=== PATIENT | female | born 1970 | race Caucasian/White ===

== ENCOUNTER 2023-08-06 07:36 | Outpatient (OUT) | payer BC, SELFPAY ==
[2023-08-06 07:56] LABS: Basophils Percent Auto 0.8 % (0.2-2.0); Eosinophils Absolute Auto 0.2 10^3/uL (0.0-0.7); Eosinophils Percent Auto 4.8 % (0.9-7.0); Hematocrit 38.3 % (36.0-48.0); Hemoglobin 12.4 g/dL (12.0-16.0); Immature Granulocytes Abs Auto 0.01 10^3/uL (0.00-0.03); Immature Granulocytes Pct Auto 0.2 % (0.0-0.5); Lymphocytes Absolute Auto 1.7 10^3/uL (1.2-3.8); Lymphocytes Percent Auto 34.6 % (20.5-60.0); Mean Corpuscular HGB Conc 32.4 g/dL (29.9-35.2); Mean Corpuscular Hemoglobin 30.1 pg (26.7-34.0); Mean Platelet Volume 10.2 fL (9.5-13.5); Monocytes Absolute Auto 0.5 10^3/uL (0.3-0.8); Monocytes Percent Auto 9.7 % (1.7-12.0); Neutrophils Absolute Auto 2.4 10^3/uL (1.4-6.5); Neutrophils Percent Auto 49.9 % (43.0-75.0); Platelet Count 290 10^3/uL (150-450); Red Blood Count 4.12 10^6/uL (4.20-5.40); Red Cell Distribution Width 12.1 % (11.0-15.0); White Blood Count 4.8 10^3/uL (4.0-11.0)
[2023-08-06 08:16] LABS: Estimated Average Glucose 103 mg/dL; Glycohemoglobin A1C 5.2 % (4.5-6.2)
[2023-08-06 08:27] LABS: Alanine Aminotransferase 33 U/L (14-59); Albumin Globulin Ratio 1.3; Albumin Level 3.9 g/dL (3.4-5.0); Alkaline Phosphatase 51 U/L (46-116); Anion Gap 8.4; Aspartate Amino Transferase 21 U/L (15-37); BUN Creatinine Ratio 32.8; Bilirubin Total 0.4 mg/dL (0.2-1.0); Calcium 9.1 mg/dL (8.5-10.1); Carbon Dioxide 31.8 mmol/L (21.0-32.0); Chloride 106 mmol/L (98-107); Chol HDL Ratio 2.6; Cholesterol 193 mg/dL (<=200); Estimated GFR (African America >60 (>=60); Estimated GFR (Non-African Ame >60 (>=60); Globulin 3.1 g/dL; Glucose 91 mg/dL (74-106); HDL Cholesterol 74 mg/dL (40-60); Potassium 4.2 mmol/L (3.5-5.1); Sodium 142 mmol/L (136-145); Thyroid Stimulating Hormone 4.201 uIU/mL (0.358-3.740); Triglycerides 60 mg/dL (<=150)
[2023-08-06 09:31] LABS: Free T4 0.86 ng/dL (0.76-1.46)
== END 2023-08-06 07:37 | disposition home or self-care (01) ==
PROVIDERS: PCP Family Medicine; Visit Provider Family Medicine
DX: R55 Syncope and collapse (principal); R94.6 Abnormal results of thyroid function studies; E78.1 Pure hyperglyceridemia; Z12.11 Encounter for screening for malignant neoplasm of colon; R53.83 Other fatigue; R73.09 Other abnormal glucose
CPT/HCPCS: 36415; 80053; 80061; 83036; 84439; 84443; 85025

== ENCOUNTER 2023-08-10 16:39 | Outpatient (OUT) | payer BC, SELFPAY | END 2023-08-10 16:40 | disposition home or self-care (01) | LOC: LAB 16:41 | PROVIDERS: PCP Family Medicine; Visit Provider Family Medicine | DX: R53.83 Other fatigue (principal) | CPT/HCPCS: 36415; 83540 ==

== ENCOUNTER 2023-08-22 11:01 | Outpatient (OUT) | payer BC, SELFPAY ==
[2023-08-22 11:59] LABS: Thyroid Stimulating Hormone 2.819 uIU/mL (0.358-3.740)
--- OUTSIDE RECORDS SUMMARY | 2023-10-02 13:57 | XMS_ITS | CCD ---
Author Name Unknown Address [address] [facility] [address] [place] [address] Organization [facility] Care Team Providers Care Medication Specialist Name Role Phone KHUSHI VELAZCO Referring Unavailable YADIRA UNDERWOOD Primary Care Unavailable KHUSHI VELAZCO Referring Unavailable YADIRA UNDERWOOD Primary Care Unavailable Yadira Underwood MD Primary Care Provider [phone] MONTY, DR MAY Admitting Unavailable HOY, DR MAY Attending Unavailable ROSANAY, DR MAY Primary Care Unavailable HOY, DR MAY Admitting Unavailable HOY, DR MAY Attending Unavailable HOY, DR MAY Primary Care Unavailable HOY, DR MAY Consulting Unavailable HOY, DR MAY Admitting Unavailable HOY, DR MAY Attending Unavailable HOY, DR MAY Primary Care Unavailable HOY, DR MAY Consulting Unavailable CLAUS LOCKWOOD Admitting Unavailable CLAUS LOCKWOOD Attending Unavailable ROSANAY, DR MAY Primary Care Unavailable HOY, DR MAY Admitting Unavailable HOY, DR MAY Attending Unavailable ROSANAY, DR MAY Primary Care Unavailable HOY, DR MAY Consulting Unavailable MONTY, DR MAY Admitting Unavailable HOY, DR MAY Attending Unavailable MONTY, DR MAY Primary Care Unavailable HOKaren, DR MAY Consulting Unavailable ROSANAY, DR MAY Admitting Unavailable HOY, DR MAY Attending Unavailable MONTY, DR MAY Primary Care Unavailable HOY, DR MAY Consulting Unavailable MONTY, DR MAY Admitting Unavailable MONTY, DR MAY Attending Unavailable MONTY, DR MAY Primary Care Unavailable MONTY, DR MAY Consulting Unavailable MONTY, DR MAY Admitting Unavailable HOY, DR MAY Attending Unavailable MONTY, DR MAY Primary Care Unavailable YADIRA UNDERWOOD Primary Care Unavailable KHUSHI VELAZCO Attending Unavailable Yadira Underwood MD Primary Care Provider [phone] Medications Completed/Discontinued Medications Medication Drug Class(es) Dates Sig (Normalized) Sig (Original) benzoyl peroxide 0.05 mg/mg / clindamycin 0.01 mg/mg topical gel (2 sources) Lincosamide Antibacterial Start: 04-14-2015 Clindamycin-Benzo yl Peroxide 1-5 % gel Use as directed. 0 04/14/2015 Active Comment on above: Use as directed. ferrous sulfate 325 mg oral tablet (2 sources) take 1 tablet by mina th once daily at breakfast ferrous sulfate (FEROSUL) 325 mg (65 mg iron) tablet Take 325 mg by mouth daily with breakfast. 0 Active Comment on above: Take 325 mg by mouth daily with breakfast. minocycline 50 mg oral capsule (2 sources) Tetracycline-class Drug take 1 capsule b y mouth twice daily minocycline (MINOCIN, DYNACIN) 50 mg capsule Take 50 mg by mouth twice daily. 0 Active Comment on above: Take 50 mg by mouth twice daily. spironolactone 50 mg oral tablet (2 sources) Aldosterone Antagonist Start: 06-18-2015 take 1 tablet by mouth twice daily spironolactone (ALDACTONE) 50 mg tablet Take 1 tablet by mouth twice daily. 0 06/18/2015 Active Comment on above: Take 1 tablet by mina th twice daily. Problems Active Problems Problem Classification Problem Date Documented Date Episodic/Chronic Deficiency and other anemia (5 sources) Anemia, unspecified; Translations: [ANEMIA UNSPECIFIED] Onset: 08-06-2022 Episodic Diabetes mellitus without complication (1 source) Other abnormal glucose; Translations: [OTHER ABNORMAL GLUCOSE] Onset: 07-10-2022 Episodic Immunizations and screening for infectious disease (4 sources) Other specified abnormal immunological findings in serum; Translations: [Anti-nuclear factor positive] Onset: 09-21-2017 09-21-2017 Episodic Nutritional deficiencies (1 source) Vitamin D deficiency, unspecified; Translations: [VITAMIN D DEFICIENCY UNSPECIFIED] Onset: 08-27-2022 Chronic Nutritional deficiencies (1 source) Iron deficiency; Translations: [IRON DEFICIENCY] Onset: 08-27-2022 Episodic Osteoarthritis (2 sources) Arthritis; Translations: [Unspecified osteoarthritis, unspecified site] Onset: 09-21-2017 09-21-2017 Chronic Residual codes; unclassified (1 source) Other insomnia; Translations: [OTHER INSOMNIA] Onset: 08-06-2022 Chronic Syncope (4 sources) Syncope and collapse; Translations: [SYNCOPE AND COLLAPSE] Onset: 08-02-2022 Episodic Unclassified (3 sources) CONTACT W/AND (SUSP) EXPOS COVID-19; Translations: [CONTACT W/AND (SUSP) EXPOS COVID-19] Onset: 09-10-2021 Past or Other Problems Problem Classification Problem Date Documented Da te Episodic/Chronic Acute bronchitis (1 source) Acute bronchitis, unspecified; Translations: [ACUTE BRONCHITIS UNSPECIFIED] Onset: 09-10-2021 Episodic Malaise and fatigue (2 sources) Malaise and fatigue; Translations: [Other malaise] Onset: 09-21-2017 09-21-2017 Episodic Unclassified (1 source) CONTACT W/AND (SUSP) EXPOS COVID-19; Translations: [CONTACT W/AND (SUSP) EXPOS COVID-19] Onset: 09-02-2021 Results Test Name Value Interpretation Reference Range Facil ity CBC AUTO DIFFon 08-22-2022 BASO # 0.0 103/ul Normal 0.0-0.1 [facility] Comment on above: Performed By: #### S EDR #### [facility] [address] [place] [address] Dr. Heather Day Basophils/100 WBC (Bld) 0.6 % Normal 0.2-2.0 [facility] Comment on above: Performed By: #### S EDR #### [facility] [address] [place] [address] Dr. Heather Day EO # 0.2 103/ul Normal 0.0-0.7 [facility] Comment on above: Performed By: #### S EDR #### [facility] [address] [place] [address] Dr. Heather Day Eosinophils/100 WBC (Bld) 3.2 % Normal 0.9-7.0 [facility] Comment on above: Performed By: #### S EDR #### [facility] [address] [place] [address] Dr. Heather Day Erythrocyte distribution wid th (RBC) [Ratio] 12.3 % Normal 11.0-15.0 [facility] Comment on above: Performed By: #### S EDR #### [facility] [address] [address] [address] Heather Day Hematocrit (Bld) [Volume fraction] 38.6 % Normal 3 6.0-48.0 [facility] Comment on above: Performed By: #### S EDR #### [facility] [address] [place] [address] Dr. Heather Day Hemoglobin (Bld) [Mass/Vol] 12.7 g/dL Normal 12.0-16. 0 [facility] Comment on above: Performed By: #### S EDR #### [facility] [address] [place] [address] Dr. Heather Day IG # 0.02 10e3/ul Normal 0.00-0.03 [facility] Comment on above: Performed By: #### S EDR #### [facility] [address] [place] [address] Dr. Heather Day IG % 0.3 % Normal 0.0-0.5 [facility] Comment on above: Performed By: #### S EDR #### [facility] [address] [place] [address] Dr. Heather Day LYMPH # 2.6 103/ul Normal 1.2-3.8 [facility] Comment on above: Performed By: #### S EDR #### [facility] [address] [place] [address] Dr. Heather Day Lymphocytes/100 WBC (Bld) 36.0 % Normal 20.5-60.0 [facility] Comment on above: Performed By: #### S EDR #### [facility] [address] [place] [address] Dr. Heather Day MANUAL DIFF REQ NO Normal [facility] Comment on above: Performed By: #### S EDR #### [facility] [address] [place] [address] Dr. Heather Day MCH (RBC) [Entitic mass] 29.7 pg Normal 26.7-34.0 [facility] Comment on above: Performed By: #### S EDR #### [facility] [address] [place] [address] Dr. Heather Day MCHC (RBC) [Mass/Vol] 32.9 g/dL Normal 29.9-35.2 [facility] Comment on above: Performed By: #### S EDR #### [facility] [address] [place] [address] Dr. Heather Day MCV (RBC) [Entitic vol] 90.2 fL Normal 81.0-99.0 [facility] Comment on above: Performed By: #### S EDR #### [facility] [address] [place] [address] Dr. Heather Day MONO # 0.5 103/ul Normal 0.3-0.8 [facility] Comment on above: Performed By: #### S EDR #### [facility] [address] [place] [address] Dr. Heather Day Monocytes/100 WBC (Bld) 6.8 % Normal 1.7-12.0 [facility] Comment on above: Performed By: #### S EDR #### [facility] [address] [place] [address] Dr. Heather Day NEUT # 3.8 103/ul Normal 1.4-6.5 [facility] Comment on above: Performed By: #### S EDR #### [facility] [address] [place] [address] Dr. Heather Day Neutrophils/100 WBC (Bld) 53.1 % Normal 43.0-75.0 [facility] Comment on above: Performed By: #### S EDR #### [facility] [address] [place] [address] Dr. Heather Day Platelet mean volume (Bld) [ Entitic vol] 10.1 fL Normal 9.5-13.5 [facility] Comment on above: Performed By: #### S EDR #### [facility] [address] [place] [address] Dr. Heather Day PLT 309 103/ul Normal 150-450 [facility] Comment on above: Performed By: #### S EDR #### [facility] [address] [address] [address] Heather Day RBC 4.28 106/ul Normal 4.20-5.40 [facility] Comment on above: Performed By: #### S EDR #### [facility] [address] [address] [address] Heather Day WBC 7.1 103/ul Normal 4.0-11.0 [facility] Comment on above: Performed By: #### S EDR #### [facility] [address] [place] [address] Dr. Heather Day FERRITINon 08-22-2022 Ferritin [Mass/Vol] 60.0 ng/mL Normal 8.0-252.[address] [facility] Comment on above: Performed By: #### F ERR, IRON #### [facility] [address] [place] [address] Dr. Heather Day IRONon 08-22-2022 Iron [Mass/Vol] 66.0 ug/dL Normal 50.0-170.0 [facility] Comment on above: Performed By: #### F ERR, IRON #### [facility] [address] [place] [address] Dr. Heather Day BETA 2 GLYCOPROTEIN, IGGon 1 Beta 2 glycoprotein 1 IgG IA Qn <9 Normal <20 [facility] Comment on above: Order Comment: Speci men Type: BLOOD SPECIMEN Ordering Facility: [facility] Address: [address] [place] [address] Result Comment: <20 SGU Negative 20-80 SGU Low Positive >80 SGU High Positive These results were obtained with the [employer] QUANTA Lite B2 GPI IgG LISSETTE. B2 GPI IgG values obtained with different manufacturers' assay methods may not be used interchangeably. The magnitude of the reported IgG levels cannot be correlated to an endpoint titer. Performed By: #### C ARDIG, BETA2M, BETA2G, 5076-5, CARDIM #### [facility] CLIA [id number] [address] [place] [address] [place] BETA 2 GLYCOPROTEIN, IGMon 1 Beta 2 glycoprotein 1 IgM IA Qn <9 Normal <20 [facility] Comment on above: Order Comment: Jeffrey schwartz Type: BLOOD SPECIMENOrdering Facility: [facility] Address: [address] [place] [address] Result Comment: <20 SMU Negative 20-80 SMU Low Positive >80 SMU High positive These results were obtained with the [employer] Lite B2 GPI IgM LISSETTE. B2 GPI IgM values obtained with different manufacturers' assay methods may not be used interchangeably. The magnitude of the reported IgM levels cannot be correlated to an endpoint titer. Performed By: #### C ARDIG, BETA2M, BETA2G, 5076-5, CARDIM ####[facility] [id number] [place] [address] [place] C3 SerPl-mCncon 08-10-2022 Complement C3 [Mass/Vol] 130 mg/dL Normal 86-166 [facility] Comment on above: Order Comment: Jeffrey schwartz Type: BLOOD SPECIMEN Ordering Facility: [facility] Address: [address] [place], [place] [address] Performed By: #### 4 498-2, 4485-9 #### [facility] CLIA [id number] [address] [place] [address] [place] C4 SerPl-mCncon 08-10-2022 Complement C4 [Mass/Vol] 28 mg/dL Normal 13-46 [facility] Comment on above: Order Comment: Jeffrey schwartz Type: BLOOD SPECIMEN Ordering Facility: [facility] Address: [address] [place], [place] [address] Performed By: #### 4 498-2, 4485-9 #### [facility] CLIA [id number] [address] [place] [address] [place] CARDIOLIPIN IGG ABSon 2021 Cardiolipin IgG IA Qn (S) <9.0 Normal <15.0 [facility] Comment on above: [facility] Type: BLOOD SPECIMENOrdering Facility: [facility] Address: [address] [place] [address] Result Comment: <15 GPL Negative 15-20 GPL Indeterminate >20 GPL Positive The following results were obtained with the [employer] QUANTA Lite TIFFANIE IgG III LISSETTE. Cardiolipin IgG values obtained with the different manufacturers' assay methods may not be used interchangeably. The magnitude of the reported IgG levels cannot be correlated to an endpoint titer. Performed By: #### C ARDIG, BETA2M, BETA2G, 5076-5, ALLYSON ####[facility] [id number] [address] CARDIOLIPIN IGM ABSon 2021 Cardiolipin IgM IA Qn (S) 9.1 MPL Normal <12.5 [facility] Comment on above: [facility] Comment: [facility] Type: BLOOD SPECIMENOrdering Facility: [facility] Address: [address] [place] [address] Result Comment: <12. 5 MPL Negative 12.5-20 MPL Indeterminate >20 MPL Positive The following results were obtained with the [employer] QUANTA Lite TIFFANIE IgM III LISSETTE. Cardiolipin IgM values obtained with the different manufacturers' assay methods may not be used interchangeably. The magnitude of the reported IgM levels cannot be correlated to an endpoint titer. ??? Performed By: #### C ARDIG, BETA2M, BETA2G, 5076-5, ALLYSON ####[facility] [id number] [address] CBC W Auto Differential pane l (Bld)on 08-10-2022 Basophils (Bld) [#/Vol] 0.03 10*3/uL Normal <0.11 [facility] Comment on above: Order Comment: [facility] Type: BLOOD SPECIMEN Ordering Facility: [facility] Address: [address] [place] [address] Performed By: #### 5 7021-8 #### [facility] CLIA [id number] [facility] [place] [address] [place] Basophils/100 WBC (Bld) 0.4 % Normal [facility] Comment on above: Order Comment: Speci men Type: BLOOD SPECIMEN Ordering Facility: [facility] Address: [address] [address] Performed By: #### 5 7021-8 #### [facility] [place] [id number] [address] [place] Differential cell count method Nom (Bld) Auto Normal [facility] Comment on above: Order Comment: Speci men Type: BLOOD SPECIMEN Ordering Facility: [facility] Address: [address] [place] [address] Performed By: #### 5 7021-8 #### [facility] [place] [id number] [address] [place] [address] [place] Eosinophils (Bld) [#/Vol] 0.13 10*3/uL Normal <0.46 [facility] Comment on above: Order Comment: Speci men Type: BLOOD SPECIMEN Ordering Facility: [facility] Address: [address] [place] [address] Performed By: #### 5 7021-8 #### [facility] [place] [id number] [address] OF [place] Eosinophils/100 WBC (Bld) 1.6 % Normal [facility] Comment on above: Order Comment: Speci men Type: BLOOD SPECIMEN Ordering Facility: [facility] Address: [address] [place] [address] Performed By: #### 5 7021-8 #### [facility] [place] [id number] [address] [place] Erythrocyte distribution width (RBC) [Ratio] 12.4 % No rmal 11.5-15.0 [facility] Comment on above: Order Comment: Speci men Type: BLOOD SPECIMEN Ordering Facility: [facility] Address: [address] [place] [address] Performed By: #### 5 7021-8 #### [facility] IA [id number] [address] [place] [address] [place] Hematocrit (Bld) [Volume fraction] 41.6 % Normal 3 6.0-46.0 [facility] Comment on above: Order Comment: Speci men Type: BLOOD SPECIMEN Ordering Facility: [facility] Address: [address] [place], [place] [address] Performed By: #### 5 7021-8 #### [facility] IA [id number] [address] [place] [address] [place] Hemoglobin (Bld) [Mass/Vol] 13.4 g/dL Normal 11.5-15. 5 [facility] Comment on above: Order Comment: Speci men Type: BLOOD SPECIMEN Ordering Facility: [facility] Address: [address] [place], [place] [address] Performed By: #### 5 7021-8 #### [facility] IA [id number] [address] [place] [address] [place] Immature granulocytes (Bld) [#/Vol] 10*3/uL Normal <0.10 [facility] Comment on above: Order Comment: Speci men Type: BLOOD SPECIMEN Ordering Facility: [facility] Address: [address] [place], [place] [address] Performed By: #### 5 7021-8 #### [facility] IA [id number] [address] [place] [address] [place] Immature granulocytes/100 WBC (Bld) 0.2 % Normal [facility] Comment on above: Order Comment: Speci men Type: BLOOD SPECIMEN Ordering Facility: [facility] Address: [address] [place], [place] [address] Performed By: #### 5 7021-8 #### [facility] IA [id number] [address] [place] [address] [place] Lymphocytes (Bld) [#/Vol] 2.36 10*3/uL Normal 1.00-4.0 0 [facility] Comment on above: Order Comment: Speci men Type: BLOOD SPECIMEN Ordering Facility: [facility] Address: [address] [place] [address] Performed By: #### 5 7021-8 #### [facility] IA [id number] [address] STATES OF [facility] Lymphocytes/100 WBC (Bld) 28.3 % Normal [facility] Comment on above: Order Comment: Speci men Type: BLOOD SPECIMEN Ordering Facility: [facility] Address: [address] [place] [address] Performed By: #### 5 7021-8 #### [facility] IA [id number] [place] [address] [place] MCH (RBC) [Entitic mass] 30.0 pg Normal 26.0-34.0 [facility] Comment on above: Order Comment: Speci men Type: BLOOD SPECIMEN Ordering Facility: [facility] Address: [address] [place] [address] Performed By: #### 5 7021-8 #### [facility] IA [id number] [address] [place] [address] [place] MCHC (RBC) [Mass/Vol] 32.2 g/dL Normal 30.5-36.0 [facility] Comment on above: Order Comment: Speci men Type: BLOOD SPECIMEN Ordering Facility: [facility] Address: [address] [place], [place] [address] Performed By: #### 5 7021-8 #### [facility] IA [id number] [address] [place] [address] [place] MCV (RBC) [Entitic vol] 93.1 fL Normal 80.0-100.0 [facility] Comment on above: Order Comment: Speci men Type: BLOOD SPECIMEN Ordering Facility: [facility] Address: [address] [place] [address] Performed By: #### 5 7021-8 #### [facility] IA [id number] [address] [place] [address] [place] Monocytes (Bld) [#/Vol] 0.62 10*3/uL Normal <0.87 [facility] Comment on above: Order Comment: Speci men Type: BLOOD SPECIMEN Ordering Facility: [facility] Address: [address] Performed By: #### 5 7021-8 #### [facility] CLIA [id number] [address] [place] [address] [place] Monocytes/100 WBC (Bld) 7.4 % Normal [facility] Comment on above: Order Comment: Speci men Type: BLOOD SPECIMEN Ordering Facility: [facility] Address: [address] [place], [place] [address] Performed By: #### 5 7021-8 #### [facility] IA [id number] [address] [place] [address] [place] Neutrophils (Bld) [#/Vol] 5.19 10*3/uL Normal 1.45-7.5 0 [facility] Comment on above: Order Comment: Speci men Type: BLOOD SPECIMEN Ordering Facility: [facility] Address: [address] [place], [place] [address] Performed By: #### 5 7021-8 #### [facility] IA [id number] [address] [place] [address] [place] Neutrophils/100 WBC (Bld) 62.1 % Normal [facility] Comment on above: Order Comment: Speci men Type: BLOOD SPECIMEN Ordering Facility: [facility] Address: [address] [place], [place] [address] Performed By: #### 5 7021-8 #### [facility] IA [id number] [address] [place] [address] [place] Nucleated RBC (Bld) [#/Vol] 10*3/uL Normal <0.01 [facility] Comment on above: Order Comment: Speci men Type: BLOOD SPECIMEN Ordering Facility: [facility] Address: [address] [place], [place] [address] Performed By: #### 5 7021-8 #### [facility] IA [id number] [address] [place] [address] [place] Nucleated RBC/100 WBC (Bld) [Ratio] 0.0 /100 WBC Normal [facility] Comment on above: Order Comment: Speci men Type: BLOOD SPECIMEN Ordering Facility: [facility] Address: [address] [place], [place] [address] Performed By: #### 5 7021-8 #### [facility] IA [id number] [address] [place] [address] [place] Platelet mean volume (Bld) [Entitic vol] 10.3 fL Normal 9.0-12.7 [facility] Comment on above: Order Comment: Speci men Type: BLOOD SPECIMEN Ordering Facility: [facility] Address: [address] [place], [place] [address] Performed By: #### 5 7021-8 #### [facility] IA [id number] [address] [place] [address] [place] Platelets (Bld) [#/Vol] 326 10*3/uL Normal 150-400 [facility] Comment on above: Order Comment: Speci men Type: BLOOD SPECIMEN Ordering Facility: [facility] Address: [address] [place], [place] [address] Performed By: #### 5 7021-8 #### [facility] IA [id number] [address] [place] [address] [place] RBC (Bld) [#/Vol] 4.47 10*6/uL Normal 3.90-5.20 [facility] Comment on above: Order Comment: Speci men Type: BLOOD SPECIMEN Ordering Facility: [facility] Address: [address] [place], [place] [address] Performed By: #### 5 7021-8 #### [facility] IA [id number] [address] [place] [address] [place] WBC (Bld) [#/Vol] 8.35 10*3/uL Normal 3.70-11.00 [facility] Comment on above: Order Comment: Jeffrey schwartz Type: BLOOD SPECIMEN Ordering Facility: [facility] Address: [address] [place], [place] [address] Performed By: #### 5 7021-8 #### [facility] CLIA [id number] [address] OF [facility] CK SerPl-cCncon 08-10-2022 CK [Catalytic activity/Vol] 56 U/L Normal 42-196 [facility] Comment on above: Order Comment: Jeffrey schwartz Type: BLOOD SPECIMEN Ordering Facility: [facility] Address: [address] [place] [address] Performed By: #### 2 157-6 #### [facility] CLIA [id number] CNOVon 08-10-2022 CNOV Office Visit (NOLAN ) DONTAE VIVEROS ([id number]) 1970 F Date Time Provider Department 08/10/22 2:00 PM KHUSHI VELAZCO During your visit today, we recorded the following information about you: Pulse Blood pressure Weight 73/minute 139/75 56.2 kg Khushi Velazco MD 09/04/2022 4:45 AM Signed 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 The history as it pertains to her current complaints is outlined as follows: -Sep 2017: was evaluated by touring production manager Dr. Donald Ty (with edits for brevity and focus): 46 year old female with PMHx significant for positive DOROTHY and joint pain October started having hair loss January and February started developing stiffness Mostly lower limb, hips and knees Whenever she sat for a long period of time Started developing low grade tempt 99.9, February through Jun Developing more fatigue during this time May-went on a gluten free diet No longer having low grade temps Takes ibuprofen, somewhat helps the joints Does help her headaches In the afternoon she feels like she has slurred speech She feels the ibuprofen helps the slurred speech? Joint pain is a 1/10 in severity Once A week the joint pain is more intense and wakes her up at night No swelling of the joints No rashes Sitting makes the joint pain worse Activity makes the joint pain better Can't give a time of how long it takes the joint pain to improve to baseline Surprisingly joint isn't at it's worse in the morning, just after she sits during the day Pain is more of a stiffness in quality + concentration difficulties No major memory troubles Fatigue is bad Sleep-sleeps 9-10 hours, doesn't feel refreshed No anxiety No depression No diarrhea or constipation... ...Joint pain-knees/ lateral thighs-no swelling, occurs after sitting for prolonged periods. Maybe early inflammatory arthritis but nothing significant on exam today. She has a positive DOROTHY of 1:320 although this may be related to the anti thyroid antibodies. Will get an DANIEL and DS DNA to better characterize. Her pain could be tendonitis as well. Had some IT pain on exam today. Will follow every few months to see if pain changes Fatigue-maybe secondary to underlying inflammatory process, unclear at this time. fibromyalgia ROS was mostly negative. 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 -she has chronic issues with tingling of the toes, slurring of words and trouble concentrating but in Jun 2022, she developed new onset generalized weakness, imbalance, all over tingling and nausea. She also has fleeting (lasting 20-30 seconds) episodes of presyncope. These symptoms are similar to the symptoms that she was experiencing in 2017 but she notes that the symptoms are more severe. She takes ibuprofen and the slurred speech and trouble concentrating improves briefly. -workup by PCP revealed iron deficiency anemia. . PCP advised her to start iron supplements -she has mild chronic aches (right hip and right thigh, no more than 3-4/10) and fatigue for several years. No worsening of these symptoms. No pain elsewhere. No joint swelling. EMS lasting only a few minutes. She has stiffness with periods of inactivity but it will resolve with a few minutes of movement -when asked, she admits to aphthous oral ulcer last week but no history of recurrent oral ulcers. -denies history of miscarriages, strokes, seizures, thromboembolic events, rash, skin photosensitivity, hematuria, digital ulcers, fingers/toes turning blue or blanching with cold exposure, personal or family history of psoriasis, uveitis, history of plantar fasciitis, or back pain. -she takes Ibuprofen 800 mg BID (up to TID) for headaches and concentration difficulties. Ibuprofen and Tylenol do not alleviate her musculoskeletal symptoms. Labs: (+)DOROTHY 1:320 homogeneous), (+)thyroglobulin Ab 57.7 H (<14.4). (-)DS DNA/DANIEL panel. UA negative. (-)RF/CCP. Normal sed rate and crp THERAPIES/MEDICATIONS TRIED NSAIDs: ibuprofen Others: Tylenol Injections in joints: none Injections in spine: none Review of Systems CONSTITUTION: Negative for: Fever and Recent weight change (+)fatigue HEENT: Positive for: Mouth sores (see [place]) Negative for: Trouble swallowing and Dry mouth RESPIRATORY: Positive for: Shortness of breath (DYKES) Negative for: Cough GASTROINTESTINAL: Negative for: Melena, Diarrhea and Abdominal pain (+)constipation MUSCULOSKELETAL: Positive for: Muscle weakness NEUROLOGICAL: Positive for: Headaches and Numbness (toes and infrequently toes) SKIN: Positive for: Hair loss Negative for: Rash, Sun Sensitive Rash and Skin changes EYES: Positive for: Eye dryness Negativ (more content not included)... Normal [facility] Cardiolipin IgA Ser IA-aCnco n 08-10-2022 Cardiolipin IgA IA Qn (S) <9.0 Normal <12.0 [facility] Comment on above: Order Comment: Speci men Type: BLOOD SPECIMENOrdering Facility: [facility] Address: [address] [place] [address] Result Comment: <12 APL Negative 12-20 APL Indeterminate >20 APL Positive The following results were obtained with the [employer] QUANTA Lite TIFFANIE IgA III LISSETTE. Cardiolipin IgA values obtained with the different manufacturers' assay methods may not be used interchangeably. The magnitude of the reported IgA levels cannot be correlated to an endpoint titer. Performed By: #### C ARDIG, BETA2M, BETA2G, 5076-5, CARDIM ####[facility] [id number] [address] OF [place] LUPUS PANELon 08-10-2022 aPTT Coag (Bld) [Time] 30.3 s Normal 24.0-35.1 [facility] Comment on above: Order Comment: Speci men Type: BLOOD SPECIMEN [facility] Address: [address] [address] Performed By: #### L UPPL #### [facility] CLIA [id number] [address] [place] [address] OF [place] aPTT W excess hexagonal phas e phospholipid Coag (PPP) [Time] 46.5 seconds Normal 34.0-51.8 A [facility] Comment on above: Order Comment: Speci men Type: BLOOD SPECIMEN [facility] Address: [address] [address] Performed By: #### L UPPL #### [facility] CLIA [id number] [address] [place] [address] Delta dRVVT Coag (PPP) [Time diff] 1.3 delta seconds Lore l <7.1 [facility] Comment on above: Order Comment: Speci men Type: BLOOD SPECIMEN [facility] Address: [address] Performed By: #### L UPPL #### [facility] CLIA [id number] [address] [place] [address] dRVVT Coag (PPP) [Time] 38.6 s Normal 32.0-45.7 A [facility] Comment on above: Order Comment: Speci men Type: BLOOD SPECIMEN [facility] Address: [address] Performed By: #### L UPPL #### [facility] CLIA [id number] [address] [place] [address] [place] dRVVT factor substitution im mediately after 1:2 addition of normal plasma Coag (PPP) [Time] 37.4 seconds Normal 32.0-45.7 [facility] Comment on above: Order Comment: Speci men Type: BLOOD SPECIMEN [facility] Address: [address] [place], [place] [address] Performed By: #### L UPPL #### [facility] CLIA [id number] [address] [place] [address] [place] dRVVT W excess hexagonal pha se phospholipid actual/normal Coag (PPP) [Relative time] 45.1 seconds Normal 34.2-47.9 [facility] Comment on above: Order Comment: Speci men Type: BLOOD SPECIMEN [facility] Address: [address] [place], [place] [address] Performed By: #### L UPPL #### [facility] [place] [id number] [address] [place] [address] [place] dRVVT/dRVVT.excess phospholipid Coag (PPP) [Ratio] 1.06 Normal <1.32 [facility] Comment on above: Order Comment: Speci men Type: BLOOD SPECIMEN [facility] Address: [address] [place], [place] [address] Performed By: #### L UPPL #### [facility] CLIA [id number] [address] [place] [address] [place] Lupus anticoagulant neutrali zation platelet Coag Ql (PPP) Negative Normal Negative [facility] Comment on above: Order Comment: Speci men Type: BLOOD SPECIMEN [facility] Address: [address] [place], [place] [address] Performed By: #### L UPPL #### [facility] IA [id number] [address] [place] [address] [place] Thrombin time Coag (PPP) [Time] 16.8 seconds Normal <1 8.6 [facility] Comment on above: Order Comment: Jeffrey schwartz Type: BLOOD SPECIMEN [facility] Address: [address] [place] [address] Performed By: #### L UPPL #### [facility] CLIA [id number] [address] [facility] DESK [id number] OF [place] PT panel Coag (PPP)on 2021 INR Coag (PPP) [Relative time] 1.0 {INR} Normal 0.9-1 .3 [facility] Comment on above: Order Comment: Jeffrey schwartz Type: BLOOD SPECIMEN [facility] Address: [address] [place] [address] Result Comment: Mere min K Antagonist (VKA) Therapeutic Range: INR 2 to 3 (Target INR of 2.5) Note: For patients treated with VKA drugs, such as warfarin, the [place] [employer] 2012 Guideline recommends a therapeutic INR range of 2 to 3 (target INR of 2.5). This recommendation includes high-risk patients with antiphospholipid syndrome with previous arterial or venous thromboembolism, current-generation mechanical or bioprosthetic aortic heart valve replacement. Note: Patients with mechanical aortic valve replacement and additional risk factors for thromboembolic events (atrial fibrillation, previous thromboembolism, LV dysfunction, hypercoagulable conditions) or an older generation mechanical AVR (i.e., ball in-Cage) or any mechanical MVR should have a INR therapeutic range of 2.5 to 3.5 (target INR of 3). Mary ETIENNE, et al. Chest 2012, 141:7S-47S Eugenio RA, et al. [facility] 2017, 70: 252-289 Performed By: #### 3 4528-0, 45701-9 #### [facility] CLIA [id number] [place] [place] [address] [place] [address] STATES [place] PT Coag (PPP) [Time] 10.4 s Normal 9.7-13.0 [facility] Comment on above: Order Comment: Jeffrey schwartz Type: BLOOD SPECIMEN [facility] Address: [address] [place] [address] Performed By: #### 3 4528-0, 13974-4 #### [facility] CLIA [id number] [address] STATES [place] URINALYSIS, DIPSTICK ONLYon 08-10-2022 Bilirubin Ql (U) Negative Normal Negative [facility] Comment on above: Order Comment: Speci men Type: URINE SPECIMENOrdering Facility: [facility] Address: [address] [place] [address] Performed By: #### U A ####[facility] [id number] [place] [address] [place] Clarity (Unsp spec) Clear Normal Clear [facility] Comment on above: Order Comment: Speci men Type: URINE SPECIMENOrdering Facility: [facility] Address: [address] [place] [address] Performed By: #### U A ####[facility] [id number] [place] [address] [place] Color (U) Yellow Normal Yellow [facility] Comment on above: Order Comment: Speci men Type: URINE SPECIMENOrdering Facility: [facility] Address: [address] [place] [address] Performed By: #### U A ####[facility] [id number] [place] [address] [place] Glucose Test strip (U) [Mass/Vol] Negative Normal Ne [facility] Comment on above: Order Comment: Speci men Type: URINE SPECIMENOrdering Facility: [facility] Address: [address] [place] [address] Performed By: #### U A ####[facility] [id number] [place] [address] [place] Hemoglobin Ql (U) Negative Normal Negative [facility] Comment on above: Order Comment: Speci men Type: URINE SPECIMENOrdering Facility: [facility] Address: [address] [place] [address] Performed By: #### U A ####[facility] [id number] [place] [address] [place] Ketones Ql (U) Trace Abnormal Negative [facility] Comment on above: Order Comment: Speci men Type: URINE SPECIMENOrdering Facility: [facility] Address: [address] [place] [address] Performed By: #### U A ####[facility] [id number] [address] STATES [place] Leukocyte esterase Test strip Ql (U) Trace Abnormal Negative [facility] Comment on above: Order Comment: Speci men Type: URINE SPECIMENOrdering Facility: [facility] Address: [address] [place] [address] Performed By: #### U A ####[facility] [id number] [place] [address] [place] Nitrite Ql (U) Negative Normal Negative [facility] Comment on above: Order Comment: Speci men Type: URINE SPECIMENOrdering Facility: [facility] Address: [address] [place] [address] Performed By: #### U A ####[facility] [id number] [place] [address] [place] pH (U) 6.0 [pH] Normal 5.0-8.0 [facility] Comment on above: Order Comment: Speci men Type: URINE SPECIMENOrdering Facility: [facility] Address: [address] [place] [address] Performed By: #### U A ####[facility] [id number] [address] STATES [place] Protein (U) [Mass/Vol] Negative Normal Negative [facility] Comment on above: Order Comment: Speci men Type: URINE SPECIMENOrdering Facility: [facility] Address: [address] [place] [address] Performed By: #### U A ####[facility] [id number] [place] [address] [place] [facility] Specific gravity (U) [Rel density] 1.010 Normal 1 .005-1.030 [facility] Comment on above: Order Comment: Speci men Type: URINE SPECIMENOrdering Facility: [facility] Address: [address] [place] [address] Performed By: #### U A ####[facility] [id number] [place] [address] [facility] OF [place] Urobilinogen Ql (U) 0.2 EU/dL Normal 0.2-1.0 EU/dL [facility] Comment on above: Order Comment: Speci men Type: URINE SPECIMENOrdering Facility: [facility] Address: [address] [place] [address] Performed By: #### U A ####[facility] [id number] [place] [address] [place] XR CHEST 2V FRONTAL/LATon XR CHEST 2V FRONTAL/LAT * * *Final Repor t* * * DATE OF EXAM: Aug 10 2022 3:43PM VHX [id number] - XR CHEST 2V FRONTAL/LAT / PROCEDURE REASON: Positive DOROTHY (antinuclear antibody) * * * * Physician Interpretation * * * * EXAMINATION: CHEST RADIOGRAPH (2 VIEW FRONTAL and LATERAL) CLINICAL HISTORY: Positive DOROTHY (antinuclear antibody) MQ: XC2_6 EXAM DATE/TIME: 08/10/2022 3:43 PM COMPARISON: No relevant prior studies available. RESULT: Lines, tubes, and devices: None. Lungs and pleura: No consolidation. No lung mass. No pleural effusion. No pneumothorax. Cardiomediastinal silhouette: Normal cardiomediastinal silhouette. Bones and soft tissues: Degenerative changes are present within the thoracic spine. IMPRESSION: No acute radiographic abnormality. Choral Teacher: DEDRA Transcribe Date/Time: Aug 10 2022 3:53P Dictated by : NISHI MOORE MD This examination was interpreted and the report reviewed and electronically signed by: NISHI MOORE MD on Aug 10 2022 3:53PM EST [id number] Normal [facility] ic aPTT PPPon 08-10-2022 aPTT Coag (PPP) [Time] 27.5 s Normal 23.0-32.4 [facility] Comment on above: Order Comment: Speci men Type: BLOOD SPECIMEN [facility] Address: [address] [place] [address] Performed By: #### 3 4528-0, 30207-6 #### [facility] CLIA [id number] [address] [place] [address] [place] IMMUNOGLOBULINS IGA/IGM/IGG/ IGE QUANTITAon 08-09-2022 Immunoglobulin A, Qn, Serum 113 mg/dL Normal 87-352 [facility] Comment on above: Result Comment: Perf ormed at: CB Performed By: #### I MMUNGF #### [facility] [address] [address] [address] Heather Day Immunoglobulin E, Total 5 IU/mL Critically low 6-495 [facility] Comment on above: Result Comment: Perf ormed at: BN Performed By: #### I MMUNGF #### [facility] [address] [address] [address] Heather Day Immunoglobulin G, Qn, Serum 798 mg/dL Normal 586-1602 [facility] Comment on above: Result Comment: Perf ormed at: CB Performed By: #### I MMUNGF #### [facility] [address] [address] [address] Heather Day Immunoglobulin M, Qn, Serum 67 mg/dL Normal 26-217 [facility] Comment on above: Result Comment: Perf ormed at: CB Performed By: #### I MMUNGF #### [facility] [address] [address] [address] Heather Day DOROTHY by IFAon 08-06-2022 Antinuclear Antibodies, IFA Positive Abnormal [facility] Comment on above: Result Comment: Nega tive <1:80 Borderline 1:80 Positive >1:80 Performed By: #### S [place] #### [facility] [address] [address] [address] Heather Day Centriole Pattern Normal [facility] Comment on above: Performed By: #### S [place] #### [facility] [address] [address] [address] Heather Day Centromere Pattern Normal [facility] Comment on above: Performed By: #### S [place] #### [facility] [address] [address] [address] Heather Day Homogeneous Pattern 1:320 Critically high [facility] Comment on above: Result Comment: ICAP nomenclature: AC-1 Performed By: #### S [place] #### [facility] [address] [address] [address] Heather Day Midbody Pattern Normal [facility] Comment on above: Performed By: #### S [place] #### [facility] [address] [address] [address] Heather Day Note: Comment Normal [facility] Comment on above: Result Comment: For more information abo ut Hep-2 cell patterns use ANApatterns.org, the official website for the International Consensus on Antinuclear Antibody (DOROTHY) Patterns (ICAP). A positive DOROTHY result may occur in healthy individuals (low titer) or be associated with a variety of diseases. See interpretation chart which is not all inclusive: . Pattern Antigen Detected Suggested Disease Association Homogeneous DNA(ds,ss), SLE - High titers Nucleosomes, Histones Drug-induced SLE Speckled Sm, [employer] TERRITORY MANAGER, SCL-70, SLE,MCTD,PSS (diffuse form), SS-A/SS-B Sjogrens Nucleolar SCL-70, PM- 1/SCL High titers Scleroderma, PM/DM Centromere Centromere PSS (limited form) w/Crest syndrome variable Nuclear Dot Sp100,m65-ptriqy Primary Biliary Cirrhosis Nuclear GP210, Primary Biliary Cirrhosis Membrane tenzin A,B,C Performed By: #### S [place] #### [facility] [address] [address] [address] Heather Day Nuclear Dot Pattern Normal [facility] Comment on above: Performed By: #### Nkechi BE #### [facility] [address] [address] [address] Heather Day Nuclear Membrane Pattern Normal [facility] Comment on above: Performed By: #### S [place] #### [facility] [address] [place] [address] Dr. Heather Day Nucleolar Pattern Normal [facility] Comment on above: Performed By: #### S [place] #### [facility] [address] [place] [address] Dr. Heather Day PCNA Pattern Normal [facility] Comment on above: Performed By: #### S [place] #### [facility] [address] [address] [address] Heather Day Speckled Pattern Normal [facility] Comment on above: Performed By: #### S [place] #### [facility] [address] [place] [address] Dr. Heather Day Spindle Apparatus Pattern Normal [facility] Comment on above: Performed By: #### S [place] #### [facility] [address] [place] [address] Dr. Heather Day DOROTHY DIRECTon 08-04-2022 DOROTHY Direct Negative Normal Negative [facility] Comment on above: Performed By: #### A NAD #### [facility] [address] [place] [address] Dr. Heather Day ANTISTREPTOLYSIN O AB (ASO)o n 08-04-2022 Antistreptolysin O Ab 49.4 IU/mL Normal 0.0-200.0 [facility] Comment on above: Performed By: #### A SOAB #### [facility] [address] [place] [address] Dr. Heather Day C3 and C4 COMPLEMENTon 08-04 Complement C3, Serum 112 mg/dL Normal 82-167 [facility] Comment on above: Performed By: #### S [place] #### [facility] [address] [place] [address] Dr. Heather Day Complement C4, Serum 22 mg/dL Normal 12-38 [facility] Comment on above: Performed By: #### S [place] #### [facility] [address] [place] [address] Dr. Heather Day SLE PROFILE Aon 10-21-2022 Anti-DNA (DS) Ab Qn <1 Normal 0-9 [facility] Comment on above: Result Comment: Nega tive <5 Equivocal 5 - 9 Positive >9 Performed By: #### S [place] #### [facility] [address] [place] [address] Dr. Heather Day Antichromatin Antibodies <0.2 Normal 0.0-0.9 [facility] Comment on above: Performed By: #### S [place] #### [facility] [address] [address] [address] Heather Day RA Latex Turbid. <10.0 Normal <14.0 [facility] Comment on above: Performed By: #### S [place] #### [facility] [address] [place] [address] Dr. Heather Day [employer] N[employer]ITION TERRITORY MANAGER Antibodies 0.7 AI Normal 0.0-0.9 [facility] Comment on above: Performed By: #### S [place] #### [facility] [address] [address] [address] Heather Day Sjogrbladimir's Anti-SS-A <0.2 Normal 0.0-0.9 [facility] Comment on above: Performed By: #### S [place] #### [facility] [address] [place] [address] Dr. Heather Day Sjogrbladimir's Anti-SS-B <0.2 Normal 0.0-0.9 [facility] Comment on above: Performed By: #### S [place] #### [facility] [address] [place] [address] Dr. Heather Day Perry Antibodies <0.2 Normal 0.0-0.9 [facility] Comment on above: Performed By: #### S [place] #### [facility] [address] [place] [address] Dr. Heather Day CBC AUTO DIFFon 08-02-2022 BASO # 0.0 103/ul Normal 0.0-0.1 [facility] Comment on above: Performed By: #### S EDR #### [facility] [address] [place] [address] Dr. Heather Day Basophils/100 WBC (Bld) 0.6 % Normal 0.2-2.0 [facility] Comment on above: Performed By: #### S EDR #### [facility] [address] [place] [address] Dr. Heather Day EO # 0.2 103/ul Normal 0.0-0.7 [facility] Comment on above: Performed By: #### S EDR #### [facility] [address] [place] [address] Dr. Heather Day Eosinophils/100 WBC (Bld) 3.6 % Normal 0.9-7.0 [facility] Comment on above: Performed By: #### S EDR #### [facility] [address] [place] [address] Dr. Heather Day Erythrocyte distribution wid th (RBC) [Ratio] 12.4 % Normal 11.0-15.0 [facility] Comment on above: Performed By: #### S EDR #### [facility] [address] [place] [address] Dr. Heather Day Hematocrit (Bld) [Volume fraction] 36.7 % Normal 3 6.0-48.0 [facility] Comment on above: Performed By: #### S EDR #### [facility] [address] [place] [address] Dr. Heather Day Hemoglobin (Bld) [Mass/Vol] 11.8 g/dL Critically low 12.0 -16.0 [facility] Comment on above: Performed By: #### S EDR #### [facility] [address] [place] [address] Dr. Heather Day IG # 0.01 10e3/ul Normal 0.00-0.03 [facility] Comment on above: Performed By: #### S EDR #### [facility] [address] [place] [address] Dr. Heather Day IG % 0.2 % Normal 0.0-0.5 [facility] Comment on above: Performed By: #### S EDR #### [facility] [address] [address] [address] Heather Day LYMPH # 2.4 103/ul Normal 1.2-3.8 [facility] Comment on above: Performed By: #### S EDR #### [facility] [address] [address] [address] Heather Day Lymphocytes/100 WBC (Bld) 38.1 % Normal 20.5-60.0 [facility] Comment on above: Performed By: #### S EDR #### [facility] [address] [address] [address] Heather Day MANUAL DIFF REQ NO Normal [facility] Comment on above: Performed By: #### S EDR #### [facility] [address] [place] [address] Dr. Heather Day MCH (RBC) [Entitic mass] 29.6 pg Normal 26.7-34.0 [facility] Comment on above: Performed By: #### S EDR #### [facility] [address] [place] [address] Dr. Heather Day MCHC (RBC) [Mass/Vol] 32.2 g/dL Normal 29.9-35.2 [facility] Comment on above: Performed By: #### S EDR #### [facility] [address] [place] [address] Dr. Heather Day MCV (RBC) [Entitic vol] 92.2 fL Normal 81.0-99.0 [facility] Comment on above: Performed By: #### S EDR #### [facility] [address] [place] [address] Dr. Heather Day MONO # 0.5 103/ul Normal 0.3-0.8 [facility] Comment on above: Performed By: #### S EDR #### [facility] [address] [place] [address] Dr. Heather Day Monocytes/100 WBC (Bld) 7.7 % Normal 1.7-12.0 [facility] Comment on above: Performed By: #### S EDR #### [facility] [address] [address] [address] Heather Day NEUT # 3.2 103/ul Normal 1.4-6.5 [facility] Comment on above: Performed By: #### S EDR #### [facility] [address] [address] [address] Heather Day Neutrophils/100 WBC (Bld) 49.8 % Normal 43.0-75.0 [facility] Comment on above: Performed By: #### S EDR #### [facility] [address] [address] [address] Heather Day Platelet mean volume (Bld) [ Entitic vol] 10.1 fL Normal 9.5-13.5 [facility] Comment on above: Performed By: #### S EDR #### [facility] [address] [address] [address] Heather Day PLT 290 103/ul Normal 150-450 [facility] Comment on above: Performed By: #### S EDR #### [facility] [address] [address] [address] Heather Day RBC 3.98 106/ul Critically low 4.20-5.40 [facility] Comment on above: Performed By: #### S EDR #### [facility] [address] [address] [address] Heather Day WBC 6.3 103/ul Normal 4.0-11.0 [facility] Comment on above: Performed By: #### S EDR #### [facility] [address] [address] [address] Heather Day CRPon 08-02-2022 CRP [Mass/Vol] mg/L Normal <=1.0 [facility] Comment on above: Performed By: #### S EDR #### [facility] [address] [address] [address] Heather Day FREE THYROXINE INDEX T7on FTI 2.45 Normal 1.30-4.50 [facility] Comment on above: Performed By: #### S EDR #### [facility] [address] [place] [address] Dr. Heather Day T3U 35.0 % Normal 30.0-39.0 [facility] Comment on above: Performed By: #### S EDR #### [facility] [address] [place] [address] Dr. Heather Day T4 [Mass/Vol] 7.00 ug/dL Normal 4.80-13.90 [facility] Comment on above: Performed By: #### S EDR #### [facility] [address] [place] [address] Dr. Heather Day IRONon 08-02-2022 Iron [Mass/Vol] 49.0 ug/dL Critically low 50.0-170.[address] [facility] Comment on above: Performed By: #### S EDR #### [facility] [address] [place] [address] Dr. Heather Day SED RATE WESTERGRENon 2021 SED RATE 4 mm/hr Normal <=30 [facility] Comment on above: Performed By: #### S EDR #### [facility] [address] [place] [address] Dr. Heather Day TSHon 08-02-2022 TSH 2.616 uIU/mL Normal 0.358-3.740 [facility] Comment on above: Performed By: #### S EDR #### [facility] [address] [place] [address] Dr. Heather Day URIC ACID SERUMon 08-02-2022 Urate [Mass/Vol] 2.1 mg/dL Critically low 2.6-6.0 [facility] Comment on above: Performed By: #### S EDR #### [facility] [address] [place] [address] Dr. Heather Day T4, T3U, FTI [facility] 07-08 Free Thyroxine Index 2.6 Normal 1.2-4.9 [facility] Comment on above: Performed By: #### S [place] #### [facility] [address] [place] [address] Dr. Heather Day T3 Uptake 32 % Normal 24-39 [facility] Comment on above: Performed By: #### S [place] #### [facility] [address] [place] [address] Dr. Heather Day T4 [Mass/Vol] 8.0 ug/dL Normal 4.5-12.0 [facility] Comment on above: Performed By: #### S [place] #### [facility] [address] [place] [address] Dr. Heather Day CBC AUTO DIFFon 07-07-2022 BASO # 0.0 103/ul Normal 0.0-0.1 [facility] Comment on above: Performed By: #### S [place] #### [facility] [address] [place] [address] Dr. Heather Day Basophils/100 WBC (Bld) 0.8 % Normal 0.2-2.0 [facility] Comment on above: Performed By: #### S [place] #### [facility] [address] [place] [address] Dr. Heather Day EO # 0.2 103/ul Normal 0.0-0.7 [facility] Comment on above: Performed By: #### S [place] #### [facility] [address] [place] [address] Dr. Heather Day Eosinophils/100 WBC (Bld) 3.7 % Normal 0.9-7.0 [facility] Comment on above: Performed By: #### S [place] #### [facility] [address] [place] [address] Dr. Heather Day Erythrocyte distribution wid th (RBC) [Ratio] 12.7 % Normal 11.0-15.0 [facility] Comment on above: Performed By: #### S [place] #### [facility] [address] [place] [address] Dr. Heather Day Hematocrit (Bld) [Volume fraction] 39.9 % Normal 3 6.0-48.0 [facility] Comment on above: Performed By: #### S [place] #### [facility] [address] [place] [address] Dr. Heather Day Hemoglobin (Bld) [Mass/Vol] 13.1 g/dL Normal 12.0-16. 0 [facility] Comment on above: Performed By: #### S [place] #### [facility] [address] [address] [address] Heather Day IG # 0.01 10e3/ul Normal 0.00-0.03 [facility] Comment on above: Performed By: #### S [place] #### [facility] [address] [place] [address] Dr. Heather Day IG % 0.2 % Normal 0.0-0.5 [facility] Comment on above: Performed By: #### S [place] #### [facility] [address] [place] [address] Dr. Heather Day LYMPH # 1.5 103/ul Normal 1.2-3.8 [facility] Comment on above: Performed By: #### S [place] #### [facility] [address] [place] [address] Dr. Heather Day Lymphocytes/100 WBC (Bld) 28.6 % Normal 20.5-60.0 [facility] Comment on above: Performed By: #### S [place] #### [facility] [address] [place] [address] Dr. Heather Day MANUAL DIFF REQ NO Normal [facility] Comment on above: Performed By: #### S [place] #### [facility] [address] [place] [address] Dr. Heather Day MCH (RBC) [Entitic mass] 29.8 pg Normal 26.7-34.0 [facility] Comment on above: Performed By: #### S [place] #### [facility] [address] [place] [address] Dr. Heather Day MCHC (RBC) [Mass/Vol] 32.8 g/dL Normal 29.9-35.2 [facility] Comment on above: Performed By: #### S [place] #### [facility] [address] [place] [address] Dr. Heather Day MCV (RBC) [Entitic vol] 90.7 fL Normal 81.0-99.0 [facility] Comment on above: Performed By: #### S [place] #### [facility] [address] [place] [address] Dr. Heather Day MONO # 0.5 103/ul Normal 0.3-0.8 [facility] Comment on above: Performed By: #### S [place] #### [facility] [address] [place] [address] Dr. Heather Day Monocytes/100 WBC (Bld) 10.4 % Normal 1.7-12.0 [facility] Comment on above: Performed By: #### S [place] #### [facility] [address] [place] [address] Dr. Heather Day NEUT # 2.9 103/ul Normal 1.4-6.5 [facility] Comment on above: Performed By: #### S [place] #### [facility] [address] [place] [address] Dr. Heather Day Neutrophils/100 WBC (Bld) 56.3 % Normal 43.0-75.0 [facility] Comment on above: Performed By: #### S [place] #### [facility] [address] [place] [address] Dr. Heather Day Platelet mean volume (Bld) [Entitic vol] 9.7 fL Normal 9.5-13.5 [facility] Comment on above: Performed By: #### S [place] #### [facility] [address] [place] [address] Dr. Heather Day PLT 301 103/ul Normal 150-450 [facility] Comment on above: Performed By: #### S [place] #### [facility] [address] [place] [address] Dr. Heather Day RBC 4.40 106/ul Normal 4.20-5.40 [facility] Comment on above: Performed By: #### S [place] #### [facility] [address] [address] [address] Heather Day WBC 5.2 103/ul Normal 4.0-11.0 [facility] Comment on above: Performed By: #### S [place] #### [facility] [address] [address] [address] Heather Day GLYCOHEMOGLOBIN A1Con 2021 ADA RECOMMENDATION SEE BELOW Normal [facility] Comment on above: Result Comment: ADA RECOMMENDED LIMIT 4.0 - 6.0 ADA THERAPEUTIC TARGET < 7.0 ACTION SUGGESTED > 7.0 Performed By: #### S EDR #### [facility] [address] [address] [address] Heather Day Glucose [Mass/Vol] 114 mg/dL Normal [facility] Comment on above: Performed By: #### S EDR #### [facility] [address] [address] [address] Heather Day HbA1c (Bld) [Mass fraction] 5.6 % Normal 4.5-6.2 [facility] Comment on above: Performed By: #### S EDR #### [facility] [address] [address] [address] Heather Day IRONon 07-07-2022 Iron [Mass/Vol] 124.0 ug/dL Normal 50.0-170.0 [facility] Comment on above: Performed By: #### S EDR #### [facility] [address] [address] [address] Heather Day PROF 14(COMP METB)on 022 Albumin [Mass/Vol] 4.4 g/dL Normal 3.4-5.0 [facility] Comment on above: Performed By: #### T SH, CMP #### [facility] [address] [address] [address] Heather Day Albumin/Globulin [Mass ratio] 1.4 {ratio} Normal [facility] Comment on above: Performed By: #### T SH, CMP #### [facility] [address] [address] [address] Heather Day ALP [Catalytic activity/Vol] 58 U/L Normal 46-116 [facility] Comment on above: Performed By: #### T SH, CMP #### [facility] [address] [address] [address] Heather Day ALT [Catalytic activity/Vol] 28 U/L Normal 14-59 [facility] Comment on above: Performed By: #### T SH, CMP #### [facility] [address] [address] [address] Heather Day Anion gap [Moles/Vol] 10.6 mmol/L Normal [facility] Comment on above: Performed By: #### T ELLIOTT, CMP #### [facility] [address] [place] [address] Dr. Heather Day AST [Catalytic activity/Vol] 19 U/L Normal 15-37 [facility] Comment on above: Performed By: #### T SH, CMP #### [facility] [address] [address] [address] Heather Day Bilirubin [Mass/Vol] 0.6 mg/dL Normal 0.2-1.0 [facility] Comment on above: Performed By: #### T ELLIOTT, CMP #### [facility] [address] [address] [address] Heather Day Calcium [Mass/Vol] 9.8 mg/dL Normal 8.5-10.1 [facility] Comment on above: Performed By: #### T SH, CMP #### [facility] [address] [address] [address] Heather Day Chloride [Moles/Vol] 103 mmol/L Normal 98-107 [facility] Comment on above: Performed By: #### T SH, CMP #### [facility] [address] [address] [address] Heather Day CO2 [Moles/Vol] 29.1 mmol/L Normal 21.0-32.0 [facility] Comment on above: Performed By: #### T SH, CMP #### [facility] [address] [address] [address] Heather Day Creatinine [Mass/Vol] 0.72 mg/dL Normal 0.55-1.02 [facility] Comment on above: Performed By: #### T SH, CMP #### [facility] [address] [address] [address] Heather Day EGFR-AF HAITIAN >60 Normal >=60 [facility] Comment on above: Performed By: #### T SH, CMP #### [facility] [address] [address] [address] Heather Day EGFR-NON AF HAITIAN >60 Normal >=60 [facility] Comment on above: Performed By: #### T SH, CMP #### [facility] [address] [address] [address] Heather Day Globulin (S) [Mass/Vol] 3.2 g/dL Normal [facility] Comment on above: Performed By: #### T SH, CMP #### [facility] [address] [address] [address] Heather Day Glucose [Mass/Vol] 100 mg/dL Normal 74-106 [facility] Comment on above: Performed By: #### T SH, CMP #### [facility] [address] [address] [address] Heather Day Potassium [Moles/Vol] 4.7 mmol/L Normal 3.5-5.1 [facility] Comment on above: Performed By: #### T SH, CMP #### [facility] [address] [address] [address] Heather Day Protein [Mass/Vol] 7.6 g/dL Normal 6.4-8.2 [facility] Comment on above: Performed By: #### T SH, CMP #### [facility] [address] [address] [address] Heather Day Sodium [Moles/Vol] 138 mmol/L Normal 136-145 [facility] Comment on above: Performed By: #### T SH, CMP #### [facility] [address] [place] [address] Dr. Heather Day Urea nitrogen [Mass/Vol] 17.0 mg/dL Normal 7.0-18.0 [facility] Comment on above: Performed By: #### T SH, CMP #### [facility] [address] [place] [address] Dr. Heather Day Urea nitrogen/Creatinine [Mass ratio] 23.6 mg/mg Normal [facility] Comment on above: Performed By: #### T SH, CMP #### [facility] [address] [place] [address] Dr. Heather Day TSHon 07-07-2022 TSH 2.099 uIU/mL Normal 0.358-3.740 [facility] Comment on above: Performed By: #### S [place] #### [facility] [address] [place] [address] Dr. Heather Day CBC AUTO DIFFon 12-16-2021 BASO # 0.0 103/ul Normal 0.0-0.1 [facility] Comment on above: Performed By: #### S EDR #### [facility] [address] [place] [address] Dr. Heather Day Basophils/100 WBC (Bld) 0.7 % Normal 0.2-2.0 [facility] Comment on above: Performed By: #### S EDR #### [facility] [address] [place] [address] Dr. Heather Day EO # 0.2 103/ul Normal 0.0-0.7 [facility] Comment on above: Performed By: #### S EDR #### [facility] [address] [place] [address] Dr. Heather Day Eosinophils/100 WBC (Bld) 5.1 % Normal 0.9-7.0 [facility] Comment on above: Performed By: #### S EDR #### [facility] [address] [place] [address] Dr. Heather Day Erythrocyte distribution wid th (RBC) [Ratio] 12.2 % Normal 11.0-15.0 [facility] Comment on above: Performed By: #### S EDR #### [facility] [address] [place] [address] Dr. Heather Day Hematocrit (Bld) [Volume fraction] 40.5 % Normal 3 6.0-48.0 [facility] Comment on above: Performed By: #### S EDR #### [facility] [address] [place] [address] Dr. Heather Day Hemoglobin (Bld) [Mass/Vol] 13.1 g/dL Normal 12.0-16. 0 [facility] Comment on above: Performed By: #### S EDR #### [facility] [address] [place] [address] Dr. Heather Day IG # 0.01 10e3/ul Normal 0.00-0.03 [facility] Comment on above: Performed By: #### S EDR #### [facility] [address] [place] [address] Dr. Heather Day IG % 0.2 % Normal 0.0-0.5 [facility] Comment on above: Performed By: #### S EDR #### [facility] [address] [place] [address] Dr. Heather Day LYMPH # 1.5 103/ul Normal 1.2-3.8 [facility] Comment on above: Performed By: #### S EDR #### [facility] [address] [place] [address] Dr. Heather Day Lymphocytes/100 WBC (Bld) 32.7 % Normal 20.5-60.0 [facility] Comment on above: Performed By: #### S EDR #### [facility] [address] [place] [address] Dr. Heather Day MANUAL DIFF REQ NO Normal [facility] Comment on above: Performed By: #### S EDR #### [facility] [address] [place] [address] Dr. Heather Day MCH (RBC) [Entitic mass] 29.8 pg Normal 26.7-34.0 [facility] Comment on above: Performed By: #### S EDR #### [facility] [address] [place] [address] Dr. Heather Day MCHC (RBC) [Mass/Vol] 32.3 g/dL Normal 29.9-35.2 [facility] Comment on above: Performed By: #### S EDR #### [facility] [address] [place] [address] Dr. Heahter Day MCV (RBC) [Entitic vol] 92.0 fL Normal 81.0-99.0 [facility] Comment on above: Performed By: #### S EDR #### [facility] [address] [place] [address] Dr. Heather Day MONO # 0.4 103/ul Normal 0.3-0.8 [facility] Comment on above: Performed By: #### S EDR #### [facility] [address] [place] [address] Dr. Heather Day Monocytes/100 WBC (Bld) 9.5 % Normal 1.7-12.0 [facility] Comment on above: Performed By: #### S EDR #### [facility] [address] [place] [address] Dr. Heather Day NEUT # 2.4 103/ul Normal 1.4-6.5 [facility] Comment on above: Performed By: #### S EDR #### [facility] [address] [place] [address] Dr. Heather Day Neutrophils/100 WBC (Bld) 51.8 % Normal 43.0-75.0 [facility] Comment on above: Performed By: #### S EDR #### [facility] [address] [place] [address] Dr. Heahter Day Platelet mean volume (Bld) [ Entitic vol] 10.1 fL Normal 9.5-13.5 [facility] Comment on above: Performed By: #### S EDR #### [facility] [address] [address] [address] Heather Day PLT 260 103/ul Normal 150-450 [facility] Comment on above: Performed By: #### S EDR #### [facility] [address] [address] [address] Heather Day RBC 4.40 106/ul Normal 4.20-5.40 [facility] Comment on above: Performed By: #### S EDR #### [facility] [address] [address] [address] Heather Day WBC 4.6 103/ul Normal 4.0-11.0 [facility] Comment on above: Performed By: #### S EDR #### [facility] [address] [place] [address] Dr. Heather Day FREE THYROXINE INDEX T7on FTI 2.63 Normal [facility] Comment on above: Performed By: #### S [place] #### [facility] [address] [place] [address] Dr. Heather Day T3U 35.0 % Normal 23.5-40.5 [facility] Comment on above: Performed By: #### S [place] #### [facility] [address] [place] [address] Dr. Heather Day T4 [Mass/Vol] 7.50 ug/dL Normal 5.53-11.00 [facility] Comment on above: Performed By: #### S [place] #### [facility] [address] [place] [address] Dr. Heather Day GLYCOHEMOGLOBIN A1Con 2021 ADA RECOMMENDATION ADA THERAPEUTIC TARG ET 6.0 - 7.0 ACTION SUGGESTED > 7.0 Normal [facility] Comment on above: Performed By: #### S [place] #### [facility] [address] [place] [address] Dr. Heather Day Glucose [Mass/Vol] 120 mg/dL Normal [facility] Comment on above: Performed By: #### S [place] #### [facility] [address] [place] [address] Dr. Heather Day HbA1c (Bld) [Mass fraction] 5.8 % Normal <=6.0 [facility] Comment on above: Performed By: #### S [place] #### [facility] [address] [place] [address] Dr. Heather Day IRONon 12-16-2021 Iron [Mass/Vol] 133.0 ug/dL Normal 37.0-170.0 [facility] Comment on above: Performed By: #### I KEREN #### [facility] [address] [place] [address] Dr. Heather Day LIPID PROFILEon 12-16-2021 CHOL-HDL RATIO NORM SEE BELOW Normal [facility] Comment on above: Result Comment: 3.3 - 4.4 LOW RISK 4.4 - 7.1 AVERAGE RISK 7.1 - 11.0 MODERATE RISK >11.0 HIGH RISK Performed By: #### S [place] #### [facility] [address] [place] [address] Dr. Heather Day Cholesterol [Mass/Vol] 193 mg/dL Normal <=200 [facility] Comment on above: Performed By: #### S [place] #### [facility] [address] [place] [address] Dr. Heather Day Cholesterol in HDL [Mass/Vol] 77 mg/dL Normal [facility] Comment on above: Performed By: #### S [place] #### [facility] [address] [address] [address] Heather Day Cholesterol in LDL [Mass/Vol] 104.8 mg/dL Normal [facility] Comment on above: Performed By: #### S [place] #### [facility] [address] [place] [address] Dr. Heather Day Cholesterol.total/Cholestero l in HDL [Mass ratio] 2.5 {ratio} Normal [facility] Comment on above: Performed By: #### S [place] #### [facility] [address] [place] [address] Dr. Heather Day HDL NORMAL > or = 60 mg/dl - LO W CARDIOVASCULAR RISK <40 mg/dl - HIGH CARDIOVASCULAR RISK Normal [facility] Comment on above: Performed By: #### S [place] #### [facility] [address] [address] [address] Heather Day LDL CALC NORMAL SEE BELOW Normal [facility] Comment on above: Result Comment: <100 mg/dl OPTIMAL 100 - 129 mg/dl NEAR OR ABOVE OPTIMAL 130 - 159 mg/dl BORDERLINE HIGH 160 - 189 mg/dl HIGH >190 mg/dl VERY HIGH Performed By: #### S [place] #### [facility] [address] [address] [address] Heather Day Triglyceride [Mass/Vol] 56 mg/dL Normal <=150 [facility] Comment on above: Performed By: #### S [place] #### [facility] [address] [address] [address] Heather Day VLDL CALC 11.2 mg/dL Normal [facility] Comment on above: Performed By: #### S [place] #### [facility] [address] [address] [address] Heather Day PROF 14(COMP METB)on 022 Albumin [Mass/Vol] 4.2 g/dL Normal 3.5-5.0 [facility] Comment on above: Performed By: #### S [place] #### [facility] [address] [address] [address] Heather Day Albumin/Globulin [Mass ratio] 1.2 {ratio} Normal [facility] Comment on above: Performed By: #### S [place] #### [facility] [address] [address] [address] Heather Day ALP [Catalytic activity/Vol] 60 U/L Normal 38-126 [facility] Comment on above: Performed By: #### S [place] #### [facility] [address] [address] [address] Heather Day ALT [Catalytic activity/Vol] 29 U/L Normal 9-52 [facility] Comment on above: Performed By: #### S [place] #### [facility] [address] [address] [address] Heather Day Anion gap [Moles/Vol] 11.7 mmol/L Normal [facility] Comment on above: Performed By: #### S [place] #### [facility] [address] [address] [address] Heather Day AST [Catalytic activity/Vol] 22 U/L Normal 14-36 [facility] Comment on above: Performed By: #### S [place] #### [facility] [address] [address] [address] Heather Day Bilirubin [Mass/Vol] 0.5 mg/dL Normal 0.2-1.3 [facility] Comment on above: Performed By: #### S [place] #### [facility] [address] [address] [address] Heather Day Calcium [Mass/Vol] 9.2 mg/dL Normal 8.4-10.2 [facility] Comment on above: Performed By: #### S [place] #### [facility] [address] [address] [address] Heather Day Chloride [Moles/Vol] 104 mmol/L Normal 98-107 [facility] Comment on above: Performed By: #### S [place] #### [facility] [address] [address] [address] Heather Day CO2 [Moles/Vol] 30.6 mmol/L Critically high 22.0-30.0 [facility] Comment on above: Performed By: #### S [place] #### [facility] [address] [address] [address] Heather Day Creatinine [Mass/Vol] 0.65 mg/dL Normal 0.52-1.04 [facility] Comment on above: Performed By: #### S [place] #### [facility] [address] [address] [address] Heather Day EGFR-AF HAITIAN >60 Normal >=60 [facility] Comment on above: Performed By: #### S [place] #### [facility] [address] [address] [address] Heather Day EGFR-NON AF HAITIAN >60 Normal >=60 [facility] Comment on above: Performed By: #### [place] #### [facility] [address] [address] [address] Heather Day Globulin (S) [Mass/Vol] 3.4 g/dL Normal [facility] Comment on above: Performed By: #### [place] #### [facility] [address] [address] [address] Heather Day Glucose [Mass/Vol] 91 mg/dL Normal 74-106 [facility] Comment on above: Performed By: #### [place] #### [facility] [address] [place] [address] Dr. Heather Day Potassium [Moles/Vol] 4.3 mmol/L Normal 3.4-5.0 [facility] Comment on above: Performed By: #### [place] #### [facility] [address] [place] [address] Dr. Heather Day Protein [Mass/Vol] 7.6 g/dL Normal 6.1-8.2 [facility] Comment on above: Performed By: #### [place] #### [facility] [address] [address] [address] Heather Day Sodium [Moles/Vol] 142 mmol/L Normal 137-145 [facility] Comment on above: Performed By: #### [place] #### [facility] [address] [address] [address] Heather Day Urea nitrogen [Mass/Vol] 22.0 mg/dL Critically high 7.0-17 .0 [facility] Comment on above: Performed By: #### [place] #### [facility] [address] [place] [address] Dr. Heather Day Urea nitrogen/Creatinine [Mass ratio] 33.8 mg/mg Normal [facility] Comment on above: Performed By: #### [place] #### [facility] [address] [address] [address] Heather Day TSHon 12-16-2021 TSH 2.806 uIU/mL Normal 0.470-4.680 [facility] Comment on above: Performed By: #### [place] #### [facility] [address] [address] [address] Heather Day TSH RANGE SEE BELOW Normal [facility] Comment on above: Result Comment: <0.3 4 UIU/ml HYPERTHYROID 0.34-5.60 UIU/ml EUTHYROID >5.60 UIU/ml HYPOTHYROID Performed By: #### [place] #### [facility] [address] [address] [address] Heather Day Covid-19 PCR ([facility])on 08-15 SARS-CoV-2 (COVID-19) RNA MEGAN+probe Ql (Unsp spec) Not detected Normal NOT DETECTED [facility] Comment on above: Result Comment: This test is not yet approved or cleared by the [place] FDA. When there are no FDA-approved or cleared tests available, and other criteria are met, FDA can make tests available under an emergency access mechanism called an Emergency Use Authorization (EUA). The EUA for this test is supported by the Auto Service Writer of Health and Human Service's (HHS's) declaration that circumstances exist to justify the emergency use of in vitro diagnostics for the detection and/or diagnosis of the virus that causes COVID-19. This EUA will remain in effect (meaning this test can be used) for the duration of the COVID-19 declaration justifying emergency of IVDs, unless it is terminated or revoked by FDA (after which the test may no longer be used). When diagnostic testing is negative, the possibility of a false negative should be considered in the context of a patient's recent exposures and the presence of clinical signs and symptoms consistent with SARS-CoV-2. Performed By: #### C VDTBH #### [facility] [address] [address] [address] Heather Day Encounters Encounter Date Encounter Type Care Provider Facility Start: 08-22-2022 End: 08-23-[address] YADIRA UNDERWOOD Facility:[facility] Start: 08-17-2022 ambulatory Khushi mcneill MD Work Phone: Rheumatology Comment on above: 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 Start: 08-10-2022 End: 08-11-2022 ambulatory KHUSHI VELAZCO Facility:[facility] Start: 08-10-2022 End: 08-10-2022 Subsequent hospital visit by physician [facility] Work Phone: [facility] Radiology General Comment on above: Positive DOROTHY (antinu clear antibody) [R76.8] Start: 08-02-2022 End: 08-03-[address] YADIRA UNDERWOOD Facility:[facility] Start: 07-07-2022 End: 07-08-[address] YADIRA UNDERWOOD Facility:[facility] Start: 06-28-2022 End: 06-29-[address] YADIRA UNDERWOOD Facility:[facility] Start: 06-28-2022 End: 06-29-[address] YADIRA UNDERWOOD Facility:[facility] Start: 12-20-2021 Encounter for genera l adult medical examination without abnormal findings DR YADIRA UNDERWOOD [facility] Start: 12-16-2021 End: 12-17-2021 Encounter for general adult medical examination without abnormal findings DR YADIRA UNDERWOOD Facility:[facility] Start: 12-16-2021 End: 12-17-[address] YADIRA UNDERWOOD Facility:[facility] Start: 09-26-2021 ambulatory CLAUS LOCKWOOD Facility:[facility] Start: 09-02-2021 End: 09-02-[address] YADIRA UNDERWOOD Facility:[facility] Procedures Date Procedure Procedure Detail Performing Clinician Start: 08-10-2022 Radiologic exam ches t 2 views Khushi Velazco MD Work Phone: Plan of Treatment Date Care Activity Detail Author Start: 06-15-2023 Covid-19 Vaccine ( season) Covid-19 Vaccine ( season) [facility] Start: 06-15-2023 Influenza vaccination Influenza Vacc ine (#1) [facility] Start: 10-15-2022 Depression Assessment Depression Ass essment [facility] Start: 06-15-2022 Influenza vaccination INFLUENZA (#1) [facility] Start: 10-15-2021 DEPRESSION ASSESSMENT DEPRESSION ASS ESSMENT [facility] Start: 03-14-2021 COVID-19 VACCINE (3 - Booster for Pfizer series) COVID-19 VACCINE (3 - Booster for Pfizer series) [facility] Start: 09-21-2020 DIABETES SCREEN DIABETES SCREEN [facility] Start: 09-21-2020 Diabetes Screening Diabetes Screenin g [facility] Start: 2019 SHINGRIX VACCINE (1 of 2) SHINGRIX V ACCINE (1 of 2) [facility] Start: 2014 COLOGUARD (FIT-DNA) COLOGUARD (FIT-D NA) [facility] Start: 2014 Colonoscopy COLONOSCOPY [facility] Start: 2014 COLORECTAL CANCER SCREENING COLORECTAL CANCER SCREENING [facility] Start: [address] COLONOGRAPHY [facility] Start: 2014 FECAL OCCULT BLOOD FECAL OCCULT BLOO D [facility] Start: 2014 Lipid 1996 panel - S jose enrique or Plasma Lipid Screening [facility] Start: 2014 LIPID SCREEN LIPID SCREEN [facility] Start: 2014 SIGMOIDOSCOPY SIGMOIDOSCOPY [facility] Start: 2009 Mammography [facility] Start: 1999 HPV TESTING HPV TESTING [facility] Start: 1990 PAP TESTING PAP TESTING [facility] Start: 1988 Urine microalbumin profile [facility] Start: 1987 HEPATITIS C SCREENING HEPATITIS C SC REENING [facility] Start: 1987 HIV SCREENING HIV SCREENING [facility] Start: 1969 HEPATITIS B (1 of 3 - 3-dose series) HEPATITIS B (1 of 3 - 3-dose series) [facility] Start: 1969 Hepatitis B Vaccine (1 of 3 - 3-dose series) Hepatitis B Vaccine (1 of 3 - 3-dose series) [facility] Payers Date Payer Category Payer Unknown [employer]I BLUE CARD PPO OOS [id number] 2021-Present [phone] [facility] [id number] [place] [address] PPO [id number] 1969 Unknown [id number] 1969 Unknown [id number] 1969 Unknown [id number] 1969 Unknown [id number] 1969 Unknown [id number] 1969 Unknown [id number] 1969 Unknown [id number] 1969 Unknown [id number] 1969 Unknown [id number] 1959 Self-pay 1959 Unknown [id number] Social History Date Type Detail Facility Start: 08-10-2022 Tobacco smoking stat [facility] Never smoked tobacco [facility] Start: 08-10-2022 Tobacco use and exposure Smoke less tobacco non-user [facility] Start: 08-10-2022 End: 08-13-2022 Alcohol intake Current non-drinker of alcohol (finding) [facility] Start: 1970 Sex Assigned At Not on file [facility] Start: 07-31-2022 End: 08-10-2022 Exposure to SARS-CoV-2 (event) Not sure [facility] Start: 09-22-2020 End: 08-10-2022 History of Social function [facility] Start: 09-22-2020 End: 08-10-2022 Tobacco use panel [facility] National Score (1-10 0), lower number is lower risk Not on file [facility] Progress note 08-10-2022 Note Date & Type Note Facility 08-10-2022 Note HNO ID: [id number] Author: RT Tam(R) Service: ? Author Type: Technologist Type: Progress Notes Filed: 08/10/2022 3:47 PM Note Text: Radiology Service Progress Note PATIENT NAME: Dontae West DATE OF SERVICE: August 10, 2022 TIME: 3:47 PM PATIENT IDENTITY VERIFICATION COMPLETED USING TWO (2) IDENTIFIERS: Name and Date of confirmed by patient verbally and Name and Date of confirmed by identification band. FALL SCREENING: Has the patient had 2 falls in the last year or 1 fall with injury or currently using an Ambulatory Assistive Device (Walker, Cane, Wheelchair, Crutches, etc.)? No PATIENT GENDER DATA: Female. status: : No status: NO. PATIENT RELEVANT IMPLANT DATA REVIEWED: Not Applicable RADIOLOGY DEPARTMENT: General X-ray: Exam(s) Completed: Chest X-Ray PERIPHERAL IV DATA: Not applicable SIGNED BY: RT Tam(R) August 10, 2022 3:47 PM [facility] Progress note 08-10-2022 Note Date & Type Note Facility 08-10-2022 Note HNO ID: [id number] Author: Khushi Velazco MD Service: ? 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 The history as it pertains to her current complaints is outlined as follows: -Sep 2017: was evaluated by touring production manager Dr. Donald Ty (with edits for brevity and focus): 46 year old female with PMHx significant for positive DOROTHY and joint pain October started having hair loss January and February started developing stiffness Mostly lower limb, hips and knees Whenever she sat for a long period of time Started developing low grade tempt 99.9, February through Jun Developing more fatigue during this time May-went on a gluten free diet No longer having low grade temps Takes ibuprofen, somewhat helps the joints Does help her headaches In the afternoon she feels like she has slurred speech She feels the ibuprofen helps the slurred speech? Joint pain is a 1/10 in severity Once A week the joint pain is more intense and wakes her up at night No swelling of the joints No rashes Sitting makes the joint pain worse Activity makes the joint pain better Can't give a time of how long it takes the joint pain to improve to baseline Surprisingly joint isn't at it's worse in the morning, just after she sits during the day Pain is more of a stiffness in quality + concentration difficulties No major memory troubles Fatigue is bad Sleep-sleeps 9-10 hours, doesn't feel refreshed No anxiety No depression No diarrhea or constipation... ...Joint pain-knees/ lateral thighs-no swelling, occurs after sitting for prolonged periods. Maybe early inflammatory arthritis but nothing significant on exam today. She has a positive DOROTHY of 1:320 although this may be related to the anti thyroid antibodies. Will get an DANIEL and DS DNA to better characterize. Her pain could be tendonitis as well. Had some IT pain on exam today. Will follow every few months to see if pain changes Fatigue-maybe secondary to underlying inflammatory process, unclear at this time. fibromyalgia ROS was mostly negative. 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 -she has chronic issues with tingling of the toes, slurring of words and trouble concentrating but in Jun 2022, she developed new onset generalized weakness, imbalance, all over tingling and nausea. She also has fleeting (lasting 20-30 seconds) episodes of presyncope. These symptoms are similar to the symptoms that she was experiencing in 2016 but she notes that the symptoms are more severe. She takes ibuprofen and the slurred speech and trouble concentrating improves briefly. -workup by PCP revealed iron deficiency anemia. . PCP advised her to start iron supplements -she has mild chronic aches (right hip and right thigh, no more than 3-4/10) and fatigue for several years. No worsening of these symptoms. No pain elsewhere. No joint swelling. EMS lasting only a few minutes. She has stiffness with periods of inactivity but it will resolve with a few minutes of movement -when asked, she admits to aphthous oral ulcer last week but no history of recurrent oral ulcers. -denies history of miscarriages, strokes, seizures, thromboembolic events, rash, skin photosensitivity, hematuria, digital ulcers, fingers/toes turning blue or blanching with cold exposure, personal or family history of psoriasis, uveitis, history of plantar fasciitis, or back pain. -she takes Ibuprofen 800 mg BID (up to TID) for headaches and concentration difficulties. Ibuprofen and Tylenol do not alleviate her musculoskeletal symptoms. Labs: (+)DOROTHY 1:320 homogeneous), (+)thyroglobulin Ab 57.7 H (<14.4). (-)DS DNA/DANIEL panel. UA negative. (-)RF/CCP. Normal sed rate and crp THERAPIES/MEDICATIONS TRIED NSAIDs: ibuprofen Others: Tylenol Injections in joints: none Injections in spine: none Review of Systems CONSTITUTION: Negative for: Fever and Recent weight change (+)fatigue HEENT: Positive for: Mouth sores (see [place]) Negative for: Trouble swallowing and Dry mouth RESPIRATORY: Positive for: Shortness of breath ([place]) Negative for: Cough GASTROINTESTINAL: Negative for: Melena, Diarrhea and Abdominal pain (+)constipation MUSCULOSKELETAL: Positive for: Muscle weakness NEUROLOGICAL: Positive for: Headaches and Numbness (toes and infrequently toes) SKIN: Positive for: Hair loss Negative for: Rash, Sun Sensitive Rash and Skin changes EYES: Positive for: Eye dryness Negative for: Eye pain and Eye redness CARDIOVASCULAR: Negative for: Chest pain GENITOURINARY: Negative for: Dysuria and Hematuria HEMATOLOGIC/LYMPHATIC: PCP Yadira Underwood MD, MD PAST MEDICAL HISTORY Diagnosis Date Cataract Dry eye Macular (more content not included)... [facility] History of Present illness Narrative 08-10-2022 Kaylyn Ochoa RT(R) - 08/10/2022 3:50 PM EDT Note Date & Type Note Facility 08-10-2022 History of Presen t illness Narrative Radiology Service Progress Note PATIENT NAME: Dontae West DATE OF SERVICE: August 10, 2022 TIME: 3:47 PM PATIENT IDENTITY VERIFICATION COMPLETED USING TWO (2) IDENTIFIERS: Name and Date of confirmed by patient verbally and Name and Date of confirmed by identification band. FALL SCREENING: Has the patient had 2 falls in the last year or 1 fall with injury or currently using an Ambulatory Assistive Device (Walker, Cane, Wheelchair, Crutches, etc.)? No PATIENT GENDER DATA: Female. status: : No status: NO. PATIENT RELEVANT IMPLANT DATA REVIEWED: Not Applicable RADIOLOGY DEPARTMENT: General X-ray: Exam(s) Completed: Chest X-Ray PERIPHERAL IV DATA: Not applicable SIGNED BY: RT Tam(R) August 10, 2022 3:47 PM documented in this encounter [facility] Evaluation note Note Date & Type Note Facility Evaluation note Diagnosis Positive DOROTHY (antinuclear antibody) Other and unspecified nonspecific immunological findings documented in this encounter [facility] Summary Purpose Family History No Family History Records FoundNo Family History Records FoundNo Family History Records Found Advance Directives No Advanced Directives Records FoundNo Advanced Directives Records FoundNo Advanced Directives Records Found Additional Source Comments INFORMATION SOURCE (unrecogn ized section and content) DATE CREATED AUTHOR 08/12/2022 [facility] DATE CREATED AUTHOR AUTHOR'S ORGANIZ ATION 08/27/2022 [facility] DATE CREATED AUTHOR AUTHOR'S ORGANIZ ATION 09/04/2022 [facility] Source Comments (unrecognize d section and content) In the event this informatio n is protected by the Federal Confidentiality of Alcohol and Drug Abuse Patient Records regulations: The Federal rules restrict any use of the information to criminally investigate or prosecute any alcohol or drug abuse patient.[facility] the event this information is protected by the Federal Confidentiality of Alcohol and Drug Abuse Patient Records regulations: The Federal rules restrict any use of the information to criminally investigate or prosecute any alcohol or drug abuse patient.[facility] Care Teams (unrecognized sec tion and content) Medication Specialist Relationship Specialty Start Date End Date Yadira Underwood MD PCP - General Family Medicine 06/12/17 Medication Specialist Relationship Specialty Start Date End Date Yadira Underwood MD PCP - General Family Medicine 06/12/17 FOR RECORDS PERTAINING TO PATIENTS WHO ARE OR HAVE BEEN ENROLLED IN A CHEMICAL DEPENDENCY/SUBSTANCEABUSE PROGRAM, SOME INFORMATION MAY BE OMITTED. This clinical summary was aggregated from multiple sources. Caution should be exercised in using it in the provision of clinical care. This summary normalizes information from multiple sources, and as a consequence, information in this document may materially change the coding, format and clinical context of patient data. In addition, data may be omitted in some cases. CLINICAL DECISIONS SHOULD BE BASED ON THE PRIMARY CLINICAL RECORDS. [facility]. provides no warranty or guarantee of the accuracy or completeness of information in this document.
== END 2023-08-22 11:02 | disposition home or self-care (01) ==
LOC: LAB 11:03
PROVIDERS: PCP Family Medicine; Visit Provider Family Medicine
DX: R53.83 Other fatigue (principal)
CPT/HCPCS: 36415; 83540; 84436; 84443; 84481

== ENCOUNTER 2023-12-19 07:33 | Outpatient (OUT) | payer BC, SELFPAY ==
--- OUTSIDE RECORDS SUMMARY | 2023-12-19 07:36 | XMS_ITS | CCD ---
Author Name Unknown Address [address] [facility] [address] [place] [address] Organization [facility] Care Team Providers Care Direct Chill Caster Name Role Phone KHUSHI VELAZCO Referring Unavailable YADIRA UNDERWOOD Primary Care Unavailable KHUSHI VELAZCO Referring Unavailable YADIRA UNDERWOOD Primary Care Unavailable Yadira Underwood MD Primary Care Provider [phone] MONTY, DR MAY Admitting Unavailable HOY, DR [...] Unavailable ROSANAY, DR MAY Primary Care Unavailable ROSANAY, DR MAY Consulting Unavailable MONTY, DR MAY Admitting Unavailable ROSANAY, DR MAY Attending Unavailable MONTY, DR MAY Primary Care Unavailable HOKaren, DR MAY Consulting Unavailable ROSANAY, DR MAY Admitting Unavailable HOY, DR MAY Attending Unavailable MONTY, DR MAY Primary Care Unavailable MONTY, DR MAY Consulting Unavailable MONTY, DR MAY Admitting Unavailable MONTY, DR MAY Attending Unavailable MONTY, DR MAY Primary Care Unavailable MONTY, DR MAY Consulting Unavailable ROSANAY, DR MAY Admitting Unavailable HOY, DR MAY Attending Unavailable MONTY, DR MAY Primary Care Unavailable YADIRA UNDERWOOD Primary Care Unavailable KHUSHI VELAZCO Attending Unavailable Yadira Underwood MD Primary Care Provider [phone] Medications Completed/Discontinued Medications Medication Drug Class(es) Dates Sig (Normalized) Sig (Original) benzoyl peroxide 0.05 mg/mg / clindamycin 0.01 mg/mg topical gel (2 sources) Lincosamide Antibacterial Start: 04-14-2015 Clindamycin-Benzoyl Peroxide 1-5 % gel Use as directed. 0 04/14/2015 Active Comment on above: Use as directed. ferrous sulfate 325 mg oral tablet (2 sources) take 1 tablet by mouth once daily at breakfast ferrous sulfate (FEROSUL) 325 mg (65 mg iron) tablet Take 325 mg by mouth daily with breakfast. 0 Active Comment on above: Take 325 mg by mouth daily with breakfast. minocycline 50 mg oral capsule (2 sources) Tetracycline-class Drug take 1 capsule by mouth twice daily minocycline (MINOCIN, DYNACIN) 50 [...] Results Test Name Value Interpretation Reference Range Facility CBC AUTO DIFFon 08-22-2022 BASO # 0.0 103/ul Normal 0.0-0.1 [facility] Comment on above: Performed By: #### S EDR #### [facility] [address] [place] [address] Dr. Heather Day Basophils/100 WBC (Bld) 0.6 % Normal 0.2-2.0 [facility] Comment on above: Performed By: #### S EDR #### [facility] [address] [place] [address] Dr. Heather Day EO # 0.2 103/ul Normal 0.0-0.7 [facility] Comment on above: Performed By: #### S EDR #### [facility] [address] [place] [address] Dr. Heather Day Eosinophils/100 WBC (Bld) 3.2 % Normal 0.9-7.0 [facility] Comment on above: Performed By: #### S EDR #### [facility] [address] [place] [address] Dr. Heather Day Erythrocyte distribution width (RBC) [Ratio] 12.3 % Normal 11.0-15.0 [facility] Comment on above: Performed By: #### S EDR #### [facility] [address] [address] [address] Heather Day Hematocrit (Bld) [Volume fraction] 38.6 % Normal 36.0-48.0 [facility] Comment on above: Performed By: #### S EDR #### [facility] [address] [address] [address] Heather Day Hemoglobin (Bld) [Mass/Vol] 12.7 g/dL Normal 12.0-16.0 [facility] Comment on above: Performed By: #### S EDR #### [facility] [address] [address] [address] Heather Day IG # 0.02 10e3/ul Normal 0.00-0.03 [facility] Comment on above: Performed By: #### S EDR #### [facility] [address] [place] [address] Dr. Heather Day IG % 0.3 % Normal 0.0-0.5 [facility] Comment on above: Performed By: #### S EDR #### [facility] [address] [place] [address] Dr. Heather Day LYMPH # 2.6 103/ul Normal 1.2-3.8 [facility] Comment on above: Performed By: #### S EDR #### [facility] [address] [place] [address] Dr. Heather Day Lymphocytes/100 WBC (Bld) 36.0 % Normal 20.5-60.0 [facility] Comment on above: Performed By: #### S EDR #### [facility] [address] [place] [address] Dr. Heather Day MANUAL DIFF REQ NO Normal [facility] Comment on above: Performed By: #### S EDR #### [facility] [address] [place] [address] Dr. Heather Day MCH (RBC) [Entitic mass] 29.7 pg Normal 26.7-34.0 [facility] Comment on above: Performed By: #### S EDR #### [facility] [address] [place] [address] Dr. Heather Day MCHC (RBC) [Mass/Vol] 32.9 g/dL Normal 29.9-35.2 [facility] Comment on above: Performed By: #### S EDR #### [facility] [address] [address] [address] Heather Day MCV (RBC) [Entitic vol] 90.2 fL Normal 81.0-99.0 [facility] Comment on above: Performed By: #### S EDR #### [facility] [address] [address] [address] Heather Day MONO # 0.5 103/ul Normal 0.3-0.8 [facility] Comment on above: Performed By: #### S EDR #### [facility] [address] [address] [address] Heather Day Monocytes/100 WBC (Bld) 6.8 % Normal 1.7-12.0 [facility] Comment on above: Performed By: #### S EDR #### [facility] [address] [address] [address] Heather Day NEUT # 3.8 103/ul Normal 1.4-6.5 [facility] Comment on above: Performed By: #### S EDR #### [facility] [address] [address] [address] Heather Day Neutrophils/100 WBC (Bld) 53.1 % Normal 43.0-75.0 [facility] Comment on above: Performed By: #### S EDR #### [facility] [address] [address] [address] Heather Day Platelet mean volume (Bld) [Entitic vol] 10.1 fL Normal 9.5-13.5 [facility] Comment on above: Performed By: #### S EDR #### [facility] [address] [address] [address] Heather Day PLT 309 103/ul Normal 150-450 [facility] Comment on above: Performed By: #### S EDR #### [facility] [address] [address] [address] Heather Day RBC 4.28 106/ul Normal 4.20-5.40 [facility] Comment on above: Performed By: #### S EDR #### [facility] [address] [address] [address] Heather Day WBC 7.1 103/ul Normal 4.0-11.0 [facility] Comment on above: Performed By: #### S EDR #### [facility] [address] [place] [address] Dr. Heather Day FERRITINon 08-22-2022 Ferritin [Mass/Vol] 60.0 ng/mL Normal 8.0-252.0 [facility] Comment on above: Performed By: #### F ERR, IRON #### [facility] [address] [place] [address] Dr. Heahter Day IRONon 08-22-2022 Iron [Mass/Vol] 66.0 ug/dL Normal 50.0-170.0 [facility] Comment on above: Performed By: #### F ERR, IRON #### [facility] [address] [place] [address] Dr. Heather Day BETA 2 GLYCOPROTEIN, IGGon Beta 2 glycoprotein 1 IgG IA Qn <9 Normal <20 [facility] Comment on above: Order Comment: Speci men Type: BLOOD SPECIMEN Ordering Facility: [facility] Address: [address] [place] [address] Result Comment: <20 SGU Negative 20-80 SGU Low Positive >80 SGU High Positive These results were obtained with the [employer] QUANTA Lite B2 GPI IgG LISSETTE. B2 GPI IgG values obtained with different manufacturers' assay methods may not be used interchangeably. The magnitude of the reported IgG levels cannot be correlated to an endpoint titer. Performed By: #### C ARDIG, BETA2M, BETA2G, 5076-5, CARDIM #### [facility] CLIA [id number] [address] [place] [address] OF [facility] BETA 2 GLYCOPROTEIN, IGMon 1 Beta 2 glycoprotein 1 IgM IA Qn <9 Normal <20 [facility] Comment on above: Order Comment: Speci efren Type: BLOOD SPECIMENOrdering Facility: [facility] Address: [address] [place] [address] Result Comment: <20 SMU Negative 20-80 SMU Low Positive >80 SMU High positive These results were obtained with the [employer] QUANTA Lite B2 GPI IgM LISSETTE. B2 GPI IgM values obtained with different manufacturers' assay methods may not be used interchangeably. The magnitude of the reported IgM levels cannot be correlated to an endpoint titer. Performed By: #### C ARDIG, BETA2M, BETA2G, 5076-5, CARDIM ####[facility] [id number] [place] [address] [place] C3 SerPl-mCncon 08-10-2022 Complement C3 [Mass/Vol] 130 mg/dL Normal 86-166 [facility] Comment on above: Order Comment: Jeffrey schwartz Type: BLOOD SPECIMEN Ordering Facility: [facility] Address: [address] [place] [address] Performed By: #### 4 498-2, 4485-9 #### [facility] CLIA [id number] [address] [place] [address] [place] C4 SerPl-mCncon 08-10-2022 Complement C4 [Mass/Vol] 28 mg/dL Normal 13-46 [facility] Comment on above: Order Comment: Jeffrey schwartz Type: BLOOD SPECIMEN Ordering Facility: [facility] Address: [address] [place] [address] Performed By: #### 4 498-2, 4485-9 #### [facility] CLIA [id number] [address] [place] [address] [place] CARDIOLIPIN IGG ABSon 2021 Cardiolipin IgG IA Qn (S) <9.0 Normal <15.0 [facility] Comment on above: Order Comment: Jeffrey schwartz Type: BLOOD SPECIMENOrdering Facility: [facility] Address: [address] [place] [address] Result Comment: <15 GPL Negative 15-20 GPL Indeterminate >20 GPL Positive The following results were obtained with the [employer] QUANTA Lite TIFFANIE IgG III LISSETTE. Cardiolipin IgG values obtained with the different manufacturers' assay methods may not be used interchangeably. The magnitude of the reported IgG levels cannot be correlated to an endpoint titer. Performed By: #### C ARDIG, BETA2M, BETA2G, 5076-5, ALLYSON ####[facility] [id number] [address] [place] CARDIOLIPIN IGM ABSon 2021 Cardiolipin IgM IA Qn (S) 9.1 MPL Normal <12.5 [facility] Comment on above: Order Comment: Speci men Type: BLOOD SPECIMENOrdering Facility: [facility] Address: [address] [place] [address] Result Comment: <12. 5 MPL Negative 12.5-20 [...] #### C ARDIG, BETA2M, BETA2G, 5076-5, ALLYSON ####[facility] [id number] [place] [address] [place] CBC W Auto Differential pane l (Bld)on 08-10-2022 Basophils (Bld) [#/Vol] 0.03 10*3/uL Normal <0.11 [facility] Comment on above: Order Comment: Speci men Type: BLOOD SPECIMEN Ordering Facility: [facility] Address: [address] [address] Performed By: #### 5 7021-8 #### [facility] CLIA [id number] [facility] [place] [address] [place] Basophils/100 WBC (Bld) 0.4 % Normal [facility] Comment on above: Order Comment: Speci men Type: BLOOD SPECIMEN Ordering Facility: [facility] Address: [address] Performed By: #### 5 7021-8 #### [facility] IA [id number] [address] [place] [address] [place] Differential cell count method Nom (Bld) Auto Normal [facility] Comment on above: Order Comment: Speci men Type: BLOOD SPECIMEN Ordering Facility: [facility] Address: [address] [place], [place] [address] Performed By: #### 5 7021-8 #### [facility] IA [id number] [address] [place] [address] [place] Eosinophils (Bld) [#/Vol] 0.13 10*3/uL Normal <0.46 [facility] Comment on above: Order Comment: Speci men Type: BLOOD SPECIMEN Ordering Facility: [facility] Address: [address] [place] [address] Performed By: #### 5 7021-8 #### [facility] IA [id number] [address] [place] [address] [place] Eosinophils/100 WBC (Bld) 1.6 % Normal [facility] Comment on above: Order Comment: Speci men Type: BLOOD SPECIMEN Ordering Facility: [facility] Address: [address] [place], [place] [address] Performed By: #### 5 7021-8 #### [facility] IA [id number] [address] [place] [address] [place] Erythrocyte distribution width (RBC) [Ratio] 12.4 % Normal 11.5-15.0 [facility] Comment on above: Order Comment: Speci men Type: BLOOD SPECIMEN Ordering Facility: [facility] Address: [address] [place], [place] [address] Performed By: #### 5 7021-8 #### [facility] IA [id number] [address] [place] [address] [place] Hematocrit (Bld) [Volume fraction] 41.6 % Normal 36.0-46.0 [facility] Comment on above: Order Comment: Speci men Type: BLOOD SPECIMEN Ordering Facility: [facility] Address: [address] [place], [place] [address] Performed By: #### 5 7021-8 #### [facility] CLIA [id number] [address] [place] [address] [place] Hemoglobin (Bld) [Mass/Vol] 13.4 g/dL Normal 11.5-15.5 [facility] Comment on above: Order Comment: Speci men Type: BLOOD SPECIMEN Ordering Facility: [facility] Address: [address] [place], [place] [address] Performed By: #### 5 7021-8 #### [facility] IA [id number] [address] [place] [address] [place] Immature granulocytes (Bld) [#/Vol] 10*3/uL Normal <0.10 [facility] Comment on above: Order Comment: Speci men Type: BLOOD SPECIMEN Ordering Facility: [facility] Address: [address] [place] [address] Performed By: #### 5 7021-8 #### [facility] IA [id number] [place] Immature granulocytes/100 WBC (Bld) 0.2 % Normal [facility] Comment on above: Order Comment: Speci men Type: BLOOD SPECIMEN Ordering Facility: [facility] Address: [address] [place], [place] [address] Performed By: #### 5 7021-8 #### [facility] CLIA [id number] [address] [place] [address] [place] Lymphocytes (Bld) [#/Vol] 2.36 10*3/uL Normal 1.00-4.00 [facility] Comment on above: Order Comment: Speci men Type: BLOOD SPECIMEN Ordering Facility: [facility] Address: [address] [place], [place] [address] Performed By: #### 5 7021-8 #### [facility] IA [id number] OF [facility] Lymphocytes/100 WBC (Bld) 28.3 % Normal [facility] Comment on above: Order Comment: Speci men Type: BLOOD SPECIMEN Ordering Facility: [facility] Address: [address] [place] [address] Performed By: #### 5 7021-8 #### [facility] IA [id number] [place] [address] [place] MCH (RBC) [Entitic mass] 30.0 pg Normal 26.0-34.0 [facility] Comment on above: Order Comment: Speci men Type: BLOOD SPECIMEN Ordering Facility: [facility] Address: [address] [place] [address] Performed By: #### 5 7021-8 #### [facility] IA [id number] [address] [place] [address] [place] MCHC (RBC) [Mass/Vol] 32.2 g/dL Normal 30.5-36.0 [facility] Comment on above: Order Comment: Speci men Type: BLOOD SPECIMEN Ordering Facility: [facility] Address: [address] [place] [address] Performed By: #### 5 7021-8 #### [facility] [id number] [address] [place] [address] [place] MCV (RBC) [Entitic vol] 93.1 fL Normal 80.0-100.0 [facility] Comment on above: Order Comment: Speci men Type: BLOOD SPECIMEN Ordering Facility: [facility] Address: [address] [place], [place] [address] Performed By: #### 5 7021-8 #### [facility] IA [id number] [place] [address] OF [place] Monocytes (Bld) [#/Vol] 0.62 10*3/uL Normal <0.87 [facility] Comment on above: Order Comment: Speci men Type: BLOOD SPECIMEN Ordering Facility: [facility] Address: [address] Performed By: #### 5 7021-8 #### [facility] CLIA [id number] [address] [place] [address] [place] Monocytes/100 WBC (Bld) 7.4 % Normal [facility] Comment on above: Order Comment: Speci men Type: BLOOD SPECIMEN Ordering Facility: [facility] Address: [address] [place], [place] [address] Performed By: #### 5 7021-8 #### [facility] CLIA [id number] [address] [place] [address] [place] Neutrophils (Bld) [#/Vol] 5.19 10*3/uL Normal 1.45-7.50 [facility] Comment on above: Order Comment: Speci men Type: BLOOD SPECIMEN Ordering Facility: [facility] Address: [address] [place], [place] [address] Performed By: #### 5 7021-8 #### [facility] CLIA [id number] [address] [place] [address] [place] Neutrophils/100 WBC (Bld) 62.1 % Normal [facility] Comment on above: Order Comment: Speci men Type: BLOOD SPECIMEN Ordering Facility: [facility] Address: [address] [place], [place] [address] Performed By: #### 5 7021-8 #### [facility] CLIA [id number] [address] [facility] [place] [address] [place] Nucleated RBC (Bld) [#/Vol] 10*3/uL Normal <0.01 [facility] Comment on above: Order Comment: Speci men Type: BLOOD SPECIMEN Ordering Facility: [facility] Address: [address] [place], [place] [address] Performed By: #### 5 7021-8 #### [facility] CLIA [id number] [address] [place] [address] [place] Nucleated RBC/100 WBC (Bld) [Ratio] 0.0 /100 WBC Normal [facility] Comment on above: Order Comment: Speci men Type: BLOOD SPECIMEN Ordering Facility: [facility] Address: [address] [place], [place] [address] Performed By: #### 5 7021-8 #### [facility] CLIA [id number] [address] [place] [address] [place] Platelet mean volume (Bld) [Entitic vol] 10.3 fL Normal 9.0-12.7 [facility] Comment on above: Order Comment: Speci men Type: BLOOD SPECIMEN Ordering Facility: [facility] Address: [address] [place], [place] [address] Performed By: #### 5 7021-8 #### [facility] IA [id number] [address] [place] [address] [place] Platelets (Bld) [#/Vol] 326 10*3/uL Normal 150-400 [facility] Comment on above: Order Comment: Speci men Type: BLOOD SPECIMEN Ordering Facility: [facility] Address: [address] [place], [place] [address] Performed By: #### 5 7021-8 #### [facility] IA [id number] [address] [place] [address] [place] RBC (Bld) [#/Vol] 4.47 10*6/uL Normal 3.90-5.20 [facility] Comment on above: Order Comment: Speci men Type: BLOOD SPECIMEN Ordering Facility: [facility] Address: [address] [place], [place] [address] Performed By: #### 5 7021-8 #### [facility] IA [id number] [address] [place] [address] [place] WBC (Bld) [#/Vol] 8.35 10*3/uL Normal 3.70-11.00 [facility] Comment on above: Order Comment: Speci men Type: BLOOD SPECIMEN Ordering Facility: [facility] Address: [address] [place] [address], [place] [address] Performed By: #### 5 7021-8 #### [facility] CLIA [id number] [address] [id number] [facility] CK SerPl-cCncon 08-10-2022 CK [Catalytic activity/Vol] 56 U/L Normal 42-196 [facility] Comment on above: Order Comment: Speci men Type: BLOOD SPECIMEN Ordering Facility: [facility] Address: [address] [place], [place] [address] Performed By: #### 2 157-6 #### [facility] CLIA [id number] [address] [place] [address] [facility] CNOVon 08-10-2022 CNOV Office Visit (RHEUAV ) DONTAE VIVEROS ([id number]) 1970 F Date Time Provider Department 08/10/22 [...] as follows: -Sep 2017: was evaluated by green building engineer Dr. Donald Ty (with edits for brevity [...] (+)fatigue HEENT: Positive for: Mouth sores (see HOH) Negative for: Trouble swallowing and Dry mouth [...] dryness Negativ (more content not included)... Normal [facility] Cardiolipin IgA Ser IA-aCnco n 08-10-2022 Cardiolipin IgA IA Qn (S) <9.0 Normal <12.0 [facility] Comment on above: Order Comment: Speci men Type: BLOOD SPECIMENOrdering Facility: [facility] Address: [address] [place] [address] Result Comment: <12 APL Negative 12-20 APL Indeterminate >20 APL Positive The following results were obtained with the [employer] QUANTA Lite TIFFANIE IgA III LISSETTE. Cardiolipin IgA values obtained with the different manufacturers' assay methods may not be used interchangeably. The magnitude of the reported IgA levels cannot be correlated to an endpoint titer. Performed By: #### C ARDIOGENESG, BETA2M, BETA2G, 5076-5, [facility] ####[facility] [id number] [place] [address] [place] LUPUS PANELon 08-10-2022 aPTT Coag (Bld) [Time] 30.3 s Normal 24.0-35.1 [facility] Comment on above: Order Comment: Speci men Type: BLOOD SPECIMEN Ordering Facility: [facility] Address: [address] [place] [address] Performed By: #### L UPPL #### [facility] CLIA [id number] [address] [place] [address] [place] aPTT W excess hexagonal phase phospholipid Coag (PPP) [Time] 46.5 seconds Normal 34.0-51.8 [facility] Comment on above: Order Comment: Speci men Type: BLOOD SPECIMEN Ordering Facility: [facility] Address: [address] [place], [place] [address] Performed By: #### L UPPL #### [facility] CLIA [id number] [address] [place] [address] [place] Delta dRVVT Coag (PPP) [Time diff] 1.3 delta seconds Normal <7.1 [facility] Comment on above: Order Comment: Speci men Type: BLOOD SPECIMEN Ordering Facility: [facility] Address: [address] [place], [place] [address] Performed By: #### L UPPL #### [facility] CLIA [id number] [address] [place] [address] [place] dRVVT Coag (PPP) [Time] 38.6 s Normal 32.0-45.7 [facility] Comment on above: Order Comment: Speci men Type: BLOOD SPECIMEN Ordering Facility: [facility] Address: [address] [place], [place] [address] Performed By: #### L UPPL #### [facility] CLIA [id number] [address] [place] [address] [place] dRVVT factor substitution immediately after 1:2 addition of normal plasma Coag (PPP) [Time] 37.4 seconds Normal 32.0-45.7 [facility] Comment on above: Order Comment: Speci men Type: BLOOD SPECIMEN Ordering Facility: [facility] Address: [address] [place] [address] Performed By: #### L UPPL #### [facility] CLIA [id number] [address] [place] [address] [place] dRVVT W excess hexagonal phase phospholipid actual/normal Coag (PPP) [Relative time] 45.1 seconds Normal 34.2-47.9 [facility] Comment on above: Order Comment: Speci men Type: BLOOD SPECIMEN Ordering Facility: [facility] Address: [address] [place] [address] Performed By: #### L UPPL #### [facility] CLIA [id number] [address] [place] [address] [place] dRVVT/dRVVT.excess phospholipid Coag (PPP) [Ratio] 1.06 Normal <1.32 [facility] Comment on above: Order Comment: Speci men Type: BLOOD SPECIMEN Ordering Facility: [facility] Address: [address] [place] [address] Performed By: #### L UPPL #### [facility] CLIA [id number] [address] [place] [address] OF [place] Lupus anticoagulant neutralization platelet Coag Ql (PPP) Negative Normal Negative [facility] Comment on above: Order Comment: Speci men Type: BLOOD SPECIMEN Ordering Facility: [facility] Address: [address] [place] [address] Performed By: #### L UPPL #### [facility] CLIA [id number] [address] [place] [address] [place] Thrombin time Coag (PPP) [Time] 16.8 seconds Normal <18.6 [facility] Comment on above: Order Comment: Speci men Type: BLOOD SPECIMEN Ordering Facility: [facility] Address: [address] [place] [address] Performed By: #### L UPPL #### [facility] CLIA [id number] [address] [facility] [id number] [address] [place] PT panel Coag (PPP)on 2021 INR Coag (PPP) [Relative time] 1.0 {INR} Normal 0.9-1.3 [facility] Comment on above: Order Comment: Jeffrey schwartz Type: BLOOD SPECIMEN Ordering Facility: [facility] Address: [address] [id number] Result Comment: Mere min K Antagonist (VKA) Therapeutic Range: INR 2 to 3 (Target INR of 2.5) Note: For patients treated with VKA drugs, such as warfarin, the [place] [employer] 2012 Guideline recommends [...] to 3.5 (target INR of 3). Mary GH, et al. Chest 2012, 141:7S-47S Eugenio RA, et al. [facility] 2017, 70: 252-289 Performed By: #### 3 4528-0, 48459-6 #### [facility] CLIA [id number] [facility] [place] [address] [place] PT Coag (PPP) [Time] 10.4 s Normal 9.7-13.0 [facility] Comment on above: Order Comment: Jeffrey schwartz Type: BLOOD SPECIMEN Ordering Facility: [facility] Address: [address] [place] [address] Performed By: #### 3 4528-0, 93228-7 #### [facility] CLIA [id number] [address] [place], [place] [address] [place] [address] [place] URINALYSIS, DIPSTICK ONLYon 08-10-2022 Bilirubin Ql (U) Negative Normal Negative [facility] Comment on above: Order Comment: Speci men Type: URINE SPECIMENOrdering Facility: [facility] Address: [address] [place] [address] Performed By: #### U A ####[facility] [id number] [place], [place] [id number] [place] [address] [place] Clarity (Unsp spec) Clear Normal Clear [facility] Comment on above: Order Comment: Speci men Type: URINE SPECIMENOrdering Facility: [facility] Address: [address] [place] [address] Performed By: #### U A ####[facility] [id number] [place] [address] [place] Color (U) Yellow Normal Yellow [facility] Comment on above: Order Comment: Speci men Type: URINE SPECIMENOrdering Facility: [facility] Address: [address] [place] [address] Performed By: #### U A ####[facility] [id number] [address] OF [place] Glucose Test strip (U) [Mass/Vol] Negative Normal Negative [facility] Comment on above: Order Comment: Speci men Type: URINE SPECIMENOrdering Facility: [facility] Address: [address] [place], [place] [address] Performed By: #### U A ####[facility] [id number] [place] [address] [place] Hemoglobin Ql (U) Negative Normal Negative [facility] Comment on above: Order Comment: Speci men Type: URINE SPECIMENOrdering Facility: [facility] Address: [address] [place] [address] Performed By: #### U A ####[facility] [id number] [facility] [address] Ketones Ql (U) Trace Abnormal Negative [facility] Comment on above: Order Comment: Speci men Type: URINE SPECIMENOrdering Facility: [facility] Address: [address] [place] [address] Performed By: #### U A ####[facility] [id number] [address] Leukocyte esterase Test strip Ql (U) Trace Abnormal Negative [facility] Comment on above: Order Comment: Speci men Type: URINE SPECIMENOrdering Facility: [facility] Address: [address] [place] [address] Performed By: #### U A ####[facility] [id number] [address] STATES [place] Nitrite Ql (U) Negative Normal Negative [facility] Comment on above: Order Comment: Speci men Type: URINE SPECIMENOrdering Facility: [facility] Address: [address] [place] [address] Performed By: #### U A ####[facility] [id number] [place] [address] [place] pH (U) 6.0 [pH] Normal 5.0-8.0 [facility] Comment on above: Order Comment: Speci men Type: URINE SPECIMENOrdering Facility: [facility] Address: [address] [place] [address] Performed By: #### U A ####[facility] [id number] [place] [address] [place] Protein (U) [Mass/Vol] Negative Normal Negative [facility] Comment on above: Order Comment: Speci men Type: URINE SPECIMENOrdering Facility: [facility] Address: [address] [place] [address] Performed By: #### U A ####[facility] [id number] [place] [address] [place] Specific gravity (U) [Rel density] 1.010 Normal 1.005-1.030 [facility] Comment on above: Order Comment: Speci men Type: URINE SPECIMENOrdering Facility: [facility] Address: [address] [phone] Performed By: #### U A ####[facility] [id number] [place] [address] [facility] Urobilinogen Ql (U) 0.2 EU/dL Normal 0.2-1.0 EU/dL [facility] Comment on above: Order Comment: Speci men Type: URINE SPECIMENOrdering Facility: [facility] Address: [address] [place] [address] Performed By: #### U A ####[facility] [id number] [place] [address] [facility] XR CHEST 2V FRONTAL/LATon XR CHEST 2V FRONTAL/LAT * * *Final Report* * * DATE OF EXAM: Aug 10 [...] thoracic spine. IMPRESSION: No acute radiographic abnormality. Auto Transmission Specialist: PSCB Transcribe Date/Time: Aug 10 2022 3:53P Dictated by : NISHI MOORE MD This examination was interpreted and the report reviewed and electronically signed by: NISHI MOORE MD on Aug 10 2022 3:53PM EST [id number] Normal [facility] aPTT PPPon 10-27-2022 aPTT Coag (PPP) [Time] 27.5 s Normal 23.0-32.4 [facility] Comment on above: Order Comment: Speci men Type: BLOOD SPECIMEN Ordering Facility[facility] Address: [address] [place] [address] Performed By: #### 3 4528-0, 09739-1 #### [facility] CLIA [id number] [address] [place] [address] [place] IMMUNOGLOBULINS IGA/IGM/IGG/ IGE QUANTITAon 08-09-2022 Immunoglobulin A, Qn, Serum 113 mg/dL Normal 87-352 [facility] Comment on above: Result Comment: Perf ormed at: CB Performed By: #### I MMUNGF #### [facility] [address] [address] [address] Heather Day Immunoglobulin E, Total 5 IU/mL Critically low 6-495 [facility] Comment on above: Result Comment: Perf ormed at: BN Performed By: #### I MMUNGF #### [facility] [address] [address] [address] Heather Day Immunoglobulin G, Qn, Serum 798 mg/dL Normal 586-1602 [facility] Comment on above: Result Comment: Perf ormed at: CB Performed By: #### I MMUNGF #### [facility] [address] [address] [address] Heather Day Immunoglobulin M, Qn, Serum 67 mg/dL Normal 26-217 [facility] Comment on above: Result Comment: Perf ormed at: CB Performed By: #### I MMUNGF #### [facility] [address] [address] [address] Heather Day DOROTHY by IFAon 08-06-2022 Antinuclear Antibodies, IFA Positive Abnormal [facility] Comment on above: Result Comment: Nega tive <1:80 Borderline 1:80 Positive >1:80 Performed By: #### S [place] #### [facility] [address] [address] [address] Heather Day Centriole Pattern Normal [facility] Comment on above: Performed By: #### S [place] #### [facility] [address] [address] [address] Heather Day Centromere Pattern Normal [facility] Comment on above: Performed By: #### S [place] #### [facility] [address] [address] [address] Heather Day Homogeneous Pattern 1:320 Critically high The [facility] Comment on above: Result Comment: ICAP nomenclature: AC-1 Performed By: #### S [place] #### [facility] [address] [address] [address] Heather Day Midbody Pattern Normal [facility] Comment on above: Performed By: #### S [place] #### [facility] [address] [address] [address] Heather Day Note: Comment Normal [facility] Comment on above: Result Comment: For more information about Hep-2 cell patterns use [email or web address].org, the official [...] titers Nucleosomes, Histones Drug-induced SLE Speckled Sm, TALEND ETL DEVELOPER, SCL-70, SLE,MCTD,PSS (diffuse form), SS-A/SS-B Sjogrens Nucleolar SCL-70, PM-1/SCL High titers Scleroderma, PM/DM Centromere Centromere PSS (limited form) w/Crest syndrome variable Nuclear Dot [id number] Primary Biliary Cirrhosis Nuclear GP210, Primary Biliary Cirrhosis Membrane tenzin A,B,C Performed By: #### S [place] #### [facility] [address] [address] [address] Heather Day Nuclear Dot Pattern Normal [facility] Comment on above: Performed By: #### S [place] #### [facility] [address] [address] [address] Heather Day Nuclear Membrane Pattern Normal [facility] Comment on above: Performed By: #### S [place] #### [facility] [address] [address] [address] Heather Day Nucleolar Pattern Normal [facility] Comment on above: Performed By: #### S [place] #### [facility] [address] [place] [address] Dr. Heather Day PCNA Pattern Normal [facility] Comment on above: Performed By: #### S [place] #### [facility] [address] [place] [address] Dr. Heather Day Speckled Pattern Normal [facility] Comment on above: Performed By: #### S [place] #### [facility] [address] [place] [address] Dr. Heather Day Spindle Apparatus Pattern Normal [facility] Comment on above: Performed By: #### S [place] #### [facility] [address] [place] [address] Dr. Heather Day DOROTHY DIRECTon 08-04-2022 DOROTHY Direct Negative Normal Negative [facility] Comment on above: Performed By: #### A NAD #### [facility] [address] [place] [address] Dr. Heather Day ANTISTREPTOLYSIN O AB (ASO)o n 08-04-2022 Antistreptolysin O Ab 49.4 IU/mL Normal 0.0-200.0 [facility] Comment on above: Performed By: #### A SOAB #### [facility] [address] [place] [address] Dr. Heather Day C3 and C4 COMPLEMENTon 08-04 Complement C3, Serum 112 mg/dL Normal 82-167 [facility] Comment on above: Performed By: #### S [place] #### [facility] [address] [place] [address] Dr. Heather Day Complement C4, Serum 22 mg/dL Normal 12-38 [facility] Comment on above: Performed By: #### S [place] #### [facility] [address] [place] [address] Dr. Heather Day SLE PROFILE Aon 08-04-2022 Anti-DNA (DS) Ab Qn <1 Normal 0-9 [facility] Comment on above: Result Comment: Nega tive <5 Equivocal 5 - 9 Positive >9 Performed By: #### S [place] #### [facility] [address] [address] [address] Heather Day Antichromatin Antibodies <0.2 Normal 0.0-0.9 [facility] Comment on above: Performed By: #### S [place] #### [facility] [address] [place] [address] Dr. Heather Day RA Latex Turbid. <10.0 Normal <14.0 [facility] Comment on above: Performed By: #### S [place] #### [facility] [address] [address] [address] Heather Day TALEND ETL DEVELOPER Antibodies 0.7 AI Normal 0.0-0.9 [facility] Comment on above: Performed By: #### S [place] #### [facility] [address] [place] [address] Dr. Heather Day Sjogren'salvatore Anti-SS-A <0.2 Normal 0.0-0.9 [facility] Comment on above: Performed By: #### S [place] #### [facility] [address] [place] [address] Dr. Heather Day Sjogrbladimir'salvatore Anti-SS-B <0.2 Normal 0.0-0.9 [facility] Comment on above: Performed By: #### S [place] #### [facility] [address] [place] [address] Dr. Heather Day Perry Antibodies <0.2 Normal 0.0-0.9 [facility] Comment on above: Performed By: #### S [place] #### [facility] [address] [place] [address] Dr. Heather Day CBC AUTO DIFFon 08-02-2022 BASO # 0.0 103/ul Normal 0.0-0.1 [facility] Comment on above: Performed By: #### S EDR #### [facility] [address] [place] [address] Dr. Heather Day Basophils/100 WBC (Bld) 0.6 % Normal 0.2-2.0 [facility] Comment on above: Performed By: #### S EDR #### [facility] [address] [place] [address] Dr. Heather Day EO # 0.2 103/ul Normal 0.0-0.7 The [facility] Comment on above: Performed By: #### S EDR #### [facility] [address] [place] [address] Dr. Heather Day Eosinophils/100 WBC (Bld) 3.6 % Normal 0.9-7.0 [facility] Comment on above: Performed By: #### S EDR #### [facility] [address] [place] [address] Dr. Heather Day Erythrocyte distribution width (RBC) [Ratio] 12.4 % Normal 11.0-15.0 [facility] Comment on above: Performed By: #### S EDR #### [facility] [address] [place] [address] Dr. Heather Day Hematocrit (Bld) [Volume fraction] 36.7 % Normal 36.0-48.0 [facility] Comment on above: Performed By: #### S EDR #### [facility] [address] [place] [address] Dr. Heather Day Hemoglobin (Bld) [Mass/Vol] 11.8 g/dL Critically low 12.0-16.0 [facility] Comment on above: Performed By: #### S EDR #### [facility] [address] [place] [address] Dr. Heather Day IG # 0.01 10e3/ul Normal 0.00-0.03 The [facility] Comment on above: Performed By: #### S EDR #### [facility] [address] [place] [address] Dr. Heather Day IG % 0.2 % Normal 0.0-0.5 The [facility] Comment on above: Performed By: #### S EDR #### [facility] [address] [place] [address] Dr. Heather Day LYMPH # 2.4 103/ul Normal 1.2-3.8 The [facility] Comment on above: Performed By: #### S EDR #### [facility] [address] [address] [address] Heather Day Lymphocytes/100 WBC (Bld) 38.1 % Normal 20.5-60.0 The [facility] Comment on above: Performed By: #### S EDR #### [facility] [address] [address] [address] Heather Day MANUAL DIFF REQ NO Normal [facility] Comment on above: Performed By: #### S EDR #### [facility] [address] [address] [address] Heather Day MCH (RBC) [Entitic mass] 29.6 pg Normal 26.7-34.0 The [facility] Comment on above: Performed By: #### S EDR #### [facility] [address] [place] [address] Dr. Heather Day MCHC (RBC) [Mass/Vol] 32.2 g/dL Normal 29.9-35.2 The [facility] Comment on above: Performed By: #### S EDR #### [facility] [address] [place] [address] Dr. Heather Day MCV (RBC) [Entitic vol] 92.2 fL Normal 81.0-99.0 [facility] Comment on above: Performed By: #### S EDR #### [facility] [address] [place] [address] Dr. Heather Day MONO # 0.5 103/ul Normal 0.3-0.8 The [facility] Comment on above: Performed By: #### S EDR #### [facility] [address] [place] [address] Dr. Heather Day Monocytes/100 WBC (Bld) 7.7 % Normal 1.7-12.0 The [facility] Comment on above: Performed By: #### S EDR #### [facility] [address] [place] [address] Dr. Heather Day NEUT # 3.2 103/ul Normal 1.4-6.5 The [facility] Comment on above: Performed By: #### S EDR #### [facility] [address] [address] [address] Heather Day Neutrophils/100 WBC (Bld) 49.8 % Normal 43.0-75.0 The [facility] Comment on above: Performed By: #### S EDR #### [facility] [address] [address] [address] Heather Day Platelet mean volume (Bld) [Entitic vol] 10.1 fL Normal 9.5-13.5 The [facility] Comment on above: Performed By: #### S EDR #### [facility] [address] [address] [address] Heather Day PLT 290 103/ul Normal 150-450 The [facility] Comment on above: Performed By: #### S EDR #### [facility] [address] [address] [address] Heather Day RBC 3.98 106/ul Critically low 4.20-5.40 [facility] Comment on above: Performed By: #### S EDR #### [facility] [address] [address] [address] Heather Day WBC 6.3 103/ul Normal 4.0-11.0 The [facility] Comment on above: Performed By: #### S EDR #### [facility] [address] [place] [address] Dr. Heather Day CRPon 08-02-2022 CRP [Mass/Vol] mg/L Normal <=1.0 [facility] Comment on above: Performed By: #### S EDR #### [facility] [address] [address] [address] Heather Day FREE THYROXINE INDEX T7on FTI 2.45 Normal 1.30-4.50 The [facility] Comment on above: Performed By: #### S EDR #### [facility] [address] [place] [address] Dr. Heather Day T3U 35.0 % Normal 30.0-39.0 The [facility] Comment on above: Performed By: #### S EDR #### [facility] [address] [address] [address] Heather Day T4 [Mass/Vol] 7.00 ug/dL Normal 4.80-13.90 [facility] Comment on above: Performed By: #### S EDR #### [facility] [address] [place] [address] Dr. Heather Day IRONon 08-02-2022 Iron [Mass/Vol] 49.0 ug/dL Critically low 50.0-170.0 [facility] Comment on above: Performed By: #### S EDR #### [facility] [address] [place] [address] Dr. Heather Day [facility] SED RATE 4 mm/hr Normal <=30 [facility] Comment on above: Performed By: #### S EDR #### [facility] [address] [place] [address] Dr. Heather Day TSHon 08-02-2022 TSH 2.616 uIU/mL Normal 0.358-3.740 [facility] Comment on above: Performed By: #### S EDR #### [facility] [address] [place] [address] Dr. Heather Day URIC ACID SERUMon 08-02-2022 Urate [Mass/Vol] 2.1 mg/dL Critically low 2.6-6.0 [facility] Comment on above: Performed By: #### S EDR #### [facility] [address] [place] [address] Dr. Heather Day T4, T3U, FTI LABCORPon 07-08 Free Thyroxine Index 2.6 Normal 1.2-4.9 [facility] Comment on above: Performed By: #### S [place] #### [facility] [address] [place] [address] Dr. Heather Day T3 Uptake 32 % Normal 24-39 [facility] Comment on above: Performed By: #### S [place] #### [facility] [address] [place] [address] Dr. Heather Day T4 [Mass/Vol] 8.0 ug/dL Normal 4.5-12.0 [facility] Comment on above: Performed By: #### S [place] #### [facility] [address] [place] [address] Dr. Heather Day CBC AUTO DIFFon 07-07-2022 BASO # 0.0 103/ul Normal 0.0-0.1 The [facility] Comment on above: Performed By: #### S [place] #### [facility] [address] [place] [address] Dr. Heather Day Basophils/100 WBC (Bld) 0.8 % Normal 0.2-2.0 The [facility] Comment on above: Performed By: #### S [place] #### [facility] [address] [place] [address] Dr. Heather Day EO # 0.2 103/ul Normal 0.0-0.7 The [facility] Comment on above: Performed By: #### S [place] #### [facility] [address] [place] [address] Dr. Heather Day Eosinophils/100 WBC (Bld) 3.7 % Normal 0.9-7.0 [facility] Comment on above: Performed By: #### S [place] #### [facility] [address] [place] [address] Dr. Heather Day Erythrocyte distribution width (RBC) [Ratio] 12.7 % Normal 11.0-15.0 [facility] Comment on above: Performed By: #### S [place] #### [facility] [address] [place] [address] Dr. Heather Day Hematocrit (Bld) [Volume fraction] 39.9 % Normal 36.0-48.0 The [facility] Comment on above: Performed By: #### S [place] #### [facility] [address] [place] [address] Dr. Heather Day Hemoglobin (Bld) [Mass/Vol] 13.1 g/dL Normal 12.0-16.0 The [facility] Comment on above: Performed By: #### S [place] #### [facility] [address] [place] [address] Dr. Heather Day IG # 0.01 10e3/ul Normal 0.00-0.03 [facility] [facility] Comment on above: Performed By: #### S [place] #### [facility] [address] [place] [address] Dr. Heather Day IG % 0.2 % Normal 0.0-0.5 [facility] Comment on above: Performed By: #### S [place] #### [facility] [address] [place] [address] Dr. Heather Day LYMPH # 1.5 103/ul Normal 1.2-3.8 [facility] Comment on above: Performed By: #### S [place] #### [facility] [address] [place] [address] Dr. Heather Day Lymphocytes/100 WBC (Bld) 28.6 % Normal 20.5-60.0 [facility] Comment on above: Performed By: #### S [place] #### [facility] [address] [place] [address] Dr. Heather Day MANUAL DIFF REQ NO Normal [facility] Comment on above: Performed By: #### S [place] #### [facility] [address] [place] [address] Dr. Heather Day MCH (RBC) [Entitic mass] 29.8 pg Normal 26.7-34.0 [facility] Comment on above: Performed By: #### S [place] #### [facility] [address] [place] [address] Dr. Heather Day MCHC (RBC) [Mass/Vol] 32.8 g/dL Normal 29.9-35.2 [facility] Comment on above: Performed By: #### [place] #### [facility] [address] [place] [address] Dr. Heather Day MCV (RBC) [Entitic vol] 90.7 fL Normal 81.0-99.0 [facility] Comment on above: Performed By: #### S [place] #### [facility] [address] [place] [address] Dr. Heather Day MONO # 0.5 103/ul Normal 0.3-0.8 [facility] Comment on above: Performed By: #### S [place] #### [facility] [address] [place] [address] Dr. Heather Day Monocytes/100 WBC (Bld) 10.4 % Normal 1.7-12.0 [facility] Comment on above: Performed By: #### S [place] #### [facility] [address] [place] [address] Dr. Heather Day NEUT # 2.9 103/ul Normal 1.4-6.5 [facility] Comment on above: Performed By: #### S [place] #### [facility] [address] [place] [address] Dr. Heather Day Neutrophils/100 WBC (Bld) 56.3 % Normal 43.0-75.0 [facility] Comment on above: Performed By: #### S [place] #### [facility] [address] [place] [address] Dr. Heather Day Platelet mean volume (Bld) [Entitic vol] 9.7 fL Normal 9.5-13.5 [facility] Comment on above: Performed By: #### S [place] #### [facility] [address] [place] [address] Dr. Heather Day PLT 301 103/ul Normal 150-450 [facility] Comment on above: Performed By: #### [place] #### [facility] [address] [place] [address] Dr. Heather Day RBC 4.40 106/ul Normal 4.20-5.40 [facility] Comment on above: Performed By: #### S [place] #### [facility] [address] [place] [address] Dr. Heather Day WBC 5.2 103/ul Normal 4.0-11.0 [facility] Comment on above: Performed By: #### S [place] #### [facility] [address] [place] [address] Dr. Heather Day GLYCOHEMOGLOBIN A1Con 2021 ADA RECOMMENDATION SEE BELOW Normal [facility] Comment on above: Result Comment: ADA RECOMMENDED LIMIT 4.0 - 6.0 ADA THERAPEUTIC TARGET < 7.0 ACTION SUGGESTED > 7.0 Performed By: #### S EDR #### [facility] [address] [place] [address] Dr. Heather Day Glucose [Mass/Vol] 114 mg/dL Normal [facility] Comment on above: Performed By: #### S EDR #### [facility] [address] [place] [address] Dr. Heather Day HbA1c (Bld) [Mass fraction] 5.6 % Normal 4.5-6.2 [facility] Comment on above: Performed By: #### S EDR #### [facility] [address] [place] [address] Dr. Heather Day IRONon 07-07-2022 Iron [Mass/Vol] 124.0 ug/dL Normal 50.0-170.0 [facility] Comment on above: Performed By: #### S EDR #### [facility] [address] [place] [address] Dr. Heather Day PROF 14(COMP METB)on 022 Albumin [Mass/Vol] 4.4 g/dL Normal 3.4-5.0 [facility] Comment on above: Performed By: #### T SH, CMP #### [facility] [address] [place] [address] Dr. Heather Day Albumin/Globulin [Mass ratio] 1.4 {ratio} Normal [facility] Comment on above: Performed By: #### T SH, CMP #### [facility] [address] [place] [address] Dr. Heather Day ALP [Catalytic activity/Vol] 58 U/L Normal 46-116 [facility] Comment on above: Performed By: #### T SH, CMP #### [facility] [address] [place] [address] Dr. Heather Day ALT [Catalytic activity/Vol] 28 U/L Normal 14-59 [facility] Comment on above: Performed By: #### T SH, CMP #### [facility] [address] [address] [address] Heather Day Anion gap [Moles/Vol] 10.6 mmol/L Normal [facility] Comment on above: Performed By: #### T SH, CMP #### [facility] [address] [address] [address] Heather Day AST [Catalytic activity/Vol] 19 U/L Normal 15-37 [facility] Comment on above: Performed By: #### T SH, CMP #### [facility] [address] [address] [address] Heather Day Bilirubin [Mass/Vol] 0.6 mg/dL Normal 0.2-1.0 [facility] Comment on above: Performed By: #### T SH, CMP #### [facility] [address] [place] [address] Dr. Heather Day Calcium [Mass/Vol] 9.8 mg/dL Normal 8.5-10.1 [facility] Comment on above: Performed By: #### T SH, CMP #### [facility] [address] [address] [address] Heather Day Chloride [Moles/Vol] 103 mmol/L Normal 98-107 [facility] Comment on above: Performed By: #### T SH, CMP #### [facility] [address] [place] [address] Dr. Heather Day CO2 [Moles/Vol] 29.1 mmol/L Normal 21.0-32.0 [facility] Comment on above: Performed By: #### T SH, CMP #### [facility] [address] [place] [address] Dr. Heather Day Creatinine [Mass/Vol] 0.72 mg/dL Normal 0.55-1.02 [facility] Comment on above: Performed By: #### T SH, CMP #### [facility] [address] [place] [address] Dr. Heather Day EGFR-AF CYMRO >60 Normal >=60 [facility] Comment on above: Performed By: #### T SH, CMP #### [facility] [address] [address] [address] Heather Day EGFR-NON AF CYMRO >60 Normal >=60 [facility] Comment on above: Performed By: #### T SH, CMP #### [facility] [address] [address] [address] Heather Day Globulin (S) [Mass/Vol] 3.2 g/dL Normal [facility] Comment on above: Performed By: #### T SH, CMP #### [facility] [address] [address] [address] Heather Day Glucose [Mass/Vol] 100 mg/dL Normal 74-106 [facility] Comment on above: Performed By: #### T SH, CMP #### [facility] [address] [place] [address] Dr. Heather Day Potassium [Moles/Vol] 4.7 mmol/L Normal 3.5-5.1 [facility] Comment on above: Performed By: #### T SH, CMP #### [facility] [address] [place] [address] Dr. Heather Day Protein [Mass/Vol] 7.6 g/dL Normal 6.4-8.2 [facility] Comment on above: Performed By: #### T SH, CMP #### [facility] [address] [place] [address] Dr. Heather Day Sodium [Moles/Vol] 138 mmol/L Normal 136-145 [facility] Comment on above: Performed By: #### T SH, CMP #### [facility] [address] [place] [address] Dr. Heather Day Urea nitrogen [Mass/Vol] 17.0 mg/dL Normal 7.0-18.0 [facility] Comment on above: Performed By: #### T SH, CMP #### [facility] [address] [place] [address] Dr. Heather Day Urea nitrogen/Creatinine [Mass ratio] 23.6 mg/mg Normal [facility] Comment on above: Performed By: #### T SH, CMP #### [facility] [address] [place] [address] Dr. Heather Day TSHon 07-07-2022 TSH 2.099 uIU/mL Normal 0.358-3.740 [facility] Comment on above: Performed By: #### S [place] #### [facility] [address] [place] [address] Dr. Heather Day CBC AUTO DIFFon 12-16-2021 BASO # 0.0 103/ul Normal 0.0-0.1 [facility] Comment on above: Performed By: #### S EDR #### [facility] [address] [place] [address] Dr. Heather Day Basophils/100 WBC (Bld) 0.7 % Normal 0.2-2.0 [facility] Comment on above: Performed By: #### S EDR #### [facility] [address] [place] [address] Dr. Heather Day EO # 0.2 103/ul Normal 0.0-0.7 [facility] Comment on above: Performed By: #### S EDR #### [facility] [address] [place] [address] Dr. Heather Day Eosinophils/100 WBC (Bld) 5.1 % Normal 0.9-7.0 [facility] Comment on above: Performed By: #### S EDR #### [facility] [address] [place] [address] Dr. Heather Day Erythrocyte distribution width (RBC) [Ratio] 12.2 % Normal 11.0-15.0 [facility] Comment on above: Performed By: #### S EDR #### [facility] [address] [place] [address] Dr. Heather Day Hematocrit (Bld) [Volume fraction] 40.5 % Normal 36.0-48.0 [facility] Comment on above: Performed By: #### S EDR #### [facility] [address] [place] [address] Dr. Heather Day Hemoglobin (Bld) [Mass/Vol] 13.1 g/dL Normal 12.0-16.0 [facility] Comment on above: Performed By: #### S EDR #### [facility] [address] [place] [address] Dr. Heather Day IG # 0.01 10e3/ul Normal 0.00-0.03 [facility] Comment on above: Performed By: #### S EDR #### [facility] [address] [place] [address] Dr. Heather Day IG % 0.2 % Normal 0.0-0.5 [facility] Comment on above: Performed By: #### S EDR #### [facility] [address] [place] [address] Dr. Heather Day LYMPH # 1.5 103/ul Normal 1.2-3.8 [facility] Comment on above: Performed By: #### S EDR #### [facility] [address] [place] [address] Dr. Heather Day Lymphocytes/100 WBC (Bld) 32.7 % Normal 20.5-60.0 [facility] Comment on above: Performed By: #### S EDR #### [facility] [address] [place] [address] Dr. Heather Day MANUAL DIFF REQ NO Normal [facility] Comment on above: Performed By: #### S EDR #### [facility] [address] [place] [address] Dr. Heather Day MCH (RBC) [Entitic mass] 29.8 pg Normal 26.7-34.0 [facility] Comment on above: Performed By: #### S EDR #### [facility] [address] [place] [address] Dr. Heather Day MCHC (RBC) [Mass/Vol] 32.3 g/dL Normal 29.9-35.2 [facility] Comment on above: Performed By: #### S EDR #### [facility] [address] [place] [address] Dr. Heather Day MCV (RBC) [Entitic vol] 92.0 fL Normal 81.0-99.0 [facility] Comment on above: Performed By: #### S EDR #### [facility] [address] [place] [address] Dr. Heather Day MONO # 0.4 103/ul Normal 0.3-0.8 [facility] Comment on above: Performed By: #### S EDR #### [facility] [address] [place] [address] Dr. Heather Day Monocytes/100 WBC (Bld) 9.5 % Normal 1.7-12.0 [facility] Comment on above: Performed By: #### S EDR #### [facility] [address] [place] [address] Dr. Heather Day NEUT # 2.4 103/ul Normal 1.4-6.5 [facility] Comment on above: Performed By: #### S EDR #### [facility] [address] [place] [address] Dr. Heather Day Neutrophils/100 WBC (Bld) 51.8 % Normal 43.0-75.0 [facility] Comment on above: Performed By: #### S EDR #### [facility] [address] [place] [address] Dr. Heather Day Platelet mean volume (Bld) [Entitic vol] 10.1 fL Normal 9.5-13.5 [facility] Comment on above: Performed By: #### S EDR #### [facility] [address] [place] [address] Dr. Heather Day PLT 260 103/ul Normal 150-450 [facility] Comment on above: Performed By: #### S EDR #### [facility] [address] [place] [address] Dr. Heather Day RBC 4.40 106/ul Normal 4.20-5.40 [facility] Comment on above: Performed By: #### S EDR #### [facility] [address] [place] [address] Dr. Heather Day WBC 4.6 103/ul Normal 4.0-11.0 [facility] Comment on above: Performed By: #### S EDR #### [facility] [address] [address] [address] Heather Day FREE THYROXINE INDEX T7on FTI 2.63 Normal [facility] Comment on above: Performed By: #### S [place] #### [facility] [address] [address] [address] Heather Day T3U 35.0 % Normal 23.5-40.5 [facility] Comment on above: Performed By: #### S [place] #### [facility] [address] [address] [address] Heather Day T4 [Mass/Vol] 7.50 ug/dL Normal 5.53-11.00 [facility] Comment on above: Performed By: #### S [place] #### [facility] [address] [address] [address] Heather Day GLYCOHEMOGLOBIN A1Con 2021 ADA RECOMMENDATION ADA THERAPEUTIC TARG ET 6.0 - 7.0 ACTION SUGGESTED > 7.0 Normal [facility] Comment on above: Performed By: #### [place] #### [facility] [address] [address] [address] Heather Day Glucose [Mass/Vol] 120 mg/dL Normal [facility] Comment on above: Performed By: #### S [place] #### [facility] [address] [address] [address] Heather Day HbA1c (Bld) [Mass fraction] 5.8 % Normal <=6.0 [facility] Comment on above: Performed By: #### [place] #### [facility] [address] [address] [address] Heather Day IRONon 12-16-2021 Iron [Mass/Vol] 133.0 ug/dL Normal 37.0-170.0 [facility] Comment on above: Performed By: #### I KEREN #### [facility] [address] [address] [address] Heather Day LIPID PROFILEon 03-04-2022 CHOL-HDL RATIO NORM SEE BELOW Normal [facility] Comment on above: Result Comment: 3.3 - 4.4 LOW RISK 4.4 - 7.1 AVERAGE RISK 7.1 - 11.0 MODERATE RISK >11.0 HIGH RISK Performed By: #### S [place] #### [facility] [address] [address] [address] Heather Day Cholesterol [Mass/Vol] 193 mg/dL Normal <=200 [facility] Comment on above: Performed By: #### S [place] #### [facility] [address] [address] [address] Heather Day Cholesterol in HDL [Mass/Vol] 77 mg/dL Normal [facility] Comment on above: Performed By: #### S [place] #### [facility] [address] [address] [address] Heather Day Cholesterol in LDL [Mass/Vol] 104.8 mg/dL Normal [facility] Comment on above: Performed By: #### S [place] #### [facility] [address] [address] [address] Heather Day Cholesterol.total/Cho lesterol in HDL [Mass ratio] 2.5 {ratio} Normal [facility] Comment on above: Performed By: #### [place] #### [facility] [address] [address] [address] Heather Day HDL NORMAL > or = 60 mg/dl - LO W CARDIOVASCULAR RISK <40 mg/dl - HIGH CARDIOVASCULAR RISK Normal [facility] Comment on above: Performed By: #### S [place] #### [facility] [address] [address] [address] Heather Day LDL CALC NORMAL SEE BELOW Normal [facility] Comment on above: Result Comment: <100 mg/dl OPTIMAL 100 - 129 mg/dl NEAR OR ABOVE OPTIMAL 130 - 159 mg/dl BORDERLINE HIGH 160 - 189 mg/dl HIGH >190 mg/dl VERY HIGH Performed By: #### S [place] #### [facility] [address] [address] [address] Heather Day Triglyceride [Mass/Vol] 56 mg/dL Normal <=150 [facility] Comment on above: Performed By: #### S [place] #### [facility] [address] [address] [address] Heather Day VLDL CALC 11.2 mg/dL Normal [facility] Comment on above: Performed By: #### S [place] #### [facility] [address] [address] [address] Heather Day PROF 14(COMP METB)on 022 Albumin [Mass/Vol] 4.2 g/dL Normal 3.5-5.0 [facility] Comment on above: Performed By: #### S [place] #### [facility] [address] [address] [address] Heather Day Albumin/Globulin [Mass ratio] 1.2 {ratio} Normal [facility] Comment on above: Performed By: #### S [place] #### [facility] [address] [place] [address] Dr. Heather Day ALP [Catalytic activity/Vol] 60 U/L Normal 38-126 [facility] Comment on above: Performed By: #### S [place] #### [facility] [address] [address] [address] Heather Day ALT [Catalytic activity/Vol] 29 U/L Normal 9-52 [facility] Comment on above: Performed By: #### S [place] #### [facility] [address] [address] [address] Heather Day Anion gap [Moles/Vol] 11.7 mmol/L Normal [facility] Comment on above: Performed By: #### S [place] #### [facility] [address] [address] [address] Heather Day AST [Catalytic activity/Vol] 22 U/L Normal 14-36 [facility] Comment on above: Performed By: #### S [place] #### [facility] [address] [address] [address] Heather Day Bilirubin [Mass/Vol] 0.5 mg/dL Normal 0.2-1.3 [facility] Comment on above: Performed By: #### S [place] #### [facility] [address] [address] [address] Heather Day Calcium [Mass/Vol] 9.2 mg/dL Normal 8.4-10.2 [facility] Comment on above: Performed By: #### S [place] #### [facility] [address] [address] [address] Heather Day Chloride [Moles/Vol] 104 mmol/L Normal 98-107 [facility] Comment on above: Performed By: #### S [place] #### [facility] [address] [address] [address] Heather Day CO2 [Moles/Vol] 30.6 mmol/L Critically high 22.0-30.0 [facility] Comment on above: Performed By: #### S [place] #### [facility] [address] [place] [address] Dr. Heather Day Creatinine [Mass/Vol] 0.65 mg/dL Normal 0.52-1.04 [facility] Comment on above: Performed By: #### S [place] #### [facility] [address] [address] [address] Heather Day EGFR-AF CYMRO >60 Normal >=60 [facility] Comment on above: Performed By: #### S [place] #### [facility] [address] [address] [address] Heather Day EGFR-NON AF CYMRO >60 Normal >=60 [facility] Comment on above: Performed By: #### S [place] #### [facility] [address] [address] [address] Heather Day Globulin (S) [Mass/Vol] 3.4 g/dL Normal [facility] Comment on above: Performed By: #### S [place] #### [facility] [address] [place] [address] Dr. Heather Day Glucose [Mass/Vol] 91 mg/dL Normal 74-106 [facility] Comment on above: Performed By: #### S [place] #### [facility] [address] [address] [address] Heather Day Potassium [Moles/Vol] 4.3 mmol/L Normal 3.4-5.0 [facility] Comment on above: Performed By: #### S [place] #### [facility] [address] [place] [address] Dr. Heather Day Protein [Mass/Vol] 7.6 g/dL Normal 6.1-8.2 [facility] Comment on above: Performed By: #### S [place] #### [facility] [address] [address] [address] Heather Day Sodium [Moles/Vol] 142 mmol/L Normal 137-145 [facility] Comment on above: Performed By: #### S [place] #### [facility] [address] [place] [address] Dr. Heather Day Urea nitrogen [Mass/Vol] 22.0 mg/dL Critically high 7.0-17.0 [facility] Comment on above: Performed By: #### S [place] #### [facility] [address] [address] [address] Heather Day Urea nitrogen/Creatinine [Mass ratio] 33.8 mg/mg Normal [facility] Comment on above: Performed By: #### S [place] #### [facility] [address] [address] [address] Heather Day TSHon 12-16-2021 TSH 2.806 uIU/mL Normal 0.470-4.680 [facility] Comment on above: Performed By: #### S [place] #### [facility] [address] [place] [address] Dr. Heather Day TSH RANGE SEE BELOW Normal [facility] Comment on above: Result Comment: <0.3 4 UIU/ml HYPERTHYROID 0.34-5.60 UIU/ml EUTHYROID >5.60 UIU/ml HYPOTHYROID Performed By: #### S [place] #### [facility] [address] [place] [address] Dr. Heather Day Covid-19 PCR (CVDTB)on 08-15 SARS-CoV-2 (COVID-19) RNA MEGAN+probe Ql (Unsp spec) Not detected Normal NOT DETECTED [facility] Comment on above: Result Comment: This test is not yet approved or cleared by the [place] FDA. When there are no FDA-approved or cleared tests available, and other criteria are met, FDA can make tests available under an emergency access mechanism called an Emergency Use Authorization (EUA). The EUA for this test is supported by the Senior C Software Engineer of Health and Human Service's (HHS's) declaration [...] consistent with SARS-CoV-2. Performed By: #### [facility] #### [facility] [address] [address] [address] Heather Day Encounters Encounter Date Encounter Type Care Provider Facility Start: 08-22-2022 End: 08-23-[address] YADIRA UNDERWOOD Facility:[facility] Start: 08-17-2022 ambulatory Khushi mcneill MD Work Phone: Rheumatology Comment on above: 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 Start: 08-10-2022 End: 08-11-2022 ambulatory KHUSHI VELAZCO Facility:[facility] Start: 08-10-2022 End: 08-10-2022 Subsequent hospital visit by physician [facility] Work Phone: [facility] Radiology General Comment on above: Positive DOROTHY (antinu clear antibody) [R76.8] Start: 08-02-2022 End: 08-03-[address] YADIRA UNDERWOOD Facility:[facility] Start: 07-07-2022 End: 07-08-[address] YADIRA UNDERWOOD Facility:[facility] Start: 06-28-2022 End: 06-29-[address] YADIRA UNDERWOOD Facility:[facility] Start: 06-28-2022 End: 06-29-[address] YADIRA UNDERWOOD Facility:[facility] Start: 12-20-2021 Encounter for genera l adult medical examination without abnormal findings DR YADIRA UNDERWOOD [facility] Start: 12-16-2021 End: 12-17-2021 Encounter for general [...] Vaccine ( season) Covid-19 Vaccine ( season) [facility] Start: 06-15-2023 Influenza vaccination Influenza Vacc ine (#1) [facility] Start: 10-15-2022 Depression Assessment Depression Ass essment [facility] Start: 06-15-2022 Influenza vaccination INFLUENZA (#1) [facility] Start: 10-15-2021 DEPRESSION ASSESSMENT DEPRESSION ASS ESSMENT [facility] Start: 03-14-2021 COVID-19 VACCINE (3 - Booster for Pfizer series) COVID-19 VACCINE (3 - Booster for Pfizer series) [facility] Start: 09-21-2020 DIABETES SCREEN DIABETES SCREEN [facility] Start: 09-21-2020 Diabetes Screening Diabetes Screenin g [facility] Start: 2019 SHINGRIX VACCINE (1 of 2) SHINGRIX V ACCINE (1 of 2) [facility] Start: 2014 COLOGUARD (FIT-DNA) COLOGUARD (FIT-D NA) [facility] Start: 2014 Colonoscopy COLONOSCOPY [facility] Start: 2014 COLORECTAL CANCER SCREENING COLORECTAL CANCER SCREENING [facility] Start: [address] COLONOGRAPHY [facility] Start: 2014 FECAL OCCULT BLOOD FECAL OCCULT BLOO D [facility] Start: 2014 Lipid 1996 panel - S jose enrique or Plasma Lipid Screening [facility] Start: 2014 LIPID SCREEN LIPID SCREEN [facility] Start: [address] [facility] Start: 2009 Mammography [facility] Start: 1999 HPV TESTING HPV TESTING [facility] Start: 1990 PAP TESTING PAP TESTING [facility] Start: 1988 Urine microalbumin profile [facility] Start: 1987 HEPATITIS C SCREENING HEPATITIS C SC REENING [facility] Start: 1987 HIV SCREENING HIV SCREENING [facility] Start: 1969 HEPATITIS B (1 of 3 - 3-dose series) HEPATITIS B (1 of 3 - 3-dose series) [facility] Start: 1969 Hepatitis B Vaccine (1 of 3 - 3-dose series) Hepatitis B Vaccine (1 of 3 - 3-dose series) [facility] Payers Date Payer Category Payer Unknown [employer] BLUE CARD PPO OOS [id number] 2021-Present [phone] [address] [place] [address] PPO [id number] 1969 Unknown [id number] 1969 Unknown [id number] 1969 Unknown [id number] 1969 Unknown [id number] 1969 Unknown [id number] 1969 Unknown [id number] 1969 Unknown [id number] 1969 Unknown [id number] 1969 Unknown [id number] 1959 Self-pay 1960 Unknown [id number] Social History Date Type Detail Facility Start: 08-10-2022 Tobacco smoking stat [facility] Never smoked tobacco [facility] Start: 08-10-2022 Tobacco use and exposure Smoke less tobacco non-user [facility] Start: 08-10-2022 End: 08-13-2022 Alcohol intake Current non-drinker of alcohol (finding) [facility] Start: 1970 Sex Assigned At Not on file [facility] Start: 07-31-2022 End: 08-10-2022 Exposure to SARS-CoV-2 (event) Not sure [facility] Start: 09-22-2020 End: 08-10-2022 History of Social function [facility] Start: 09-22-2020 End: 08-10-2022 Tobacco use panel [facility] National Score (1-10 0), lower number is lower risk Not on file [facility] Progress note 08-10-2022 Note Date & Type Note Facility 08-10-2022 Note HNO ID: [id number] Author: RT Tam(R) Service: ? Author Type: [...] RT Tam(R) August 10, 2022 3:47 PM [facility] Progress note 08-10-2022 Note Date & Type Note Facility 08-10-2022 Note HNO ID: [id number] Author: Khushi Velazco MD Service: ? 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 The history as it pertains to her current complaints is outlined as follows: -Sep 2017: was evaluated by green building engineer Dr. Donald Ty (with edits for brevity [...] (+)fatigue HEENT: Positive for: Mouth sores (see HOH) Negative for: Trouble swallowing and Dry mouth [...] Dry eye Macular (more content not included)... [facility] History of Present illness Narrative 08-10-2022 Kaylyn [...] 2022 3:47 PM documented in this encounter [facility] Evaluation note Note Date & Type Note Facility Evaluation note Diagnosis Positive DOROTHY (antinuclear antibody) Other and unspecified nonspecific immunological findings documented in this encounter [facility] Summary Purpose Family History No Family History Records FoundNo Family History Records FoundNo Family History Records Found Advance Directives No Advanced Directives Records FoundNo Advanced Directives Records FoundNo Advanced Directives Records Found Additional Source Comments INFORMATION SOURCE (unrecogn ized section and content) DATE CREATED AUTHOR 08/12/2022 [facility] DATE CREATED AUTHOR AUTHOR'S ORGANIZ ATION 08/27/2022 [facility] DATE CREATED AUTHOR AUTHOR'S ORGANIZ ATION 09/04/2022 [facility] Source Comments (unrecognize d section and content) In the event this informatio n is protected by the Federal Confidentiality of Alcohol and Drug Abuse Patient Records regulations: The Federal rules restrict any use of the information to criminally investigate or prosecute any alcohol or drug abuse patient.[facility] the event this information is protected by the Federal Confidentiality of Alcohol and Drug Abuse Patient Records regulations: The Federal rules restrict any use of the information to criminally investigate or prosecute any alcohol or drug abuse patient.[facility] Care Teams (unrecognized sec tion and content) Direct Chill Caster Relationship Specialty Start Date End Date Yadira Underwood MD PCP - General Family Medicine 06/12/17 Direct Chill Caster Relationship Specialty Start Date End Date Yadira [...] BE BASED ON THE PRIMARY CLINICAL RECORDS. [facility]. provides no warranty or guarantee of the accuracy or completeness of information in this document.
[2023-12-19 09:10] LABS: Alanine Aminotransferase 33 U/L (14-59); Albumin Globulin Ratio 1.2; Albumin Level 4.1 g/dL (3.4-5.0); Alkaline Phosphatase 51 U/L (46-116); Aspartate Amino Transferase 20 U/L (15-37); Bilirubin Total 0.5 mg/dL (0.2-1.0); Calcium 9.3 mg/dL (8.5-10.1); Carbon Dioxide 30.5 mmol/L (21.0-32.0); Chloride 103 mmol/L (98-107); Chol HDL Ratio 2.8; Cholesterol 217 mg/dL (<=200); Estimated GFR (African America >60 (>=60); Estimated GFR (Non-African Ame >60 (>=60); Free T3 3.08 pg/mL (2.18-3.98); Globulin 3.5 g/dL; Glucose 91 mg/dL (74-106); HDL Cholesterol 78 mg/dL (40-60); Magnesium 2.1 mg/dL (1.8-2.4); Potassium 4.5 mmol/L (3.5-5.1); Sodium 142 mmol/L (136-145); Thyroid Stimulating Hormone 2.717 uIU/mL (0.358-3.740); Total Protein 7.6 g/dL (6.4-8.2); Triglycerides 74 mg/dL (<=150); VLDL CHOLESTEROL 14.8 mg/dL
[2023-12-19 09:21] LABS: Free T4 0.97 ng/dL (0.76-1.46)
[2023-12-19 09:56] LABS: Basophils Percent Auto 0.8 % (0.2-2.0); Eosinophils Absolute Auto 0.2 10^3/uL (0.0-0.7); Eosinophils Percent Auto 3.5 % (0.9-7.0); Hematocrit 40.3 % (36.0-48.0); Hemoglobin 12.9 g/dL (12.0-16.0); Immature Granulocytes Abs Auto 0.01 10^3/uL (0.00-0.03); Immature Granulocytes Pct Auto 0.2 % (0.0-0.5); Lymphocytes Absolute Auto 1.9 10^3/uL (1.2-3.8); Mean Corpuscular Hemoglobin 29.5 pg (26.7-34.0); Mean Platelet Volume 10.5 fL (9.5-13.5); Monocytes Absolute Auto 0.5 10^3/uL (0.3-0.8); Monocytes Percent Auto 8.9 % (1.7-12.0); Neutrophils Absolute Auto 2.6 10^3/uL (1.4-6.5); Neutrophils Percent Auto 50.6 % (43.0-75.0); Platelet Count 343 10^3/uL (150-450); Red Blood Count 4.38 10^6/uL (4.20-5.40); Red Cell Distribution Width 12.1 % (11.0-15.0); White Blood Count 5.1 10^3/uL (4.0-11.0)
[2023-12-19 09:58] LABS: Estimated Average Glucose 111 mg/dL; Glycohemoglobin A1C 5.5 % (4.5-6.2)
== END 2023-12-19 07:34 | disposition home or self-care (01) ==
LOC: LAB 07:34
PROVIDERS: PCP Family Medicine; Visit Provider Family Medicine
DX: Z00.00 Encounter for general adult medical examination without abnormal findings (principal); R53.83 Other fatigue; R94.6 Abnormal results of thyroid function studies; E78.1 Pure hyperglyceridemia
CPT/HCPCS: 36415; 80053; 80061; 82728; 83036; 83540; 83735; 84439; 84443; 84481; 85025

== ENCOUNTER 2024-03-20 16:26 | Outpatient (OUT) | payer BC, SELFPAY ==
[2024-03-20 16:47] LABS: Basophils Absolute Auto 0.1 10^3/uL (0.0-0.1); Basophils Percent Auto 0.6 % (0.2-2.0); Eosinophils Absolute Auto 0.4 10^3/uL (0.0-0.7); Eosinophils Percent Auto 3.9 % (0.9-7.0); Hematocrit 38.2 % (36.0-48.0); Hemoglobin 12.5 g/dL (12.0-16.0); Immature Granulocytes Abs Auto 0.03 10^3/uL (0.00-0.03); Immature Granulocytes Pct Auto 0.3 % (0.0-0.5); Lymphocytes Absolute Auto 3.3 10^3/uL (1.2-3.8); Lymphocytes Percent Auto 35.8 % (20.5-60.0); Mean Corpuscular HGB Conc 32.7 g/dL (29.9-35.2); Mean Corpuscular Hemoglobin 29.2 pg (26.7-34.0); Mean Corpuscular Volume 89.3 fL (81.0-99.0); Mean Platelet Volume 9.7 fL (9.5-13.5); Monocytes Absolute Auto 0.7 10^3/uL (0.3-0.8); Monocytes Percent Auto 7.4 % (1.7-12.0); Neutrophils Absolute Auto 4.8 10^3/uL (1.4-6.5); Platelet Count 349 10^3/uL (150-450); Red Blood Count 4.28 10^6/uL (4.20-5.40); Red Cell Distribution Width 12.2 % (11.0-15.0); White Blood Count 9.3 10^3/uL (4.0-11.0)
[2024-03-20 17:39] LABS: INR 1.03; Partial Thromboplastin Time 27.9 sec (22.3-36.2); Prothrombin Time 10.9 sec (9.0-11.6)
== END 2024-03-20 16:27 | disposition home or self-care (01) ==
LOC: LAB 16:30
PROVIDERS: PCP Family Medicine; Visit Provider Family Medicine
DX: R04.0 Epistaxis (principal)
CPT/HCPCS: 36415; 85025; 85610; 85730

== ENCOUNTER 2025-03-22 16:02 | Emergency (ER) | payer BC, SELFPAY ==
[2025-03-22] VITALS (17 sets, daily range): BP systolic 119–132; BP diastolic 61–70; PULSE 71–107; TEMP 37.3–38.1; O2SAT 97–100; BMI 19.6
--- OUTSIDE RECORDS SUMMARY | 2025-03-22 16:10 | XMS_ITS | CCD ---
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 Name Role Phone KHUSHI VELAZCO Referring Unavailable YADIRA UNDERWOOD Primary Care Unavailable KHUSHI VELAZCO Referring Unavailable YADIRA UNDERWOOD Primary Care Unavailable Yadira Underwood MD Primary Care Provider [phone] DR YADIRA UNDERWOOD Admitting Unavailable HOY, DR MAY Attending Unavailable ROSANAY, DR MAY Primary Care Unavailable HOY, DR MAY Admitting Unavailable HOY, DR MAY Attending Unavailable HOY, DR MAY Primary Care Unavailable HOY, DR MAY Consulting Unavailable HOY, DR MAY Admitting Unavailable HOY, DR MAY Attending Unavailable ROSANAY, DR MAY Primary Care Unavailable HOY, DR MAY Consulting Unavailable CLAUS LOCKWOOD Admitting Unavailable CLAUS LOCKWOOD Attending Unavailable MONTY, DR MAY Primary Care Unavailable ORSANAY, DR MAY Admitting Unavailable HOY, DR MAY [...] Unavailable Yadira Underwood MD Primary Care Provider [phone] Unavailable Primary Care Provider UnavailKAYLYN Garcia Attending Unavailable Medications Current Medications Medication Drug Class(es) Dates Sig (Normalized) Sig (Original) benzoyl peroxide 0.05 mg/mg / clindamycin 0.01 mg/mg topical gel (7 sources) Lincosamide Antibacterial Start: 01-03-2024 End: 02-17-2025 clindamycin-benzo yl peroxide (BenzaClin) gel Indications: Acne vulgaris Apply thin layer to face, once daily in the morning, 30 day supply 50 g 02/17/2025 Active Start: 04-14-2015 Clindamycin-Be nzoyl Peroxide 1-5 % gel Use as directed. 0 04/14/2015 Active Comment on above: Use as directed. cefuroxime 250 mg oral tablet (8 sources) Cephalosporin Antibacterial Start: 01-03-20 End: 02-18-20 25 take 1 tablet by mouth once daily cefuroxime (Ceftin) 250 MG tablet Indications: Acne vulgaris 1 tablet by mouth once a day 30 tablet 02/17/2025 Active Clascoterone (Winlevi) 1 % cream (2 sources) Start: 02-18-20 25 Clascoterone (Winlevi) 1 % cream Indications: Acne vulgaris Apply to face bid 60 g 02/17/2025 Active Completed/Discontinued Medications Medication Drug Class(es) Dates Sig (Normalized) Sig (Original) ferrous sulfate 325 mg oral tablet (2 sources) take 1 tablet by mouth once daily at breakfast ferrous sulfate (FEROSUL) 325 mg (65 mg iron) tablet Take 325 mg by mouth daily with breakfast. 0 Active Comment on above: Take 325 mg by mouth daily with breakfast. minocycline 50 mg oral capsule (2 sources) Tetracycline-clas s Drug take 1 capsule by mouth twice [...] osteoarthritis, unspecified site] Onset: 09-21-2017 09-21-2017 Chronic Other skin disorders (2 sources) Acne vulgaris; Translations: [Acne vulgaris] 02-17-2025 Episodic Residual codes; unclassified (1 source) Other insomnia; [...] 08-22-2022 BASO # 0.0 103/ul Normal 0.0-0.1 [facility] Comment on above: Performed By: #### S EDR #### [facility] [address] [place] [address] Dr. Heather Day Basophils/100 WBC (Bld) 0.6 % Normal 0.2-2.0 [facility] Comment on above: Performed By: #### S EDR #### [facility] [address] [place] [address] Dr. Heather Day EO # 0.2 103/ul Normal 0.0-0.7 [facility] Comment on above: Performed By: #### S EDR #### [facility] [address] [place] [address] Dr. Heather Day Eosinophils/100 WBC (Bld) 3.2 % Normal 0.9-7.0 [facility] Comment on above: Performed By: #### S EDR #### [facility] [address] [place] [address] Dr. Heather Day Erythrocyte distribution width (RBC) [Ratio] 12.3 % Normal 11.0-15.0 [facility] Comment on above: Performed By: #### S EDR #### [facility] [address] [place] [address] Dr. Heather Day Hematocrit (Bld) [Volume fraction] 38.6 % Normal 36.0-48.0 [facility] Comment on above: Performed By: #### S EDR #### [facility] [address] [place] [address] Dr. Heather Day Hemoglobin (Bld) [Mass/Vol] 12.7 g/dL Normal 12.0-16.0 [facility] Comment on above: Performed By: #### S EDR #### [facility] [address] [place] [address] Dr. Heather Day IG # 0.02 10e3/ul Normal 0.00-0.03 [facility] Comment on above: Performed By: #### S EDR #### [facility] [address] [place] [address] Dr. Heather Day IG % 0.3 % Normal 0.0-0.5 [facility] Comment on above: Performed By: #### S EDR #### [facility] [address] [place] [address] Dr. Heather Day LYMPH # 2.6 103/ul Normal 1.2-3.8 [facility] Comment on above: Performed By: #### S EDR #### [facility] [address] [address] [address] Heather Day Lymphocytes/100 WBC (Bld) 36.0 % Normal 20.5-60.0 [facility] Comment on above: Performed By: #### S EDR #### [facility] [address] [address] [address] Heather Day MANUAL DIFF REQ NO Normal [facility] Comment on above: Performed By: #### S EDR #### [facility] [address] [place] [address] Dr. Heather Day MCH (RBC) [Entitic mass] 29.7 pg Normal 26.7-34.0 [facility] Comment on above: Performed By: #### S EDR #### [facility] [address] [address] [address] Heather Day MCHC (RBC) [Mass/Vol] 32.9 g/dL Normal 29.9-35.2 [facility] Comment on above: Performed By: #### S EDR #### [facility] [address] [place] [address] Dr. Heather Day MCV (RBC) [Entitic vol] 90.2 fL Normal 81.0-99.0 [facility] Comment on above: Performed By: #### S EDR #### [facility] [address] [place] [address] Dr. Heather Day MONO # 0.5 103/ul Normal 0.3-0.8 [facility] Comment on above: Performed By: #### S EDR #### [facility] [address] [address] [address] Heather Day Monocytes/100 WBC (Bld) 6.8 % Normal 1.7-12.0 [facility] Comment on above: Performed By: #### S EDR #### [facility] [address] [place] [address] Dr. Heather Day NEUT # 3.8 103/ul Normal 1.4-6.5 [facility] Comment on above: Performed By: #### S EDR #### [facility] [address] [place] [address] Dr. Heather Day Neutrophils/100 WBC (Bld) 53.1 % Normal 43.0-75.0 [facility] Comment on above: Performed By: #### S EDR #### [facility] [address] [place] [address] Dr. Heather Day Platelet mean volume (Bld) [Entitic vol] 10.1 fL Normal 9.5-13.5 [facility] Comment on above: Performed By: #### S EDR #### [facility] [address] [place] [address] Dr. Heather Day PLT 309 103/ul Normal 150-450 [facility] Comment on above: Performed By: #### S EDR #### [facility] [address] [place] [address] Dr. Heather Day RBC 4.28 106/ul Normal 4.20-5.40 [facility] Comment on above: Performed By: #### S EDR #### [facility] [address] [place] [address] Dr. Heather Day WBC 7.1 103/ul Normal 4.0-11.0 [facility] Comment on above: Performed By: #### S EDR #### [facility] [address] [place] [address] Dr. Heather Day FERRITINon 08-22-2022 Ferritin [Mass/Vol] 60.0 ng/mL Normal 8.0-252.[address] [facility] Comment on above: Performed By: #### F ERR, IRON #### [facility] [address] [place] [address] Dr. Heather Day IRONon 08-22-2022 Iron [Mass/Vol] 66.0 ug/dL Normal 50.0-170.0 [facility] Comment on above: Performed By: #### F ERR, IRON #### [facility] [address] [address] [address] Heather Day BETA 2 GLYCOPROTEIN, IGGon 1 Beta 2 glycoprotein 1 IgG IA Qn <9 Normal <20 [facility] Comment on above: Order Comment: Jeffrey schwartz Type: BLOOD SPECIMEN Ordering Facility: [facility] Address: [address] [place] [address] Result Comment: <20 SGU Negative 20-80 SGU Low Positive >80 SGU High Positive These results were obtained with the Inova QUANTA Lite B2 GPI IgG LISSETTE. B2 GPI IgG values obtained with different manufacturers' assay methods may not be used interchangeably. The magnitude of the reported IgG levels cannot be correlated to an endpoint titer. Performed By: #### C ARDIG, BETA2M, BETA2G, 5076-5, ALLYSON #### [facility] CLIA [id number] [address] [place] [address] [place] BETA 2 GLYCOPROTEIN, IGMon 1 Beta 2 glycoprotein 1 IgM IA Qn <9 Normal <20 [facility] Comment on above: Order Comment: Jeffrey [facility] Type: BLOOD SPECIMENOrdering Facility: [facility] Address: [address] [place] [address] Result Comment: <20 SMU Negative 20-80 SMU Low Positive >80 SMU High positive These results were obtained with the Inova QUANTA Lite B2 GPI IgM LISSETTE. B2 GPI IgM values obtained with different manufacturers' assay methods may not be used interchangeably. The magnitude of the reported IgM levels cannot be correlated to an endpoint titer. Performed By: #### C ARDIG, BETA2M, BETA2G, 5076-5, ALLYSON ####[facility] [id number] [place] [address] [place] C3 SerPl-mCncon 08-10-2022 Complement C3 [Mass/Vol] 130 mg/dL Normal 86-166 [facility] Comment on above: Order Comment: Weroi [facility] Type: BLOOD SPECIMEN Ordering Facility: [facility] Address: [address] [place] [address] Performed By: #### 4 498-2, 4485-9 #### [facility] CLIA [id number] [address] [place] [address] [place] C4 SerPl-mCncon 08-10-2022 Complement C4 [Mass/Vol] 28 mg/dL Normal 13-46 [facility] Comment on above: Order Comment: Speci men Type: BLOOD SPECIMEN Ordering Facility: [facility] Address: [address] [place] [address] Performed By: #### 4 498-2, 4485-9 #### [facility] CLIA [id number] [address] [place] [address] CARDIOLIPIN IGG ABSon 2021 Cardiolipin IgG IA Qn (S) <9.0 Normal <15.0 [facility] Comment on above: [facility] Comment: [facility] Type: BLOOD SPECIMENOrdering Facility: [facility] Address: [address] [place], [place] [address] Result Comment: <15 GPL Negative 15-20 GPL Indeterminate >20 GPL Positive The following results were obtained with the Inova QUANTA Lite TIFFANIE IgG III LISSETTE. Cardiolipin IgG values obtained with the different manufacturers' assay methods may not be used interchangeably. The magnitude of the reported IgG levels cannot be correlated to an endpoint titer. Performed By: #### C ARDIG, BETA2M, BETA2G, 5076-5, CARDIM ####[facility] [id number] [address] [place] CARDIOLIPIN IGM ABSon 2021 Cardiolipin IgM IA Qn (S) 9.1 MPL Normal <12.5 [facility] Comment on above: Order Comment: Speci men Type: BLOOD SPECIMENOrdering Facility: [facility] Address: [address] [place], [place] [address] Result Comment: <12. 5 MPL Negative 12.5-20 MPL Indeterminate >20 MPL Positive The following results were obtained with the Inova QUANTA Lite TIFFANIE IgM III LISSETTE. Cardiolipin IgM values obtained with the different manufacturers' assay methods may not be used interchangeably. The magnitude of the reported IgM levels cannot be correlated to an endpoint titer. ??? Performed By: #### C NEGRO, BETA2M, BETA2G, 5076-5, CARDIJim ####[facility] [id number] [id number] [place] CBC W Auto Differential pane l (Bld)on 08-10-2022 Basophils (Bld) [#/Vol] 0.03 10*3/uL Normal <0.11 [facility] Comment on above: Order Comment: Speci men Type: BLOOD SPECIMEN Ordering Facility: [facility] Address: [address] [place] [address] Performed By: #### 5 7021-8 #### [facility] CLIA [id number] [address] [place] [address] [place] Basophils/100 WBC (Bld) 0.4 % Normal [facility] Comment on above: Order Comment: Speci men Type: BLOOD SPECIMEN Ordering Facility: [facility] Address: [address] [place] [address] Performed By: #### 5 7021-8 #### [facility] [place] [id number] [address] [place], [place] [address] [place] [address] [place] Differential cell count method Nom (Bld) Auto Normal [facility] Comment on above: Order Comment: Speci men Type: BLOOD SPECIMEN Ordering Facility: [facility] Address: [address] Performed By: #### 5 7021-8 #### [facility] CLIA [id number] [facility] [place] [address] [place] Eosinophils (Bld) [#/Vol] 0.13 10*3/uL Normal <0.46 [facility] Comment on above: Order Comment: Speci men Type: BLOOD SPECIMEN Ordering Facility: [facility] Address: [address] Performed By: #### 5 7021-8 #### [facility] IA [id number] [address] [place] [address] [place] Eosinophils/100 WBC (Bld) 1.6 % Normal [facility] Comment on above: Order Comment: Speci men Type: BLOOD SPECIMEN Ordering Facility: [facility] Address: [address] [place] [address] Performed By: #### 5 7021-8 #### [facility] IA [id number] [address] [place] [address] [place] Erythrocyte distribution width (RBC) [Ratio] 12.4 % Normal 11.5-15.0 [facility] Comment on above: Order Comment: Speci men Type: BLOOD SPECIMEN Ordering Facility: [facility] Address: [address] [place] [address] Performed By: #### 5 7021-8 #### [facility] IA [id number] [address] [place] [address] [place] Hematocrit (Bld) [Volume fraction] 41.6 % Normal 36.0-46.0 [facility] Comment on above: Order Comment: Speci men Type: BLOOD SPECIMEN Ordering Facility: [facility] Address: [address] [place] [address] Performed By: #### 5 7021-8 #### [facility] IA [id number] [address] [place] [address] [place] Hemoglobin (Bld) [Mass/Vol] 13.4 g/dL Normal 11.5-15.5 [facility] Comment on above: Order Comment: Speci men Type: BLOOD SPECIMEN Ordering Facility: [facility] Address: [address] [place] [address] Performed By: #### 5 7021-8 #### [facility] IA [id number] [address] [place] [address] [place] Immature granulocytes (Bld) [#/Vol] 10*3/uL Normal <0.10 [facility] Comment on above: Order Comment: Speci men Type: BLOOD SPECIMEN Ordering Facility: [facility] Address: [address] [place] [address] Performed By: #### 5 7021-8 #### [facility] IA [id number] [address] [place] [address] [place] Immature granulocytes/100 WBC (Bld) 0.2 % Normal [facility] Comment on above: Order Comment: Speci men Type: BLOOD SPECIMEN Ordering Facility: [facility] Address: [address] [place] [address] Performed By: #### 5 7021-8 #### [facility] IA [id number] [address] [place] [address] [place] Lymphocytes (Bld) [#/Vol] 2.36 10*3/uL Normal 1.00-4.00 [facility] Comment on above: Order Comment: Speci men Type: BLOOD SPECIMEN Ordering Facility: [facility] Address: [address] [place] [address] Performed By: #### 5 7021-8 #### [facility] IA [id number] [address] [place] [address] [place] Lymphocytes/100 WBC (Bld) 28.3 % Normal [facility] Comment on above: Order Comment: Speci men Type: BLOOD SPECIMEN Ordering Facility: [facility] Address: [address] [place] [address] Performed By: #### 5 7021-8 #### [facility] IA [id number] [address] [place] [address] [place] MCH (RBC) [Entitic mass] 30.0 pg Normal 26.0-34.0 [facility] Comment on above: Order Comment: Speci men Type: BLOOD SPECIMEN Ordering Facility: [facility] Address: [address] [place], [place] [address] Performed By: #### 5 7021-8 #### [facility] IA [id number] [address] [place] [address] [place] MCHC (RBC) [Mass/Vol] 32.2 g/dL Normal 30.5-36.0 [facility] Comment on above: Order Comment: Speci men Type: BLOOD SPECIMEN Ordering Facility: [facility] Address: [address] Performed By: #### 5 7021-8 #### [facility] IA [id number] [address] [place] [address] [place] MCV (RBC) [Entitic vol] 93.1 fL Normal 80.0-100.0 [facility] Comment on above: Order Comment: Speci men Type: BLOOD SPECIMEN Ordering Facility: [facility] Address: [address] [place], [place] [address] Performed By: #### 5 7021-8 #### [facility] IA [id number] [address] [place] [address] [place] Monocytes (Bld) [#/Vol] 0.62 10*3/uL Normal <0.87 [facility] Comment on above: Order Comment: Speci men Type: BLOOD SPECIMEN Ordering Facility: [facility] Address: [address] [place] [address] Performed By: #### 5 7021-8 #### [facility] IA [id number] [address] [place] Monocytes/100 WBC (Bld) 7.4 % Normal [facility] Comment on above: Order Comment: Speci men Type: BLOOD SPECIMEN Ordering Facility: [facility] Address: [address] [place], [place] [address] Performed By: #### 5 7021-8 #### [facility] IA [id number] [address] [place] [address] [place] Neutrophils (Bld) [#/Vol] 5.19 10*3/uL Normal 1.45-7.50 [facility] Comment on above: Order Comment: Speci men Type: BLOOD SPECIMEN Ordering Facility: [facility] Address: [address] [place], [place] [address] Performed By: #### 5 7021-8 #### [facility] IA [id number] [address] [place] [address] [place] Neutrophils/100 WBC (Bld) 62.1 % Normal [facility] Comment on above: Order Comment: Speci men Type: BLOOD SPECIMEN Ordering Facility: [facility] Address: [address] [place] [address] Performed By: #### 5 7021-8 #### [facility] IA [id number] [address] [place] [address] [place] Nucleated RBC (Bld) [#/Vol] 10*3/uL Normal <0.01 [facility] Comment on above: Order Comment: Speci men Type: BLOOD SPECIMEN Ordering Facility: [facility] Address: [address] [place] [address] Performed By: #### 5 7021-8 #### [facility] IA [id number] [address] [address] [place] [id number] [place] Nucleated RBC/100 WBC (Bld) [Ratio] 0.0 /100 WBC Normal [facility] Comment on above: Order Comment: Speci men Type: BLOOD SPECIMEN Ordering Facility: [facility] Address: [address] [place] [address] Performed By: #### 5 7021-8 #### [facility] IA [id number] [address] [place] [address] [place] Platelet mean volume (Bld) [Entitic vol] 10.3 fL Normal 9.0-12.7 [facility] Comment on above: Order Comment: Speci men Type: BLOOD SPECIMEN Ordering Facility: [facility] Address: [address] [place], [place] [address] Performed By: #### 5 7021-8 #### [facility] IA [id number] [address] [place] [address] [place] Platelets (Bld) [#/Vol] 326 10*3/uL Normal 150-400 [facility] Comment on above: Order Comment: Speci men Type: BLOOD SPECIMEN Ordering Facility: [facility] Address: [address] [place] [address] Performed By: #### 5 7021-8 #### [facility] IA [id number] [address] [facility] RBC (Bld) [#/Vol] 4.47 10*6/uL Normal 3.90-5.20 [facility] Comment on above: Order Comment: Speci men Type: BLOOD SPECIMEN Ordering Facility: [facility] Address: [address] [place] [address] Performed By: #### 5 7021-8 #### [facility] IA [id number] [address] WBC (Bld) [#/Vol] 8.35 10*3/uL Normal 3.70-11.00 [facility] Comment on above: Order Comment: Speci men Type: BLOOD SPECIMEN Ordering Facility: [facility] Address: [address] [place] [address] Performed By: #### 5 7021-8 #### [facility] IA [id number] [address] [place] CK SerPl-cCncon 08-10-2022 CK [Catalytic activity/Vol] 56 U/L Normal 42-196 [facility] Comment on above: Order Comment: Speci men Type: BLOOD SPECIMEN Ordering Facility: [facility] Address: [address] [place] [address] Performed By: #### 2 157-6 #### [facility] IA [id number] [address] [place] CNOVon 08-10-2022 CNOV Office Visit (NOLAN ) DONTAE VIVEROS ([id number]) 1970 F Date Time Provider Department 08/10/22 [...] as follows: -Sep 2017: was evaluated by account general manager Dr. Donald Ty (with edits for [...] (+)fatigue HEENT: Positive for: Mouth sores (see [place]) Negative for: Trouble swallowing and Dry mouth [...] dryness Negativ (more content not included)... Normal [facility] Cardiolipin IgA Ser IA-aCnco n 08-10-2022 Cardiolipin IgA IA Qn (S) <9.0 Normal <12.0 [facility] Comment on above: Order Comment: Speci men Type: BLOOD SPECIMENOrdering Facility: [facility] Address: [address] [place] [address] Result Comment: <12 APL Negative 12-20 APL Indeterminate >20 APL Positive The following results were obtained with the [employer] Layer[employer]ome TIFFANIE IgA III LISSETTE. Cardiolipin IgA values obtained with the different manufacturers' assay methods may not be used interchangeably. The magnitude of the reported IgA levels cannot be correlated to an endpoint titer. Performed By: #### C ARDIG, BETA2M, BETA2G, 5076-5, CARDIM ####[facility] [id number] [address] [place] LUPUS PANELon 08-10-2022 aPTT Coag (Bld) [Time] 30.3 s Normal 24.0-35.1 [facility] Comment on above: Order Comment: Speci efren Type: BLOOD SPECIMEN Ordering Facility: [facility] Address: [address] [address] Performed By: #### L UPPL #### [facility] CLIA [id number] [address] [place] [address] [place] aPTT W excess hexagonal phase phospholipid Coag (PPP) [Time] 46.5 seconds Normal 34.0-51.8 [facility] Comment on above: Order Comment: Weroi efren Type: BLOOD SPECIMEN Ordering Facility: [facility] Address: [address] [address] Performed By: #### L UPPL #### [facility] CLIA [id number] [address] [place] [address] [place] Delta dRVVT Coag (PPP) [Time diff] 1.3 delta seconds Normal <7.1 [facility] Comment on above: Order Comment: Speci men Type: BLOOD SPECIMEN Ordering Facility: [facility] Address: [address] [place] [address] Performed By: #### L UPPL #### [facility] CLIA [id number] [address] [place] [address] OF [place] dRVVT Coag (PPP) [Time] 38.6 s Normal 32.0-45.7 [facility] Comment on above: Order Comment: Speci men Type: BLOOD SPECIMEN Ordering Facility: [facility] Address: [address] [place] [address] Performed By: #### L UPPL #### [facility] CLIA [id number] [address] [place] [address] dRVVT factor substitution immediately after 1:2 addition of normal plasma Coag (PPP) [Time] 37.4 seconds Normal 32.0-45.7 [facility] Comment on above: Order Comment: Speci men Type: BLOOD SPECIMEN Ordering Facility: [facility] Address: [address] [place] [address] Performed By: #### L UPPL #### [facility] CLIA [id number] [address] [place] [address] OF [place] dRVVT W excess hexagonal phase phospholipid actual/normal Coag (PPP) [Relative time] 45.1 seconds Normal 34.2-47.9 [facility] Comment on above: Order Comment: Speci men Type: BLOOD SPECIMEN Ordering Facility: [facility] Address: [address] [place], [place] [address] Performed By: #### L UPPL #### [facility] CLIA [id number] [address] [place] [address] [facility] OF [place]Y dRVVT/dRVVT.excess phospholipid Coag (PPP) [Ratio] 1.06 Normal <1.32 [facility] Comment on above: Order Comment: Jeffrey schwartz Type: BLOOD SPECIMEN Ordering Facility: [facility] Address: [address] [place] [address] Performed By: #### L UPPL #### [facility] CLIA [id number] [address] [place] [address] OF [place] Lupus anticoagulant neutralization platelet Coag Ql (PPP) Negative Normal Negative [facility] Comment on above: Order Comment: Jeffrey schwartz Type: BLOOD SPECIMEN Ordering Facility: [facility] Address: [address] [place] [address] Performed By: #### L UPPL #### [facility] CLIA [id number] [address] [place] [address] [place] Thrombin time Coag (PPP) [Time] 16.8 seconds Normal <18.6 [facility] Comment on above: Order Comment: Jeffrey schwartz Type: BLOOD SPECIMEN Ordering Facility: [facility] Address: [address] [place] [address] Performed By: #### L UPPL #### [facility] CLIA [id number] [address] [place] [address] [place] PT panel Coag (PPP)on 2021 INR Coag (PPP) [Relative time] 1.0 {INR} Normal 0.9-1.3 [facility] Comment on above: Order Comment: Jeffrey schwartz Type: BLOOD SPECIMEN Ordering Facility: [facility] Address: [address] [place] [address] Result Comment: Mere min K Antagonist (VKA) Therapeutic Range: INR 2 to 3 (Target INR of 2.5) Note: For patients treated with VKA drugs, such as warfarin, the [employer] 2012 Guideline recommends [...] ETIENNE, et al. Chest 2012, 141:7S-47S Eugenio GARCIA, et al. [facility] 2017, 70: 252-289 Performed By: #### 3 4528-0, 68119-3 #### [facility] [place] [id number] [address] [place] [address] [place] PT Coag (PPP) [Time] 10.4 s Normal 9.7-13.0 [facility] Comment on above: Order Comment: Speci men Type: BLOOD SPECIMEN Ordering Facility: [facility] Address: [address] [place] [address] Performed By: #### 3 4528-0, 09111-0 #### [facility] [place] [id number] STATES [place] URINALYSIS, DIPSTICK ONLYon 08-10-2022 Bilirubin Ql (U) Negative Normal Negative [facility] Comment on above: Order Comment: Speci men Type: URINE SPECIMENOrdering Facility: [facility] Address: [address] [place] [address] Performed By: #### U A ####[facility] [id number] [address] [place] Clarity (Unsp spec) Clear Normal Clear [facility] Comment on above: Order Comment: Speci men Type: URINE SPECIMENOrdering Facility: [facility] Address: [address] [place] [address] Performed By: #### U A ####[facility] [id number] [address] [place] Color (U) Yellow Normal Yellow [facility] Comment on above: Order Comment: Speci men Type: URINE SPECIMENOrdering Facility: [facility] Address: [address] [place] [address] Performed By: #### U A ####[facility] [id number] [place], [place] [id number] [place] [address] Glucose Test strip (U) [Mass/Vol] Negative Normal Negative [facility] Comment on above: Order Comment: Speci men Type: URINE SPECIMENOrdering Facility: [facility] Address: [address] [place] [address] Performed By: #### U A ####[facility] [id number] [place] [address] [place] Hemoglobin Ql (U) Negative Normal Negative [facility] Comment on above: Order Comment: Speci men Type: URINE SPECIMENOrdering Facility: [facility] Address: [address] [place] [address] Performed By: #### U A ####[facility] [id number] [address] STATES OF [facility] Ketones Ql (U) Trace Abnormal Negative [facility] Comment on above: Order Comment: Speci men Type: URINE SPECIMENOrdering Facility: [facility] Address: [address] [place] [address] Performed By: #### U A ####[facility] [id number] [place] [address] [facility] Leukocyte esterase Test strip Ql (U) Trace Abnormal Negative [facility] Comment on above: Order Comment: Speci men Type: URINE SPECIMENOrdering Facility: [facility] Address: [address] [place] [address] Performed By: #### U A ####[facility] [id number] [place] [address] [place] Nitrite Ql (U) Negative Normal Negative [facility] Comment on above: Order Comment: Speci men Type: URINE SPECIMENOrdering Facility: [facility] Address: [address] [place] [address] Performed By: #### U A ####[facility] [id number] [place] [address] [place] pH (U) 6.0 [pH] Normal 5.0-8.0 [facility] Comment on above: Order Comment: Speci men Type: URINE SPECIMENOrdering Facility: [facility] Address: [address] [place] [address] Performed By: #### U A ####[facility] [id number] [address] [place] Protein (U) [Mass/Vol] Negative Normal Negative [facility] Comment on above: Order Comment: Speci men Type: URINE SPECIMENOrdering Facility: [facility] Address: [address] [place] [address] Performed By: #### U A ####[facility] [id number] [address] [place] Specific gravity (U) [Rel density] 1.010 Normal 1.005-1.030 [facility] Comment on above: Order Comment: Speci men Type: URINE SPECIMENOrdering Facility: [facility] Address: [address] [place] [address] Performed By: #### U A ####[facility] [id number] [address] OF [place] Urobilinogen Ql (U) 0.2 EU/dL Normal 0.2-1.0 EU/dL [facility] Comment on above: Order Comment: Speci men Type: URINE SPECIMENOrdering Facility: [facility] Address: [address] [place] [address] Performed By: #### U A ####[facility] [id number] [address] [place] XR CHEST 2V FRONTAL/LATon [...] thoracic spine. IMPRESSION: No acute radiographic abnormality. Organ Pipe Voicer: PSCB Transcribe Date/Time: Aug 10 2022 3:53P Dictated by : NISHI MOORE MD This examination was interpreted and the report reviewed and electronically signed by: NISHI MOORE MD on Aug 10 2022 3:53PM EST [id number] Normal [facility] aPTT PPPon 08-10-2022 aPTT Coag (PPP) [Time] 27.5 s Normal 23.0-32.4 [facility] Comment on above: Order Comment: Speci men Type: BLOOD SPECIMEN Ordering Facility: [facility] Address: [address] [place], [place] [id number] Performed By: #### 3 4528-0, 31619-2 #### [facility] CLIA [id number] [address] [place] [address] [place] IMMUNOGLOBULINS IGA/IGM/IGG/ IGE QUANTITAon 08-09-2022 Immunoglobulin A, Qn, Serum 113 mg/dL Normal 87-352 [facility] Comment on above: Result Comment: Perf ormed at: CB Performed By: #### I MMUNGF #### [facility] [address] [place] [address] Dr. Heather Day Immunoglobulin E, Total 5 IU/mL Critically low 6-495 [facility] Comment on above: Result Comment: Perf ormed at: BN Performed By: #### I MMUNGF #### [facility] [address] [place] [address] Dr. Heather Day Immunoglobulin G, Qn, Serum 798 mg/dL Normal 586-1602 [facility] Comment on above: Result Comment: Perf ormed at: CB Performed By: #### I MMUNGF #### [facility] [address] [address] [address] Heather Day Immunoglobulin M, Qn, Serum 67 mg/dL Normal 26-217 [facility] Comment on above: Result Comment: Perf ormed at: CB Performed By: #### I MMUNGF #### [facility] [address] [address] [address] Heather Day DOROTHY by IFAon 08-06-2022 Antinuclear Antibodies, IFA Positive Abnormal [facility] Comment on above: Result Comment: Nega tive <1:80 Borderline 1:80 Positive >1:80 Performed By: #### S [place] #### [facility] [address] [place] [address] Dr. Heather Day Centriole Pattern Normal [facility] Comment on above: Performed By: #### S [place] #### [facility] [address] [address] [address] Heather Day Centromere Pattern Normal The [facility] Comment on above: Performed By: #### S [place] #### [facility] [address] [address] [address] Heather Day Homogeneous Pattern 1:320 Critically high [facility] Comment on above: Result Comment: ICAP nomenclature: AC-1 Performed By: #### S [place] #### [facility] [address] [address] [address] Heather Day Midbody Pattern Normal The [facility] Comment on above: Performed By: #### S [place] #### [facility] [address] [address] [address] Heather Day Note: Comment Normal [facility] Comment on above: Result Comment: For more [...] titers Nucleosomes, Histones Drug-induced SLE Speckled Sm, [employer] MANAGER, SCL-70, SLE,MCTD,PSS (diffuse form), SS-A/SS-B Sjogrens Nucleolar SCL-70, PM-1/SCL High titers Scleroderma, PM/DM Centromere Centromere PSS (limited form) w/Crest syndrome variable Nuclear Dot Sp100,a76-rdpsny Primary Biliary Cirrhosis Nuclear GP210, Primary Biliary Cirrhosis Membrane tenzin A,B,C Performed By: #### S [place] #### [facility] [address] [place] [address] Dr. Heather Day Nuclear Dot Pattern Normal [facility] Comment on above: Performed By: #### S [place] #### [facility] [address] [place] [address] Dr. Heather Day Nuclear Membrane Pattern Normal [facility] Comment on above: Performed By: #### S [place] #### [facility] [address] [place] [address] Dr. Heather Day Nucleolar Pattern Normal [facility] Comment on above: Performed By: #### S [place] #### [facility] [address] [place] [address] Dr. Heather Day PCNA Pattern Normal [facility] Comment on above: Performed By: #### S [place] #### [facility] [address] [place] [address] Dr. Heather Day Speckled Pattern Normal [facility] Comment on above: Performed By: #### S [place] #### [facility] [address] [place] [address] Dr. Heather Day Spindle Apparatus Pattern Normal [facility] Comment on above: Performed By: #### S [place] #### [facility] [address] [place] [address] Dr. Heather Day DOROTHY DIRECTon 08-04-2022 DOROTHY Direct Negative Normal Negative [facility] Comment on above: Performed By: #### A NAD #### [facility] [address] [place] [address] Dr. Heather Day ANTISTREPTOLYSIN O AB (ASO)o n 08-04-2022 Antistreptolysin O Ab 49.4 IU/mL Normal 0.0-200.0 [facility] Comment on above: Performed By: #### A SOAB #### [facility] [address] [address] [address] Heather Day C3 and C4 COMPLEMENTon 08-04 Complement C3, Serum 112 mg/dL Normal 82-167 [facility] Comment on above: Performed By: #### S [place] #### [facility] [address] [address] [address] Heather Day Complement C4, Serum 22 mg/dL Normal 12-38 [facility] Comment on above: Performed By: #### S [place] #### [facility] [address] [place] [address] Dr. Heather Day SLE PROFILE Aon 08-04-2022 Anti-DNA (DS) Ab Qn <1 Normal 0-[address] [facility] Comment on above: Result Comment: Nega tive <5 Equivocal 5 - 9 Positive >9 Performed By: #### S [place] #### [facility] [address] [place] [address] Dr. Heather Day Antichromatin Antibodies <0.2 Normal 0.0-0.9 [facility] Comment on above: Performed By: #### S [place] #### [facility] [address] [place] [address] Dr. Heather Day RA Latex Turbid. <10.0 Normal <14.0 [facility] Comment on above: Performed By: #### S [place] #### [facility] [address] [address] [address] Heather Day [employer] MANAGER Antibodies 0.7 AI Normal 0.0-0.9 [facility] Comment on above: Performed By: #### S [place] #### [facility] [address] [place] [address] Dr. Heather Day Sjogrbladimir's Anti-SS-A <0.2 Normal 0.0-0.[address] [facility] Comment on above: Performed By: #### S [place] #### [facility] [address] [place] [address] Dr. Yilan Day Sjogren's Anti-SS-B <0.2 Normal 0.0-0.[address] [facility] Comment on above: Performed By: #### S [place] #### [facility] [address] [place] [address] Dr. Heather Day Perry Antibodies <0.2 Normal 0.0-0.9 [facility] Comment on above: Performed By: #### S [place] #### [facility] [address] [place] [address] Dr. Heather Day CBC AUTO DIFFon 08-02-2022 BASO # 0.0 103/ul Normal 0.0-0.1 [facility] Comment on above: Performed By: #### S EDR #### [facility] [address] [place] [address] Dr. Heather Day Basophils/100 WBC (Bld) 0.6 % Normal 0.2-2.0 [facility] Comment on above: Performed By: #### S EDR #### [facility] [address] [place] [address] Dr. Heather Dya EO # 0.2 103/ul Normal 0.0-0.7 [facility] Comment on above: Performed By: #### S EDR #### [facility] [address] [place] [address] Dr. Heather Day Eosinophils/100 WBC (Bld) 3.6 % Normal 0.9-7.0 [facility] Comment on above: Performed By: #### S EDR #### [facility] [address] [place] [address] Dr. Heather Day Erythrocyte distribution width (RBC) [Ratio] 12.4 % Normal 11.0-15.0 [facility] Comment on above: Performed By: #### S EDR #### [facility] [address] [place] [address] Dr. Heather Day Hematocrit (Bld) [Volume fraction] 36.7 % Normal 36.0-48.0 [facility] Comment on above: Performed By: #### S EDR #### [facility] [address] [place], [place] [address] Dr. Heather Day Hemoglobin (Bld) [Mass/Vol] 11.8 g/dL Critically low 12.0-16.0 [facility] Comment on above: Performed By: #### S EDR #### [facility] [address] [place] [address] Dr. Heather Day IG # 0.01 10e3/ul Normal 0.00-0.03 [facility] Comment on above: Performed By: #### S EDR #### [facility] [address] [place] [address] Dr. Heather Day IG % 0.2 % Normal 0.0-0.5 [facility] Comment on above: Performed By: #### S EDR #### [facility] [address] [place] [address] Dr. Heather Day LYMPH # 2.4 103/ul Normal 1.2-3.8 [facility] Comment on above: Performed By: #### S EDR #### [facility] [address] [place] [address] Dr. Heather Day Lymphocytes/100 WBC (Bld) 38.1 % Normal 20.5-60.0 [facility] Comment on above: Performed By: #### S EDR #### [facility] [address] [place] [address] Dr. Heather Day MANUAL DIFF REQ NO Normal The [facility] Comment on above: Performed By: #### S EDR #### [facility] [address] [place] [address] Dr. Heather Day MCH (RBC) [Entitic mass] 29.6 pg Normal 26.7-34.0 [facility] Comment on above: Performed By: #### S EDR #### [facility] [address] [place] [address] Dr. Heather Day MCHC (RBC) [Mass/Vol] 32.2 g/dL Normal 29.9-35.2 [facility] Comment on above: Performed By: #### S EDR #### [facility] [address] [place] [address] Dr. Heather Day MCV (RBC) [Entitic vol] 92.2 fL Normal 81.0-99.0 [facility] Comment on above: Performed By: #### S EDR #### [facility] [address] [place] [address] Dr. Heather Day MONO # 0.5 103/ul Normal 0.3-0.8 [facility] Comment on above: Performed By: #### S EDR #### [facility] [address] [place] [address] Dr. Heather Day Monocytes/100 WBC (Bld) 7.7 % Normal 1.7-12.0 [facility] Comment on above: Performed By: #### S EDR #### [facility] [address] [place] [address] Dr. Heather Day NEUT # 3.2 103/ul Normal 1.4-6.5 [facility] Comment on above: Performed By: #### S EDR #### [facility] [address] [place] [address] Dr. Heather Day Neutrophils/100 WBC (Bld) 49.8 % Normal 43.0-75.0 [facility] Comment on above: Performed By: #### S EDR #### [facility] [address] [place] [address] Dr. Heather Day Platelet mean volume (Bld) [Entitic vol] 10.1 fL Normal 9.5-13.5 [facility] Comment on above: Performed By: #### S EDR #### [facility] [address] [place] [address] Dr. Heather Day PLT 290 103/ul Normal 150-450 [facility] Comment on above: Performed By: #### S EDR #### [facility] [address] [place] [address] Dr. Heather Day RBC 3.98 106/ul Critically low 4.20-5.40 [facility] Comment on above: Performed By: #### S EDR #### [facility] [address] [place] [address] Dr. Heather Day WBC 6.3 103/ul Normal 4.0-11.0 [facility] Comment on above: Performed By: #### S EDR #### [facility] [address] [place] [address] Dr. Heather Day CRPon 08-02-2022 CRP [Mass/Vol] mg/L Normal <=1.0 [facility] Comment on above: Performed By: #### S EDR #### [facility] [address] [address] [address] Heather Day FREE THYROXINE INDEX T7on FTI 2.45 Normal 1.30-4.50 [facility] Comment on above: Performed By: #### S EDR #### [facility] [address] [place] [address] Dr. Heather Day T3U 35.0 % Normal 30.0-39.0 [facility] Comment on above: Performed By: #### S EDR #### [facility] [address] [place] [address] Dr. Heather Day T4 [Mass/Vol] 7.00 ug/dL Normal 4.80-13.90 [facility] Comment on above: Performed By: #### S EDR #### [facility] [address] [place] [address] Dr. Heather Day IRONon 08-02-2022 Iron [Mass/Vol] 49.0 ug/dL Critically low 50.0-170.[address] [facility] Comment on above: Performed By: #### S EDR #### [facility] [address] [place] [address] Dr. Heatehr Day SED RATE WESTERGRENon 2021 SED RATE 4 mm/hr Normal <=30 [facility] Comment on above: Performed By: #### S EDR #### [facility] [address] [place] [address] Dr. Heather Day TSHon 08-02-2022 TSH 2.616 uIU/mL Normal 0.358-3.740 [facility] Comment on above: Performed By: #### S EDR #### [facility] [address] [place] [address] Dr. Heather Day URIC ACID SERUMon 08-02-2022 Urate [Mass/Vol] 2.1 mg/dL Critically low 2.6-6.0 [facility] Comment on above: Performed By: #### S EDR #### [facility] [address] [place] [address] Dr. Heather Day T4, T3U, FTI LABCORPon 07-08 Free Thyroxine Index 2.6 Normal 1.2-4.9 [facility] Comment on above: Performed By: #### S [place] #### [facility] [address] [place] [address] Dr. Heather Day T3 Uptake 32 % Normal 24-39 [facility] Comment on above: Performed By: #### S [place] #### [facility] [address] [place] [address] Dr. Heather Day T4 [Mass/Vol] 8.0 ug/dL Normal 4.5-12.0 [facility] Comment on above: Performed By: #### S [place] #### [facility] [address] [place] [address] Dr. Heather Day CBC AUTO DIFFon 07-07-2022 BASO # 0.0 103/ul Normal 0.0-0.1 [facility] Comment on above: Performed By: #### S [place] #### [facility] [address] [place] [address] Dr. Heather Day Basophils/100 WBC (Bld) 0.8 % Normal 0.2-2.0 [facility] Comment on above: Performed By: #### S [place] #### [facility] [address] [place] [address] Dr. Heather Day EO # 0.2 103/ul Normal 0.0-0.7 [facility] Comment on above: Performed By: #### S [place] #### [facility] [address] [place] [address] Dr. Heather Day Eosinophils/100 WBC (Bld) 3.7 % Normal 0.9-7.0 [facility] Comment on above: Performed By: #### S [place] #### [facility] [address] [place] [address] Dr. Heather Day Erythrocyte distribution width (RBC) [Ratio] 12.7 % Normal 11.0-15.0 [facility] Comment on above: Performed By: #### S [place] #### [facility] [address] [place] [address] Dr. Heather Day Hematocrit (Bld) [Volume fraction] 39.9 % Normal 36.0-48.0 [facility] Comment on above: Performed By: #### S [place] #### [facility] [address] [place] [address] Dr. Heather Day Hemoglobin (Bld) [Mass/Vol] 13.1 g/dL Normal 12.0-16.0 [facility] Comment on above: Performed By: #### S [place] #### [facility] [address] [place] [address] Dr. Heather Day IG # 0.01 10e3/ul Normal 0.00-0.03 [facility] Comment on above: Performed By: #### S [place] #### [facility] [address] [place] [address] Dr. Heather Day IG % 0.2 % Normal 0.0-0.5 [facility] Comment on above: Performed By: #### S [place] #### [facility] [address] [place] [address] Dr. Heather Day LYMPH # 1.5 103/ul Normal 1.2-3.8 [facility] Comment on above: Performed By: #### S [place] #### [facility] [address] [place] [address] Dr. Heather Day Lymphocytes/100 WBC (Bld) 28.6 % Normal 20.5-60.0 [facility] Comment on above: Performed By: #### S [place] #### [facility] [address] [place] [address] Dr. Heather Day MANUAL DIFF REQ NO Normal [facility] Comment on above: Performed By: #### S [place] #### [facility] [address] [place] [address] Dr. Heather Day MCH (RBC) [Entitic mass] 29.8 pg Normal 26.7-34.0 [facility] Comment on above: Performed By: #### S [place] #### [facility] [address] [place] [address] Dr. Heather Day MCHC (RBC) [Mass/Vol] 32.8 g/dL Normal 29.9-35.2 [facility] Comment on above: Performed By: #### S [place] #### [facility] [address] [place] [address] Dr. Heather Day MCV (RBC) [Entitic vol] 90.7 fL Normal 81.0-99.0 [facility] Comment on above: Performed By: #### S [place] #### [facility] [address] [place] [address] Dr. Heather Day MONO # 0.5 103/ul Normal 0.3-0.8 [facility] Comment on above: Performed By: #### S [place] #### [facility] [address] [place] [address] Dr. Heather Day Monocytes/100 WBC (Bld) 10.4 % Normal 1.7-12.0 [facility] Comment on above: Performed By: #### S [place] #### [facility] [address] [place] [address] Dr. Heather Day NEUT # 2.9 103/ul Normal 1.4-6.5 [facility] Comment on above: Performed By: #### S [place] #### [facility] [address] [place] [address] Dr. Heather Day Neutrophils/100 WBC (Bld) 56.3 % Normal 43.0-75.0 [facility] Comment on above: Performed By: #### S [place] #### [facility] [address] [place] [address] Dr. Heather Day Platelet mean volume (Bld) [Entitic vol] 9.7 fL Normal 9.5-13.5 [facility] Comment on above: Performed By: #### S [place] #### [facility] [address] [place] [address] Dr. Heather Day PLT 301 103/ul Normal 150-450 [facility] Comment on above: Performed By: #### S [place] #### [facility] [address] [place] [address] Dr. Heather Day RBC 4.40 106/ul Normal 4.20-5.40 [facility] Comment on above: Performed By: #### S [place] #### [facility] [address] [place] [address] Dr. Heather Day WBC 5.2 103/ul Normal 4.0-11.0 [facility] Comment on above: Performed By: #### S [place] #### [facility] [address] [place] [address] Dr. Heather Day GLYCOHEMOGLOBIN A1Con 2021 ADA RECOMMENDATION SEE BELOW Normal [facility] Comment on above: Result Comment: ADA RECOMMENDED LIMIT 4.0 - 6.0 ADA THERAPEUTIC TARGET < 7.0 ACTION SUGGESTED > 7.0 Performed By: #### S EDR #### [facility] [address] [place] [address] Dr. Heather Day Glucose [Mass/Vol] 114 mg/dL Normal [facility] Comment on above: Performed By: #### S EDR #### [facility] [address] [place] [address] Dr. Heather Day HbA1c (Bld) [Mass fraction] 5.6 % Normal 4.5-6.2 [facility] Comment on above: Performed By: #### S EDR #### [facility] [address] [place] [address] Dr. Heather Day IRONon 07-07-2022 Iron [Mass/Vol] 124.0 ug/dL Normal 50.0-170.0 [facility] Comment on above: Performed By: #### S EDR #### [facility] [address] [place] [address] Dr. Heather Day PROF 14(COMP METB)on 022 Albumin [Mass/Vol] 4.4 g/dL Normal 3.4-5.0 [facility] Comment on above: Performed By: #### T SH, CMP #### [facility] [address] [place] [address] Dr. Heather Day Albumin/Globulin [Mass ratio] 1.4 {ratio} Normal [facility] Comment on above: Performed By: #### T SH, CMP #### [facility] [address] [place] [address] Dr. Heather Day ALP [Catalytic activity/Vol] 58 U/L Normal 46-116 [facility] Comment on above: Performed By: #### T SH, CMP #### [facility] [address] [place] [address] Dr. Heather Day ALT [Catalytic activity/Vol] 28 U/L Normal 14-59 [facility] Comment on above: Performed By: #### T SH, CMP #### [facility] [address] [place] [address] Dr. Heather Day Anion gap [Moles/Vol] 10.6 mmol/L Normal [facility] Comment on above: Performed By: #### T SH, CMP #### [facility] [address] [place] [address] Dr. Heather Day AST [Catalytic activity/Vol] 19 U/L Normal 15-37 [facility] Comment on above: Performed By: #### T SH, CMP #### [facility] [address] [place] [address] Dr. Heather Day Bilirubin [Mass/Vol] 0.6 mg/dL Normal 0.2-1.0 [facility] Comment on above: Performed By: #### T SH, CMP #### [facility] [address] [place] [address] Dr. Heather Day Calcium [Mass/Vol] 9.8 mg/dL Normal 8.5-10.1 [facility] Comment on above: Performed By: #### T SH, CMP #### [facility] [address] [address] [address] Heather Day Chloride [Moles/Vol] 103 mmol/L Normal 98-107 [facility] Comment on above: Performed By: #### T SH, CMP #### [facility] [address] [address] [address] Heather Day CO2 [Moles/Vol] 29.1 mmol/L Normal 21.0-32.0 [facility] Comment on above: Performed By: #### T SH, CMP #### [facility] [address] [address] [address] Heather Day Creatinine [Mass/Vol] 0.72 mg/dL Normal 0.55-1.02 [facility] Comment on above: Performed By: #### T SH, CMP #### [facility] [address] [place] [address] Dr. Heather Day EGFR-AF ARGENTINE >60 Normal >=60 [facility] Comment on above: Performed By: #### T SH, CMP #### [facility] [address] [place] [address] Dr. Heather Day EGFR-NON AF ARGENTINE >60 Normal >=60 [facility] Comment on above: Performed By: #### T SH, CMP #### [facility] [address] [place] [address] Dr. Heather Day Globulin (S) [Mass/Vol] 3.2 g/dL Normal [facility] Comment on above: Performed By: #### T SH, CMP #### [facility] [address] [place] [address] Dr. Heathre Day Glucose [Mass/Vol] 100 mg/dL Normal 74-106 [facility] [place] Comment on above: Performed By: #### T SH, CMP #### [facility] [address] [place] [address] Dr. Heather Day Potassium [Moles/Vol] 4.7 mmol/L Normal 3.5-5.1 [facility] Comment on above: Performed By: #### T SH, CMP #### [facility] [address] [place] [address] Dr. Heather Day Protein [Mass/Vol] 7.6 g/dL Normal 6.4-8.[address] [facility] Comment on above: Performed By: #### T SH, CMP #### [facility] [address] [place] [address] Dr. Heather Day Sodium [Moles/Vol] 138 mmol/L Normal 136-[address] [facility] Comment on above: Performed By: #### T SH, CMP #### [facility] [address] [place] [address] Dr. Heather Day Urea nitrogen [Mass/Vol] 17.0 mg/dL Normal 7.0-18.0 [facility] Comment on above: Performed By: #### T ELLIOTT, CMP #### [facility] [address] [place] [address] Dr. Heather Day Urea nitrogen/Creatinine [Mass ratio] 23.6 mg/mg Normal [facility] Comment on above: Performed By: #### T ELLIOTT, CMP #### [facility] [address] [place] [address] Dr. Heather Day TSHon 07-07-2022 TSH 2.099 uIU/mL Normal 0.358-3.740 [facility] Comment on above: Performed By: #### S [place] #### [facility] [address] [place] [address] Dr. Heather Day CBC AUTO DIFFon 12-16-2021 BASO # 0.0 103/ul Normal 0.0-0.1 [facility] Comment on above: Performed By: #### S EDR #### [facility] [address] [place] [address] Dr. Heather Day Basophils/100 WBC (Bld) 0.7 % Normal 0.2-2.0 [facility] Comment on above: Performed By: #### S EDR #### [facility] [address] [place] [address] Dr. Heather Day EO # 0.2 103/ul Normal 0.0-0.7 [facility] Comment on above: Performed By: #### S EDR #### [facility] [address] [place] [address] Dr. Heather Day Eosinophils/100 WBC (Bld) 5.1 % Normal 0.9-7.0 [facility] Comment on above: Performed By: #### S EDR #### [facility] [address] [place] [address] Dr. Heather Day Erythrocyte distribution width (RBC) [Ratio] 12.2 % Normal 11.0-15.0 [facility] Comment on above: Performed By: #### S EDR #### [facility] [address] [place] [address] Dr. Heather Day Hematocrit (Bld) [Volume fraction] 40.5 % Normal 36.0-48.0 [facility] Comment on above: Performed By: #### S EDR #### [facility] [address] [place] [address] Dr. Heather Day Hemoglobin (Bld) [Mass/Vol] 13.1 g/dL Normal 12.0-16.0 [facility] Comment on above: Performed By: #### S EDR #### [facility] [address] [place] [address] Dr. Heather Day IG # 0.01 10e3/ul Normal 0.00-0.03 [facility] Comment on above: Performed By: #### S EDR #### [facility] [address] [place] [address] Dr. Heather Day IG % 0.2 % Normal 0.0-0.5 [facility] Comment on above: Performed By: #### S EDR #### [facility] [address] [place] [address] Dr. Heather Day LYMPH # 1.5 103/ul Normal 1.2-3.8 [facility] Comment on above: Performed By: #### S EDR #### [facility] [address] [place] [address] Dr. Heather Day Lymphocytes/100 WBC (Bld) 32.7 % Normal 20.5-60.0 [facility] Comment on above: Performed By: #### S EDR #### [facility] [address] [place] [address] Dr. Heather Day MANUAL DIFF REQ NO Normal [facility] Comment on above: Performed By: #### S EDR #### [facility] [address] [place] [address] Dr. Heather Day MCH (RBC) [Entitic mass] 29.8 pg Normal 26.7-34.0 [facility] Comment on above: Performed By: #### S EDR #### [facility] [address] [place] [address] Dr. Heather Day MCHC (RBC) [Mass/Vol] 32.3 g/dL Normal 29.9-35.2 [facility] Comment on above: Performed By: #### S EDR #### [facility] [address] [place] [address] Dr. Heather Day MCV (RBC) [Entitic vol] 92.0 fL Normal 81.0-99.0 [facility] Comment on above: Performed By: #### S EDR #### [facility] [address] [place] [address] Dr. Heather Day MONO # 0.4 103/ul Normal 0.3-0.8 [facility] Comment on above: Performed By: #### S EDR #### [facility] [address] [place] [address] Dr. Heather Day Monocytes/100 WBC (Bld) 9.5 % Normal 1.7-12.0 [facility] Comment on above: Performed By: #### S EDR #### [facility] [address] [place] [address] Dr. Heather Day NEUT # 2.4 103/ul Normal 1.4-6.5 [facility] Comment on above: Performed By: #### S EDR #### [facility] [address] [place] [address] Dr. Heather Day Neutrophils/100 WBC (Bld) 51.8 % Normal 43.0-75.0 [facility] Comment on above: Performed By: #### S EDR #### [facility] [address] [address] [address] Heather Day Platelet mean volume (Bld) [Entitic vol] 10.1 fL Normal 9.5-13.5 [facility] Comment on above: Performed By: #### S EDR #### [facility] [address] [address] [address] Heather Day PLT 260 103/ul Normal 150-450 [facility] Comment on above: Performed By: #### S EDR #### [facility] [address] [address] [address] Heather Day RBC 4.40 106/ul Normal 4.20-5.40 [facility] Comment on above: Performed By: #### S EDR #### [facility] [address] [place] [address] Dr. Heather Day WBC 4.6 103/ul Normal 4.0-11.0 [facility] Comment on above: Performed By: #### S EDR #### [facility] [address] [place] [address] Dr. Heather Day FREE THYROXINE INDEX T7on FTI 2.63 Normal [facility] Comment on above: Performed By: #### S [place] #### [facility] [address] [place] [address] Dr. Heather Day T3U 35.0 % Normal 23.5-40.5 [facility] Comment on above: Performed By: #### S [place] #### [facility] [address] [place] [address] Dr. Heather Day T4 [Mass/Vol] 7.50 ug/dL Normal 5.53-11.00 [facility] Comment on above: Performed By: #### S [place] #### [facility] [address] [place] [address] Dr. Heather Day GLYCOHEMOGLOBIN A1Con 2021 ADA RECOMMENDATION ADA THERAPEUTIC TARG ET 6.0 - 7.0 ACTION SUGGESTED > 7.0 Normal [facility] Comment on above: Performed By: #### S [place] #### [facility] [address] [address] [address] Heather Day Glucose [Mass/Vol] 120 mg/dL Normal [facility] [place] Comment on above: Performed By: #### S [place] #### [facility] [address] [address] [address] Heather Day HbA1c (Bld) [Mass fraction] 5.8 % Normal <=6.0 [facility] Comment on above: Performed By: #### S [place] #### [facility] [address] [place] [address] Dr. Heather Day IRONon 12-16-2021 Iron [Mass/Vol] 133.0 ug/dL Normal 37.0-170.0 [facility] Comment on above: Performed By: #### I KEREN #### [facility] [address] [place] [address] Dr. Heather Day LIPID PROFILEon 12-16-2021 CHOL-HDL RATIO NORM SEE BELOW Normal [facility] Comment on above: Result Comment: 3.3 - 4.4 LOW RISK 4.4 - 7.1 AVERAGE RISK 7.1 - 11.0 MODERATE RISK >11.0 HIGH RISK Performed By: #### S [place] #### [facility] [address] [place] [address] Dr. Heather Day Cholesterol [Mass/Vol] 193 mg/dL Normal <=200 [facility] Comment on above: Performed By: #### S [place] #### [facility] [address] [place] [address] Dr. Heather Day Cholesterol in HDL [Mass/Vol] 77 mg/dL Normal [facility] Comment on above: Performed By: #### S [place] #### [facility] [address] [place] [address] Dr. Heather Day Cholesterol in LDL [Mass/Vol] 104.8 mg/dL Normal [facility] Comment on above: Performed By: #### S [place] #### [facility] [address] [place] [address] Dr. Heather Day Cholesterol.total/Cho lesterol in HDL [Mass ratio] 2.5 {ratio} Normal [facility] Comment on above: Performed By: #### S [place] #### [facility] [address] [address] [address] Heather Day HDL NORMAL > or = 60 mg/dl - LO W CARDIOVASCULAR RISK <40 mg/dl - HIGH CARDIOVASCULAR RISK Normal [facility] Comment on above: Performed By: #### S [place] #### [facility] [address] [address] [address] Heather Day LDL CALC NORMAL SEE BELOW Normal [facility] Comment on above: Result Comment: <100 mg/dl OPTIMAL 100 - 129 mg/dl NEAR OR ABOVE OPTIMAL 130 - 159 mg/dl BORDERLINE HIGH 160 - 189 mg/dl HIGH >190 mg/dl VERY HIGH Performed By: #### S [place] #### [facility] [address] [address] [address] Heather Day Triglyceride [Mass/Vol] 56 mg/dL Normal <=150 [facility] Comment on above: Performed By: #### S [place] #### [facility] [address] [address] [address] Heather Day VLDL CALC 11.2 mg/dL Normal [facility] Comment on above: Performed By: #### S [place] #### [facility] [address] [address] [address] Heather Day PROF 14(COMP METB)on 022 Albumin [Mass/Vol] 4.2 g/dL Normal 3.5-5.0 [facility] [place] Comment on above: Performed By: #### S [place] #### [facility] [address] [address] [address] Heather Day Albumin/Globulin [Mass ratio] 1.2 {ratio} Normal [facility] Comment on above: Performed By: #### S [place] #### [facility] [address] [address] [address] Heather Day ALP [Catalytic activity/Vol] 60 U/L Normal 38-126 [facility] Comment on above: Performed By: #### S [place] #### [facility] [address] [address] [address] Heather Day ALT [Catalytic activity/Vol] 29 U/L Normal 9-52 [facility] Comment on above: Performed By: #### S [place] #### [facility] [address] [address] [address] Heather Day Anion gap [Moles/Vol] 11.7 mmol/L Normal [facility] Comment on above: Performed By: #### S [place] #### [facility] [address] [address] [address] Heather Day AST [Catalytic activity/Vol] 22 U/L Normal 14-36 [facility] Comment on above: Performed By: #### S [place] #### [facility] [address] [address] [address] Heather Day Bilirubin [Mass/Vol] 0.5 mg/dL Normal 0.2-1.3 [facility] Comment on above: Performed By: #### S [place] #### [facility] [address] [address] [address] Heather Day Calcium [Mass/Vol] 9.2 mg/dL Normal 8.4-10.2 [facility] [place] Comment on above: Performed By: #### S [place] #### [facility] [address] [address] [address] Heather Day Chloride [Moles/Vol] 104 mmol/L Normal 98-107 [facility] [facility] Comment on above: Performed By: #### S [place] #### [facility] [address] [address] [address] Heather Day CO2 [Moles/Vol] 30.6 mmol/L Critically high 22.0-30.0 [facility] Comment on above: Performed By: #### S [place] #### [facility] [address] [address] [address] Heather Day Creatinine [Mass/Vol] 0.65 mg/dL Normal 0.52-1.04 [facility] Comment on above: Performed By: #### S [place] #### [facility] [address] [address] [address] Heather Day EGFR-AF ARGENTINE >60 Normal >=60 [facility] Comment on above: Performed By: #### S [place] #### [facility] [address] [address] [address] Heather Day EGFR-NON AF ARGENTINE >60 Normal >=60 [facility] Comment on above: Performed By: #### [place] #### [facility] [address] [address] [address] Heather Day Globulin (S) [Mass/Vol] 3.4 g/dL Normal [facility] Comment on above: Performed By: #### S [place] #### [facility] [address] [address] [address] Heather Day Glucose [Mass/Vol] 91 mg/dL Normal 74-[address] [facility] Comment on above: Performed By: #### [place] #### [facility] [address] [address] [address] Heather Day Potassium [Moles/Vol] 4.3 mmol/L Normal 3.4-5.0 [facility] Comment on above: Performed By: #### [place] #### [facility] [address] [place] [address] Dr. Heather Day Protein [Mass/Vol] 7.6 g/dL Normal 6.1-8.[address] [facility] Comment on above: Performed By: #### [place] #### [facility] [address] [address] [address] Heather Day Sodium [Moles/Vol] 142 mmol/L Normal 137-[address] [facility] Comment on above: Performed By: #### [place] #### [facility] [address] [address] [address] Heather Day Urea nitrogen [Mass/Vol] 22.0 mg/dL Critically high 7.0-17.0 [facility] Comment on above: Performed By: #### [place] #### [facility] [address] [address] [address] Heather Day Urea nitrogen/Creatinine [Mass ratio] 33.8 mg/mg Normal [facility] Comment on above: Performed By: #### [place] #### [facility] [address] [address] [address] Heather Day TSHon 12-16-2021 TSH 2.806 uIU/mL Normal 0.470-4.680 [facility] Comment on above: Performed By: #### [place] #### [facility] [address] [address] [address] Heather Day TSH RANGE SEE BELOW Normal [facility] Comment on above: Result Comment: <0.3 4 UIU/ml HYPERTHYROID 0.34-5.60 UIU/ml EUTHYROID >5.60 UIU/ml HYPOTHYROID Performed By: #### S [place] #### [facility] [address] [place] [address] Dr. Heather Day Cov[facility]on [facility]15 SARS-CoV-2 (COVID-19) RNA MEGAN+probe Ql (Unsp spec) Not detected Normal NOT DETECTED [facility] Comment on above: Result Comment: This test is not yet approved or cleared by the [place] FDA. When there are no FDA-approved or cleared tests available, and other criteria are met, FDA can make tests available under an emergency access mechanism called an Emergency Use Authorization (EUA). The EUA for this test is supported by the [employer] of Health and Human Service's (HHS's) declaration [...] SARS-CoV-2. Performed By: #### C VDTBH #### [facility] [address] [address] [address] Heather Day Encounters Encounter Date Encounter Type Care Provider Facility Start: 02-17-2025 End: 02-17-2025 Office outpatient visit 25 minutes Kaylyn Underwood MD Work Phone: [facility] Comment on above: Acne vulgaris (Prima ry Dx) Start: 02-17-2025 End: 02-17-2025 ambulatory KAYLYN UNDERWOOD Not Available Start: 02-17-2025 End: 02-17-2025 Bamboo flowsheet Kaylyn Underwood MD Work Phone: [facility] Start: 02-17-2025 End: 02-17-2025 Bamboo flowsheet Kaylyn Underwood MD Work Phone: [facility] Start: 08-22-2022 End: 08-23-[address] YADIRA UNDERWOOD Facility:[facility] Start: 08-17-2022 ambulatory Khushi mcneill MD Work Phone: Rheumatology Comment on above: 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 Start: 08-10-2022 End: 08-11-2022 ambulatory KHUSHI VELAZCO Facility:[facility] Start: 08-10-2022 End: 08-10-2022 Subsequent hospital visit by physician [facility] Work Phone: [facility] General Comment on above: Positive DOROTHY (antinu clear antibody) [R76.8] Start: 08-02-2022 End: 08-03-[address] YADIRA UNDERWOOD Facility:[facility] Start: 07-07-2022 End: 07-08-[address] YADIRA UNDERWOOD Facility:[facility] Start: 06-28-2022 End: 06-29-[address] YADIRA UNDERWOOD Facility:[facility] Start: 06-28-2022 End: 06-29-[address] YADIRA UNDERWOOD Facility:[facility] Start: 12-20-2021 Encounter for genera l adult medical examination without abnormal findings DR YADIRA UNDERWOOD [facility] Start: 12-16-2021 End: 12-17-2021 Encounter for general [...] Treatment Date Care Activity Detail Author Start: 08-13-2025 End: 08-13-2025 Patient encounter procedure 08/13/2025 3:30 PM EDT Office Visit [facility] [address] [place] [address] Kaylyn Underwood MD [address] [place] [address] [facility] Start: 06-15-2025 Influenza vaccination Influenz a Vaccine (Season Ended) [facility] Start: 02-17-2025 End: 02-17-2025 Patient encounter procedure 02/17/2025 3:35 PM EDT Office Visit [facility] [address] [place] [address] Kaylyn Underwood MD [address] [place] [address] Arrived [facility] Comment on above: Arrived Start: 06-15-2023 Covid-19 Vaccine ( season) Covid-19 Vaccine ( season) [facility] Start: 06-15-2023 Influenza vaccination Influenza Vacc ine (#1) [facility] Start: 10-15-2022 Depression Assessment Depression Ass essment [facility] Start: 06-15-2022 Influenza vaccination INFLUENZA (#1) [facility] Start: 10-15-2021 DEPRESSION ASSESSMENT DEPRESSION ASS ESSMENT [facility] Start: 03-14-2021 COVID-19 VACCINE (3 - Booster for Pfizer series) COVID-19 VACCINE (3 - Booster for Pfizer series) [facility] Start: 09-21-2020 DIABETES SCREEN DIABETES SCREEN [facility] Start: 09-21-2020 Diabetes Screening Diabetes Screenin g [facility] Start: 2019 SHINGRIX VACCINE (1 of 2) SHINGRIX V ACCINE (1 of 2) [facility] Start: 2014 COLOGUARD (FIT-DNA) COLOGUARD (FIT-D NA) [facility] Start: 2014 Colonoscopy COLONOSCOPY [facility] Start: 2014 COLORECTAL CANCER SCREENING COLORECTAL CANCER SCREENING [facility] Start: [address] COLONOGRAPHY [facility] Start: 2014 FECAL OCCULT BLOOD FECAL OCCULT BLOO D [facility] Start: 2014 Lipid 1996 panel - S jose enrique or Plasma Lipid Screening [facility] Start: 2014 LIPID SCREEN LIPID SCREEN [facility] Start: 2014 SIGMOIDOSCOPY SIGMOIDOSCOPY [facility] Start: 2009 Mammography [facility] Start: 2009 Screening for malign ant neoplasm of breast Mammogram [facility] Start: 1999 HPV TESTING HPV TESTING [facility] Start: 1999 Screening for malign ant neoplasm of cervix [facility] Start: 1990 PAP TESTING PAP TESTING [facility] Start: 1990 Screening for malign ant neoplasm of cervix Pap Smear [facility] Start: 1988 Urine microalbumin profile [facility] Start: 1987 HEPATITIS C SCREENING HEPATITIS C SC REENING [facility] Start: 1987 HIV SCREENING HIV SCREENING [facility] Start: 1969 HEPATITIS B (1 of 3 - 3-dose series) HEPATITIS B (1 of 3 - 3-dose series) [facility] Start: 1969 Hepatitis B Vaccine (1 of 3 - 3-dose series) Hepatitis B Vaccine (1 of 3 - 3-dose series) [facility] Start: 1969 Screening for malign ant neoplasm of colon [facility] Payers Date Payer Category Payer Unknown [employer] BLUE C[employer] PPO OOS [id number] 2021-Present [phone] [id number] [place] [address] PPO [id number] 2020 Blue Cross Blue Shield BC [id number] 1969 Unknown [id number] [id number] 1969 Unknown [id number]. [id number] 1969 Unknown [id number] [id number]. [id number] 1969 Unknown [id number]. [id number] 1969 Unknown [id number] [id number]. [id number] 1969 Unknown [id number]. [id number] 1969 Unknown [id number] [id number] [id number] 1969 Unknown [id number] [id number]. [id number] 1969 Unknown [id number]. [id number] 1969 Unknown [id number] 1959 Self-pay 1960 Unknown [id number] Social History Date Type Detail Facility Start: 08-10-2022 End: 01-03-2024 Tobacco smoking status NHIS Never smoked tobacco [facility] Start: 08-10-2022 End: 01-03-2024 Tobacco use and exposure Smokeless tobacco non-user [facility] Start: 08-10-2022 End: 08-13-2022 Alcohol intake Current non-drinker of alcohol (finding) [facility] Start: 1970 Sex Assigned At Not on file [facility] Start: 07-31-2022 End: 08-10-2022 Exposure to SARS-CoV-2 (event) Not sure [facility] Start: 08-10-2022 End: 02-17-2025 History of Social function [facility] Start: 08-10-2022 End: 02-17-2025 Tobacco use panel [facility] National Score (1-10 0), lower number is lower risk Not on file [facility] History of Present illness Narrative 02-17-2025 Kaylyn Underwood MD - 02/17/2025 3:35 PM EDT Note Date & Type Note Facility 02-17-2025 History of Presen t illness Narrative Follow up Diagnosis: Acne Location: face Last visit: 1 year ago Symptoms: denies dry skin, denies GI upset Status: clear, happy with treatment Treatments tried and failed: spironolactone, doxycycline, minocycline Current treatment: Ceftin 250 mg every day, tries to take breaks but then starts to break out after missing a few days, Benzaclin gel qd All pertinent medical history, medications, and allergies were reviewed. General Exam: alert, oriented to person, place, and time, normal affect, well appearing Unaccompanied A focused exam completed based on patient reported problems, see below: Skin Exam 1. ACNE VULGARIS Head - Anterior (Face) Clear today, Well controlled with treatment. Continue Ceftin 250 mg every day and Benzaclin gel every day. 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 Start Winlevi cream bid. Instructed on use of prescribed medication. Discussed Winlevi can take up to 3 months to see improvement. Recommend she continue to try to taper the ceftin to daily prn for flares after starting the Winlevi. Plan to discontinue Ceftin at next visit if clear. Notify clinic if flaring despite treatment or if side effects develop. Clascoterone (Winlevi) 1 % cream - Head - Anterior (Face) Apply to face bid Related Medications cefuroxime (Ceftin) 250 MG tablet Take 1 tablet, by mouth, once daily, 30 days clindamycin-benzoyl peroxide (BenzaClin) gel Apply thin layer to face, once daily in the morning, 30 day supply cefuroxime (Ceftin) 250 MG tablet 1 tablet by mouth once a day Next Visit: 6 months documented in this encounter [facility] Progress note 08-10-2022 Note Date & Type Note Facility 08-10-2022 Note HNO ID: [id number] Author: RT Tam(R) Service: ? Author Type: [...] RT Tam(R) August 10, 2022 3:47 PM [facility] Progress note 08-10-2022 Note Date & Type Note Facility 08-10-2022 Note HNO ID: [id number] Author: Khushi Velzaco MD Service: ? 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 The history as it pertains to her current complaints is outlined as follows: -Sep 2017: was evaluated by account general manager Dr. Donald Ty (with edits for [...] (+)fatigue HEENT: Positive for: Mouth sores (see [place]) Negative for: Trouble swallowing and Dry mouth [...] Dry eye Macular (more content not included)... [facility] History of Present illness Narrative 08-10-2022 [...] 2022 3:47 PM documented in this encounter [facility] Evaluation note Note Date & Type Note Facility Evaluation note Diagnosis Positive DOROTHY (antinuclear antibody) Other and unspecified nonspecific immunological findings documented in this encounter [facility] Evaluation note Note Date & Type Note Facility Evaluation note Diagnosis Acne vulgaris- Primary Other acne documented in this encounter [facility] Summary Purpose Family History No Family History Records FoundNo Family History Records FoundNo Family History Records FoundNo Family History Records Found Advance Directives No Advanced Directives Records FoundNo Advanced Directives Records FoundNo Advanced Directives Records FoundNo Advanced Directives Records Found Additional Source Comments INFORMATION SOURCE (unrecogn ized section and content) DATE CREATED AUTHOR 08/12/2022 [facility] DATE CREATED AUTHOR AUTHOR'S ORGANIZ ATION 08/27/2022 [facility] DATE CREATED AUTHOR AUTHOR'S ORGANIZ ATION 09/04/2022 [facility] DATE CREATED AUTHOR AUTHOR'S ORGANIZ ATION 02/20/2025 [facility] EPIC Source Comments (unrecognize d section and content) In the event this informatio n is protected by the Federal Confidentiality of Alcohol and Drug Abuse Patient Records regulations: The Federal rules restrict any use of the information to criminally investigate or prosecute any alcohol or drug abuse patient.[facility] the event this information is protected by the Federal Confidentiality of Alcohol and Drug Abuse Patient Records regulations: The Federal rules restrict any use of the information to criminally investigate or prosecute any alcohol or drug abuse patient.[facility] Care Teams (unrecognized sec tion and content) Nut Dehydrator Operator Relationship Specialty Start Date End Date Yadira Underwood MD PCP - General Family Medicine 06/12/17 Nut Dehydrator Operator Relationship Specialty Start Date End Date Yadira Underwood MD PCP - General Family Medicine 06/12/17 Reason for Visit (unrecogniz ed section and content) Reason Comments Follow-up FOR RECORDS PERTAINING TO PATIENTS WHO ARE [...] BE BASED ON THE PRIMARY CLINICAL RECORDS. [employer] [facility]. provides no warranty or guarantee of the accuracy or completeness of information in this document.
--- NOTE | 2025-03-22 16:19 | ECG_ITS ---
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 Measurements Intervals [place] Rate: 86 P: 65 [place]: 144 QRS: 75 QRSD: 104 T: 90 QT: 350 QTc: 393 Interpretive Statements 1100 Sinus rhythm 2440 Incomplete right bundle branch block [address] depression [address] & Twave abnormality 9130 borderline ECG No previous ECG available for comparison Electronically Signed On 03-22-2025 20:08:02 EDT by KINZA JOYNER M.D.
--- NOTE | 2025-03-22 16:23 | ED_ITS ---
HPI HPI - General Adult General Chief complaint: Nausea/Vomiting/Diarrhea Stated complaint: Nausea/Vomiting/Diarrhea Time Seen by Provider: 03/22/25 16:03 Source: patient Mode of arrival: walk-in History of Present Illness HPI narrative: Patient is a 54-year-old female who presents to the ER with concerns of dehydration, not feeling well. Patient states she awoke yesterday feeling nauseous around 11 AM she began with vomiting and diarrhea. She has had abdominal cramping which she attributes to the multiple episodes of vomiting at least 6 times today with 3 episodes of diarrhea. She has been on Cleocin long- term for skin care but denies any other antibiotic use. She has had low-grade fevers that have fluctuated with symptoms and she has been unable to keep the Tylenol down. She denies any severe abdominal pain and states her symptoms have been gradual in onset but persistent. She denies any known ill exposures, her son recently traveled but was not ill. 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 She admits to no significant medical history other than frequent headaches for which she takes Motrin, admits that there is issues with her eyes when she was asked about seeing a eye doctor given her frequent headaches. She reports feeling lightheaded and dizzy with suspected volume loss as she has not been able to eat or drink for the past 24 to 48 hours with symptoms. Patient appears nontoxic in no acute distress answering questions readily at the bedside, but admits that she does not feel well. She denies any chest pain or shortness of breath. Spouse is at bedside supportive she denies any severe or significant headache at this time. Onset (ago): day(s) (yesterday at 11:00am) Radiation: Reports non-radiation Severity: mild Quality: Reports aching Relieving factors: Reports none Exacerbating factors: Reports eating Associated symptoms: Reports fever/chills and nausea/vomiting; Denies chest pain, cough, diaphoresis, rash or syncope Treatments prior to arrival: Reports none Related Data Home Medications ?Medication ?Instructions ?Recorded ?Confirmed cefuroxime axetil 250 mg tablet mg 03/22/25 doxepin 10 mg capsule mg 03/22/25 Previous Rx's ?Medication ?Instructions ?Recorded cephalexin 500 mg capsule 500 mg PO BID 5 days #10 cap s 03/22/25 dicyclomine 20 mg tablet 20 mg PO TID PRN abdominal p ain 2 03/22/25 days #6 tabs ondansetron HCl 4 mg tablet 4 mg PO Q6H PRN nausea and 03/22/25 vomiting #12 tabs Allergies Allergy/AdvReac Type Severity Reaction Status Date / Time No Known Drug Allergies Allergy Verified 03/22/25 16:07 Review of Systems 2 ROS Constitutional Reports: fever; Denies: chills Eyes Denies: change in vision, blurry vision, light sensitivity, eye discomfort or eye discharge Ears, nose, mouth, and throat Denies: throat pain, neck pain or throat swelling Cardiovascular Denies: chest pain or palpitations Respiratory Denies: shortness of breath or cough Gastrointestinal Reports: abdominal pain, nausea, vomiting and diarrhea; Denies: coffee grounds in vomit Genitourinary Denies: painful urination or urinary frequency Musculoskeletal Denies: back pain, neck pain, extremity pain, extremity swelling or joint pain Integumentary/Breast Denies: rash, itching or redness Neurological Reports: headache (daily for years- uses motrin with relief. ); Denies: numbness in extremities Psychiatric Denies: anxiety Endocrine Denies: excessive urination PFSH PFSH Social History Little interest or pleasure in doing things: not at all Feeling down, depressed, or hopeless: not at all Exam Narrative Exam Narrative: Nurses notes and vital signs reviewed and patient is not hypoxic. General: The patient appears well and in no apparent distress. Patient is resting comfortably on cart. Skin: Warm, dry, no pallor noted. Head: Normocephalic, atraumatic Neck: Supple, trachea mid-line, no tenderness, no lymphadenopathy Eye: Pupils are equal, round and reactive to light, EOMI Ears, Nose, Mouth, and Throat: TM are clear, normal light reflex, oral mucosa is moist, no posterior oropharynx erythema or hypertrophy, uvula is mid-line Cardiovascular: Regular Rate and Rhythm Respiratory: Patient is in no distress, no accessory muscle use, lungs are clear to auscultation, no wheezing, rales or rhonchi. Chest Wall: no tenderness Back: non-tender, no CVA tenderness Musculoskeletal: normal ROM, no tenderness, no swelling GI: Normal bowel sounds, generalized tenderness to palpation, no masses appreciated. No rebound, guarding, or rigidity noted. Neurological: A&O x4 Psychiatric: Cooperative Constitutional Vital Signs, click to edit/add: Last Vital Signs Temp 99.1 F 03/22/25 18:10 Pulse 71 03/22/25 19:00 Resp 12 03/22/25 19:00 BP 119/67 03/22/25 19:00 Pulse Ox 100 03/22/25 18:30 O2 Del Method Room Air 03/22/25 16:07 Course Vital Signs Vital signs: Vital Signs Temperature 100.6 F H 03/22/25 16:07 Pulse Rate 107 H 03/22/25 16:07 Respiratory Rate 20 03/22/25 16:07 Blood Pressure 132/70 03/22/25 16:07 Pulse Oximetry 97 03/22/25 16:07 Oxygen Delivery Method Room Air 03/22/25 16:07 Temperature 99.1 F 03/22/25 18:10 Pulse Rate 71 03/22/25 19:00 Respiratory Rate 12 03/22/25 19:00 Blood Pressure 119/67 03/22/25 19:00 Pulse Oximetry 100 03/22/25 18:30 Oxygen Delivery Method Room Air 03/22/25 16:07 Medical Decision Making MDM Narrative Medical decision making narrative: Patient presents with nausea vomiting and diarrhea since 11 AM yesterday, patient reports symptoms were gradual in onset accompanied with low-grade fevers. She has been unable to take oral Tylenol for symptoms and admits to vomiting and having episodes of diarrhea with attempting to eat. She is concerned about dehydration and feels lightheaded with standing. We discussed her medical history and she admits to a longstanding history of headaches that are mild but frequent which she takes Motrin for. We discussed any eye exams as she works remote with [employer] for speech pathology and patient admits to having issues with her eyes but does not go into further detail. We discussed symptomatic treatment with labs and reevaluation. She has no known reason for symptoms such as bad food intake or ill exposure. Patient reevaluated after receiving first liter IV fluid bolus and Zofran she tolerated the Bentyl and Tylenol shortly after and Valium 2 mg through the IV along with Pepcid. Patient notes that her symptoms are improving she is feeling less nauseous we have ordered a second liter of IV fluids and another round of Zofran for her symptoms. She is much more talkative now than when she first arrived and admits that she is feeling better abdomen nonsurgical we will still await a urinalysis given her fever but discussed multiple potential causes with her GI distress and occasional cases of norovirus in the community. Patient agreeable to return to the ER should symptoms worsen or new symptoms develop. We discussed a clear liquid diet over the next 12 to 24 hours progressing to the brat foods. UA obtained showing white blood cells and leukocytes a urine culture is pending she will be placed on Keflex an abundance of caution given her history of fever and symptoms The patient is to followup with primary care physician in next 2 days or to return to the emergency department should any of the signs or symptoms worsen or new symptoms develop. Patient had questions answered. The patient agrees with the following Diagnosis and Treatment plan and the patient will be discharged home. Lab Data Labs: Lab Results 03/22/25 03/22/25 Range/Units 16:15 18:05 WBC 9.7 (4.0-11.0) 10^3/uL RBC 4.55 (4.20-5.40) 10^6/uL Hgb 13.5 (12.0-16.0) g/dL Hct 40.8 (36.0-48.0) % MCV 89.7 (81.0-99.0) fL MCH 29.7 (26.7-34.0) pg MCHC 33.1 (29.9-35.2) g/dL RDW 12.6 (11.0-15.0) % Plt Count 245 (150-450) 10^3/uL MPV 10.2 (9.5-13.5) fL Seg Neuts % (Manual) 91.0 H (43.0-75.0) Lymphocytes % (Manual) 8.0 L (20.5-60.0) % Monocytes % (Manual) 1.0 L (1.7-12.0) % Eosinophils % (Manual) 0.0 L (0.9-7.0) % Basophils % (Manual) 0.0 L (0.2-2.0) % Neutrophils # (Manual) 8.82 H (1.4-6.5) 10^3/uL Lymphocytes # (Manual) 0.77 L (1.20-3.80) 10^3/uL Monocytes # (Manual) 0.09 L (0.30-0.80) 10^3/uL Eosinophils # (Manual) 0.00 (0.00-0.70) 10^3/uL Basophils # (Manual) 0.00 (0.00-0.10) 10^3/uL Sodium 143 (136-145) mmol/L Potassium 3.4 L (3.5-5.1) mmol/L Chloride 102 (98-107) mmol/L Carbon Dioxide 29.5 (21.0-32.0) mmol/L Anion Gap 14.9 BUN 24.0 H (7.0-18.0) mg/dL Creatinine 0.68 (0.55-1.02) mg/dL Est GFR ( Amer) >60 (>=60 mL/min/1.73m^2) Est GFR (Non-Af Amer) >60 (>=60 mL/min/1.73m^2) BUN/Creatinine Ratio 35.3 Glucose 117 H (74-106) mg/dL Calcium 9.1 (8.5-10.1) mg/dL Total Bilirubin 0.8 (0.2-1.0) mg/dL AST 27 (15-37) U/L ALT 33 (14-59) U/L Alkaline Phosphatase 53 (46-116) U/L Troponin I High Sens <4.0 L (4.0-51.3) pg/mL Total Protein 7.3 (6.4-8.2) g/dL Albumin 4.0 (3.4-5.0) g/dL Globulin 3.3 g/dL Albumin/Globulin Ratio 1.2 Lipase 32.0 (16.0-77.0) U/L Serum HCG, Qual Negative (NEGATIVE) Urine Color Lt. yellow (YELLOW) Urine Clarity Clear (CLEAR) Urine pH 6.0 (5.0-9.0) Ur Specific [place] 1.010 (1.005-1.025) Urine Protein Negative (NEG/TRACE) mg/dL Urine Glucose (UA) Negative (NEGATIVE) mg/dL Urine Ketones 15 A (NEGATIVE) mg/dL Urine Occult Blood Trace-i (NEGATIVE) Urine Nitrite Negative (NEGATIVE) Urine Bilirubin Negative (NEGATIVE) Urine Urobilinogen 0.2 (0.2-1.0) EU/dL Ur Leukocyte Esterase Small A (NEGATIVE) Urine RBC 5-10 A (0-2) #/HPF Urine WBC 5-10 A (NONE SEEN) #/HPF Ur Squamous Epith Cells Few A (NONE/RARE) #/LPF Ur Transition Epith Cell Few A (NONE SEEN) #/LPF Urine Crystals None seen (None Seen) #/HPF Urine Bacteria Trace A (NONE SEEN) #/HPF Urine Casts None seen (NONE SEEN) #/LPF Urine Mucus None seen (NONE SEEN) Ur Culture Indicated? Yes-[facility] [place] ECG Data Attestation: I personally reviewed and interpreted this ECG as follows: Interpretation: EKG interpretation: Emergency Department physician interpretation, normal sinus rhythm 86 bpm, RBBB, , no ST segment elevation, normal axis. Discharge Plan Discharge Chief Complaint: Nausea/Vomiting/Diarrhea Clinical Impression: Nausea vomiting and diarrhea, UTI (urinary tract infection) Patient Disposition: Home, Self-Care Time of Disposition Decision: 19:07 Condition: Good Prescriptions / Home Meds: New ondansetron HCl 4 mg tablet 4 mg PO Q6H PRN (Reason: nausea and vomiting) Qty: 12 0RF dicyclomine 20 mg tablet 20 mg PO TID PRN (Reason: abdominal pain) 2 Days Qty: 6 0RF cephalexin 500 mg capsule 500 mg PO BID 5 Days Qty: 10 0RF No Action cefuroxime axetil 250 mg tablet doxepin 10 mg capsule Print Language: German Instructions: Acute Nausea and Vomiting (ED), Acute Diarrhea (ED) Additional Instructions: recommend appt with pcp in 2 days . return to ER if symptoms worsen Referrals: Reynold Underwood MD [Primary Care Provider, Family Practice] - As soon as possible
--- NOTE | 2025-03-22 16:24 | PC.NURSE ---
Pt presents to ER for abdominal pain, NVD Pt states she works from home and has not been around any sick individuals Pt states she began feeling unwell around 11am yesterday and has been vomiting since and is unable to tolerate anything by mouth Pt states she had a low grade fever yesterday that has worsened today Pt has no pertinent medical or surgical history to report Pt states she has vomited probably 6 times today and has diarrhea 3 times yesterday Pt states concern for dehydration due to weakness and dizziness Pt states she takes a lot of ibuprofen for constant headaches which she has not been evaluated for prior Pts at bedside
[2025-03-22 16:35] LABS: Hematocrit 40.8 % (36.0-48.0); Hemoglobin 13.5 g/dL (12.0-16.0); Mean Corpuscular HGB Conc 33.1 g/dL (29.9-35.2); Mean Corpuscular Hemoglobin 29.7 pg (26.7-34.0); Mean Corpuscular Volume 89.7 fL (81.0-99.0); Mean Platelet Volume 10.2 fL (9.5-13.5); Platelet Count 245 10^3/uL (150-450); Red Blood Count 4.55 10^6/uL (4.20-5.40); Red Cell Distribution Width 12.6 % (11.0-15.0); White Blood Count 9.7 10^3/uL (4.0-11.0)
[2025-03-22] MEDS: DIAZEPAM 10 MG/2 ML SYRINGE 2 MG IV (16:49)
[2025-03-22] MEDS: FAMOTIDINE/PF 20 MG/2 ML VIAL IV (16:49)
[2025-03-22] MEDS: KETOROLAC TROMETHAMINE 30 MG/ML VIAL 15 MG IVP (16:49)
[2025-03-22] MEDS: ONDANSETRON PF 4 MG/2 ML VIAL IV ×2 (16:49→18:03)
[2025-03-22] MEDS: 0.9 % SODIUM CHLORIDE 1,000 ML 999 ML IV ×2 (16:49→18:02)
[2025-03-22 16:51] LABS: HCG Qualitative NEGATIVE (NEGATIVE); Internal Control Within Normal Limits
[2025-03-22 16:52] LABS: Alanine Aminotransferase 33 U/L (14-59); Albumin Globulin Ratio 1.2; Alkaline Phosphatase 53 U/L (46-116); Anion Gap 14.9; Aspartate Amino Transferase 27 U/L (15-37); BUN Creatinine Ratio 35.3; Bilirubin Total 0.8 mg/dL (0.2-1.0); Calcium 9.1 mg/dL (8.5-10.1); Carbon Dioxide 29.5 mmol/L (21.0-32.0); Chloride 102 mmol/L (98-107); Estimated GFR (African America >60 (>=60 mL/min/1.73m^2); Estimated GFR (Non-African Ame >60 (>=60 mL/min/1.73m^2); Globulin 3.3 g/dL; Glucose 117 mg/dL (74-106); Potassium 3.4 mmol/L (3.5-5.1); Sodium 143 mmol/L (136-145); Total Protein 7.3 g/dL (6.4-8.2); Troponin I High Sensitivity <4.0 pg/mL (4.0-51.3)
[2025-03-22 16:57] LABS: Lymphocytes Absolute Manual 0.77 10^3/uL (1.20-3.80); Monocytes Absolute Manual 0.09 10^3/uL (0.30-0.80); Segmented Neut Absolute Manual 8.82 10^3/uL (1.4-6.5)
[2025-03-22] MEDS: DICYCLOMINE HCL 10 MG CAPSULE 20 MG PO (17:21)
[2025-03-22] MEDS: ACETAMINOPHEN 500 MG TABLET 1000 MG PO (17:21)
[2025-03-22 18:52] LABS: Bilirubin Urine NEGATIVE (NEGATIVE); Blood Urine TRACE-I (NEGATIVE); Clarity Urine CLEAR (CLEAR); Color Urine LT. YELLOW (YELLOW); Glucose Urine UA NEGATIVE (NEGATIVE); Ketones Urine 15 mg/dL (NEGATIVE); Leukocyte Esterase Urine SMALL (NEGATIVE); Nitrite Urine NEGATIVE (NEGATIVE); Protein Urine NEGATIVE (NEG/TRACE); Urobilinogen Urine 0.2 EU/dL (0.2-1.0)
[2025-03-22 19:03] LABS: Bacteria Urine TRACE #/HPF (NONE SEEN); Cast Seen? NONE SEEN #/LPF (NONE SEEN); Crystals Seen? None Seen #/HPF (None Seen); Mucus Urine NONE SEEN (NONE SEEN); Squamous Epithelial Cell Urine FEW #/LPF (NONE/RARE); Transitional Epi Cells Urine FEW #/LPF (NONE SEEN); Urine Culture Indicated YES-FRMC
[2025-03-22] MEDS: ONDANSETRON 4 MG RAPDIS TABLET SL (20:00)
[2025-03-22] MEDS: CEPHALEXIN 500 MG CAPSULE PO (20:00)
== END 2025-03-22 20:09 | disposition home or self-care (01) ==
PROVIDERS: Personal Emergency Response Attendant; Emergency Provider Emergency Medicine; PCP Family Medicine
DX: R11.2 Nausea with vomiting, unspecified (principal); R19.7 Diarrhea, unspecified; N39.0 Urinary tract infection, site not specified; R50.9 Fever, unspecified; R42 Dizziness and giddiness
CPT/HCPCS: 36415; 80053; 81001; 83690; 84484; 84703; 85007; 85027; 87086; 87088; 87106; 87186; 93005; 96361; 96374; 96375; 96376; 99285; J1885; J2405; J3360; J3490; Q0162

== ENCOUNTER 2025-09-22 09:40 | Outpatient (OUT) | payer BC, SELFPAY ==
--- OUTSIDE RECORDS SUMMARY | 2025-09-22 09:55 | XMS_ITS | CCD ---
Author Organization [facility] Care Team Providers Care [employer] Prevention Specialist Name Role Phone KHUSHI VELAZCO Referring Unavailable YADIRA MILLAN Primary Care Unavailable KHUSHI VELAZCO Referring Unavailable YADIRA MILLAN Primary Care Unavailable Yadira Millan MD Primary Care Provider [phone] DR YADIRA MILLAN Admitting Unavailable HOY, DR MAY Attending Unavailable ROSANAY, DR MAY Primary Care Unavailable HOY, DR AMY Admitting Unavailable HOY, DR MAY Attending Unavailable HOY, DR MAY Primary Care Unavailable HOY, DR MAY Consulting Unavailable HOY, DR MAY Admitting Unavailable HOY, DR MAY Attending Unavailable ROSANAY, DR MAY Primary Care Unavailable HOY, DR MAY Consulting Unavailable CLAUS LOCKWOOD Admitting Unavailable CLAUS LOCKWOOD Attending Unavailable MONTY, DR MAY Primary Care Unavailable ROSANAY, DR MAY Admitting Unavailable HOY, [...] MONTY, DR MAY Primary Care Unavailable YADIRA MILLAN Primary Care Unavailable KHUSHI VELAZCO Attending Unavailable Yadira Millan MD Primary Care Provider [phone] Unavailable Primary Care Provider UnavailManfred Santacruz DO D Attending Provider [phone] Manfred Baltazar Attending Unavailable Manfred Baltazar Admitting Unavailable KAYLYN MATTA Attending Unavailable KAYLYN MATTA Attending Unavailable Allergies Allergy ClassificationReported Allergen(s)Allergy TypeDate of OnsetReaction(s) Facility (1 source)PenicillinsDrug Psvldma71-02-7245[facility] Medications Current Medications MedicationDrug Class(es)DatesSig (Normalized)Sig (Original)benzoyl peroxide 0.05 mg/mg / clindamycin 0.01 mg/mg topical gel (10 sources)Lincosamide AntibacterialStart: 01-03-2024 End: 96-16-1112bdooquszynb-benzoyl peroxide (BenzaClin) gel Indications: Acne vulgaris Apply thin layer to face, once daily in the morning, 30 day supply 50 g 11 02/17/2025 ActiveStart: 29-49-7483Tlnhlovnhiu-Benzoyl Peroxide 1-5 % gel Use as directed. 0 04/14/2015 ActiveComment on above:Use as directed.Clascoterone (Winlevi) 1 % cream (5 sources)Start: 06-03-4955Hcfteuwwcssg (Winlevi) 1 % cream Indications: Acne vulgaris Apply to face bid 60 g 11 02/17/2025 Activedoxepin hydrochloride 10 mg oral capsule (1 source)Tricyclic AntidepressantStart: 84-69-5569voma 1 capsule by mouth every 30 days at bedtimedoxepin (SINEquan) 10 MG capsule TAKE 1-2 CAPSULES BY MOUTH AT BEDTIME 30 DAYS 02/28/2025 Activedoxycycline hyclate 100 mg oral capsule (1 source)Tetracycline-class DrugStart: 02-77-6101ovyn 1 capsule by mouth once dailyDoxycycline Hyclate 100 mg Capsule Active 100 MG PO Daily October 11, 2017 1:00amfamotidine 20 mg oral tablet (1 source)Histamine-2 Receptor AntagonistStart: 40-32-9365uvba 1 tablet by mouth twice dailyFamotidine (Pepcid) 20 mg Tablet Active 20 MG PO Twice daily October 11, 2017 1:00amfluocinonide 0.5 mg/ml topical solution (1 source)CorticosteroidStart: 60-61-6208ukdtiopjqlln (Lidex) 0.05 % external solution Indications: Lichen planopilaris Apply to affected areas on the scalp, up to twice a day when flared, 30 day supply 60 mL 11 08/13/2025 Active spironolactone 50 mg oral tablet (3 sources)Aldosterone AntagonistStart: 64-48-1310mtpv 1 tablet by mouth once dailySpironolactone (Aldactone) 50 mg Tablet Active 50 MG PO Daily October 11, 2017 1:00amStart: 20-71-5144xnmr 1 tablet by mouth twice daily spironolactone (ALDACTONE) 50 mg tablet Take 1 tablet by mouth twice daily. 0 06/18/2015 ActiveComment on above:Take 1 tablet by mouth twice daily.sucralfate 1000 mg oral tablet (1 source)Aluminum ComplexStart: 05-60-4824cxtv 1 tablet by mouth twice daily Sucralfate (Carafate) 1 gram Tablet Active 1 GM PO Twice daily October 11, 2017 1:00am Completed/Discontinued Medications MedicationDrug Class(es)DatesSig (Normalized)Sig (Original)cefuroxime 250 mg oral tablet (14 sources)Cephalosporin AntibacterialStart: 01-03-2024 End: 99-85-5440pknz 1 tablet by mouth once dailycefuroxime (Ceftin) 250 MG tablet Indications: Acne vulgaris Take 1 tablet, by mouth, once daily, 30 days 30 tablet 02/02/2025 08/13/2025 Discontinued (Duplicate order)ferrous sulfate 325 mg oral tablet (2 sources)take 1 tablet by mouth once daily at breakfastferrous sulfate (FEROSUL) 325 mg (65 mg iron) tablet Take 325 mg by mouth daily with breakfast. 0 ActiveComment on above:Take 325 mg by mouth daily with breakfast.minocycline 50 mg oral capsule (2 sources)Tetracycline-class Drugtake 1 capsule by mouth twice dailyminocycline (MINOCIN, DYNACIN) 50 mg capsule Take 50 mg by mouth twice daily. 0 Active Comment on above:Take 50 mg by mouth twice daily. Problems Active Problems Problem ClassificationProblemDateDocumented DateEpisodic/ChronicDeficiency and other anemia (5 sources)Anemia, unspecified; Translations: [ANEMIA UNSPECIFIED]Onset: 30-41-4400VhdyzvurNdwqhlvd mellitus without complication (1 source)Other abnormal glucose; Translations: [OTHER ABNORMAL GLUCOSE]Onset: 53-00-2247IusuveepJtwhbwefhp disorders (1 source)Gastroesophageal reflux disease; Translations: [Gastro-esophageal reflux disease without esophagitis]30-46-6786DytkvobZhchiro on above:Problem List clean-up per request of Phys. EHR CmteEsophageal disorders (1 source)Esophagitis; Translations: [Esophagitis]53-64-8120PqswyztkNyiwyzp on above:Problem List clean-up per request of Phys. EHR CmteImmunizations and screening for infectious disease (4 sources)Other specified abnormal immunological findings in serum; Translations: [Anti-nuclear factor positive]Onset: 257208-22-2885Avenfxrl Nutritional deficiencies (1 source)Vitamin D deficiency, unspecified; Translations: [VITAMIN D DEFICIENCY UNSPECIFIED]Onset: 95-76-6442PiwukvlEaxuzfxqiyg deficiencies (1 source)Iron deficiency; Translations: [IRON DEFICIENCY]Onset: 08-27-2022 EpisodicOsteoarthritis (2 sources)Arthritis; Translations: [Unspecified osteoarthritis, unspecified site]Onset: 860614-18-1713LxikzksEtwhl inflammatory condition of skin (1 source)Lichen planopilaris; 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]08-13-2025 EpisodicOther skin disorders (3 sources)Acne vulgaris; Translations: [Acne vulgaris]44-51-4946Vcmtpmvn Residual codes; unclassified (1 source)Other insomnia; Translations: [OTHER INSOMNIA]Onset: 48-88-3935Vdlkvxc Syncope (4 sources)Syncope and collapse; Translations: [SYNCOPE AND COLLAPSE]Onset: 72-39-5160NcwrsikoStodczbwsxzu (3 sources)CONTACT W/AND (SUSP) EXPOS COVID-19; Translations: [CONTACT W/AND (SUSP) EXPOS COVID-19]Onset: 09-10-2021 Past or Other Problems Problem ClassificationProblemDateDocumented DateEpisodic/ChronicAcute bronchitis (1 source)Acute bronchitis, unspecified; Translations: [ACUTE BRONCHITIS UNSPECIFIED]Onset: 33-09-1540SmwshidvRhckluq and fatigue (2 sources)Malaise and fatigue; Translations: [Other malaise]Onset: 09-21-2017 85-39-3639HodybhhzWqmbhwfxyzih (1 source)CONTACT W/AND (SUSP) EXPOS COVID-19; Translations: [CONTACT W/AND (SUSP) EXPOS COVID-19]Onset: 09-02-2021 Results Test NameValueInterpretationReference RangeFacilityUrine Cultureon 03-22-2025 Bacteria identified Cx Nom (U)ORGANISM: Escherichia coli (ESBL) (O:ESCCOLESBL) [place] Count 50,000 ORGANISM: Strep agalactiae - (group b) (O:STRAGA) [place] Count 20,000 Aerobic JENI Charge (NMIC56) SUSCEPTIBILITY ORGANISM: O:ESCCOLESBL ANTIBIOTIC INTERPRETATION JENI Amikacin S <16 Amoxacillin/K Clavulanate S <8 Ampicillin R >16 Ampicillin/Sulbactam S 88/4 Aztreonam R >16 Cefazolin R >16 Cefepime R >16 Ceftazidime R 16 Ceftazidime/Avibactam S <4 Ceftolozane/Tazobactam S <2 Ceftriaxone R >32 Cefuroxime R >16 Ciprofloxacin S <0.25 Ertapenem S <0.5 Gentamicin S <2 Levofloxacin S <0.5 Meropenem S <1 Meropenem/Vaborbactam S <2 Nitrofurantoin S <32 Piperacillin/Tazobactam S <8 Tetracycline S <4 Tigecycline S <2 Tobramycin S <2 Trimethoprim/Sulfamethoxazole S <0.5 S = SUSCEPTIBLE I = INTERMEDIATE R = RESISTANT BLANK = DATA NOT AVAILABLE, OR DRUG NOT ADVISABLE OR TESTED R* = RESISTANCE DUE TO EXTENDED SPECTRUM BETA-LACTAMASES ESBL = EXTENDED SPECTRUM BETA-LACTAMASE TFG = THYMIDINE-DEPENDENT STRAIN JOSE RAMON = BETA-LACTAMASE POSITIVE IB = INDUCIBLE BETA-LACTAMASE. APPEARS IN PLACE OF 'S' WITH SPECIES KNOWN TO POSSESS INDUCIBLE BETA-LACTAMASES. POTENTIALLY THEY MAY BECOME RESISTANT TO ALL B-LACTAM DRUGS. PERFORMED BY: [address] [place] [address] PATHOLOGIST GEOMETRY TEACHER KIRSTY RIOS M.D.NormalHca Florida South Shore Hospital Physician GroupComment on above: Performed By: #### CUU #### [facility] [address] AUTO DIFFon 31-00-1441EFHO #0.0 103/ulNormal0.0-0.1The [facility] HospitalComment on above:Performed By: #### SEDR #### [facility] [address] [place] [address] Dr. Heather DayBasophils/100 WBC (Bld)0.6 %Normal0.2-2.0[facility] Comment on above:Performed By: #### SEDR #### [facility] [address] [place] [address] Dr. Heather Romero #0.2 103/ulNormal0.0-0.7The [facility] HospitalComment on above: Performed By: #### SEDR #### [facility] [address] [place] [address] Dr. Heather Burnsosinophils/100 WBC (Bld)3.2 %Normal0.9-7.0[facility] Comment on above:Performed By: #### SEDR #### [facility] [address] [place] [address] Dr. Heather Burnsrythrocyte distribution width (RBC) [Ratio]12.3 %Tvycle09.0-15.0 [facility]itt[facility] Medical CenterComment on above:Performed By: #### SEDR #### [facility] [address] [place] [address] Dr. Heather DayHematocrit (Bld) [Volume fraction]38.6 %Rsxzmz31.0-48.0[facility]itt[facility] Medical CenterComment on above:Performed By: #### SEDR #### [facility] [address] [place] [address] Dr. Heather DayHemoglobin (Bld) [Mass/Vol]12.7 g/xQUnjzgd63.0-16.0The [facility] HospitalComment on above:Performed By: #### SEDR #### [facility] [address] [place] [address] Dr. Heather Pollard #0.02 10e3/ulNormal0.00-0.03The [facility] HospitalComment on above:Performed By: #### SEDR #### [facility] [address] [place] [address] Dr. Heather Pollard %0.3 %Normal0.0-0.5The [facility] HospitalComment on above: Performed By: #### SEDR #### [facility] [address] [place] [address] Dr. Heather Palencia #2.6 103/ulNormal1.2-3.8The [facility] HospitalComment on above:Performed By: #### SEDR #### [facility] [address] [place] [address] Dr. Haether Brownleehocytes/100 WBC (Bld)36.0 %Erlodh53.5-60.0The [facility] HospitalComformerly [facility] on above:Performed By: #### SEDR #### [facility] [address] [place] [address] Dr. Heather ParkUAL DIFF REQNONormalThe [facility] HospitalComment on above: Performed By: #### SEDR #### [facility] [address] [place] [address] Dr. Heather Wyatt (RBC) [Entitic mass]29.7 flPmkabe47.7-34.0The [facility] HospitalComment on above:Performed By: #### SEDR #### [facility] [address] [place] [address] Dr. Heather Wyatt (RBC) [Mass/Vol]32.9 g/kTMvpbih20.9-35.2The [facility] HospitalComment on above:Performed By: #### SEDR #### [facility] [address] [place] [address] Dr. Heather Wyatt (RBC) [Entitic vol]90.2 rIIoscby27.0-99.0The [facility] HospitalComment on above:Performed By: #### SEDR #### [facility] [address] [address] [address] Heather Isaac #0.5 103/ulNormal0.3-0.8The [facility] HospitalComment on above:Performed By: #### SEDR #### [facility] [address] [place] [address] Dr. Heather Whitneyocytes/100 WBC (Bld)6.8 %Normal1.7-12.0[facility] Comment on above:Performed By: #### SEDR #### [facility] [address] [place] [address] Dr. Heather Reyes #3.8 103/ulNormal1.4-6.5The [facility] HospitalComment on above:Performed By: #### SEDR #### [facility] [address] [place] [address] Dr. Heather Simmonsutrophils/100 WBC (Bld)53.1 %Achtzo04.0-75.0The [facility] HospitalComment on above:Performed By: #### SEDR #### [facility] [address] [place] [address] Dr. Heather Newtonlet mean volume (Bld) [Entitic vol]10.1 fLNormal9.5-13.5The [facility] HospitalComment on above:Performed By: #### SEDR #### [facility] [address] [place] [address] Dr. Heather DayPLT309 103/khTlbgzm204-540Yhw [facility] HospitalComment on above: Performed By: #### SEDR #### [facility] [address] [place] [address] Dr. Heather DayRBC4.28 106/ulNormal4.20-5.40The [facility] HospitalComment on above:Performed By: #### SEDR #### [facility] [address] [place] [address] Dr. Heather DayWBC7.1 103/ulNormal4.0-11.0The [facility] HospitalComment on above: Performed By: #### SEDR #### [facility] [address] [place] [address] Dr. Heather DayFERRITINeladio 09-99-2646Kbodannq [Mass/Vol]60.0 ng/mLNormal8.0-252.0 The [facility] HospitalComment on above:Performed By: #### FERR, IRON #### [facility] [address] [place] [address] Dr. Heather Sterling 37-02-2342Efqw [Mass/Vol]66.0 ug/lORctltp55.0-170.0[facility] Medical CenterComment on above:Performed By: #### FERR, IRON #### [facility] [address] [place] [address] Dr. Heather DayBETA 2 GLYCOPROTEIN, IGGon 48-92-8553Xgrf 2 glycoprotein 1 IgG IA Qn<9Normal<20Avon HospitalComment on above:Order Comment: Specimen Type: BLOOD SPECIMEN Ordering Facility: [facility] Address: [address] [place], [place] [address]Result Comment: <20 SGU Negative 20-80 SGU Low Positive >80 SGU High Positive These results were obtained with the Modebova QUANTA Lite B2 GPI IgG LISSETTE. B2 GPI IgG values obtainedwith different manufacturers' assay methods may not be used interchangeably. The magnitude of the reported IgG levels cannot be correlated to an endpoint titer.Performed By: #### CARDIG, BETA2M, BETA2G, 5076-5, CARDIM #### [facility] CLIA [id number] [address] [place] [address] OF [facility] HOSPITALBETA 2 GLYCOPROTEIN, IGMon 35-03-3913Ggzk 2 glycoprotein 1 IgM IA Qn<9Normal<20Avon HospitalComment on above:Order Comment: Specimen Type: BLOOD SPECIMENOrdering Facility: [facility] Address:[address] [place], [place] [address]Result Comment: <20 SMU Negative 20-80 SMU Low Positive >80 SMU High positive These results were obtained with the Inova QUANTA Lite B2 GPI IgM LISSETTE. B2 GPI IgM values obtainedwith different manufacturers' assay methods may not be used interchangeably. The magnitude of the reported IgM levels cannot be correlated to an endpoint titer.Performed By: #### MARCELLE TEMPLE BETA2G, 5076-5, ALLYSON ####[facility] [id number] [address] STATES OF AMERICAC3 SerPl-mCncon 08-10-2022 Complement C3 [Mass/Vol]130 mg/jCSglnej64-209Ltpa HospitalComment on above:Order Comment: Specimen Type: BLOOD SPECIMEN Ordering Facility: [facility] Address: [address] [place], [place] [address]Performed By: #### 4498-2, 4485-9 #### [facility] CLIA [id number] [address] [place] [address] STATES OF [facility] HOSPITALC4 SerPl-mCncon 08-10-2022 Complement C4 [Mass/Vol]28 mg/mEXiownp41-53Nabc HospitalComment on above:Order Comment: Specimen Type: BLOOD SPECIMEN Ordering Facility: [facility] Address: [address] [place], [place] [address]Performed By: #### 4498-2, 4485-9 #### [facility] CLIA [id number] [address] [place] [address] STATES OF AMERICACARDIOLIPIN IGG ABSon 38-25-1289Mzydgxzapoo IgG IA Qn (S)<9.0Normal<15.0Avon HospitalComment on above: Order Comment: Specimen Type: BLOOD SPECIMENOrdering Facility: [facility] Address:[address] [place], [place] [address]Result Comment: <15 GPL Negative 15-20 GPL Indeterminate >20 GPL Positive The following results were obtained with the NanoVibronix QUANTA Lite TIFFANIE IgG III LISSETTE. Cardiolipin IgG values obtained with the different manufacturers' assay methods may not be used interchangeably. The magnitude of the reported IgG levels cannot be correlated to an endpoint titer.Performed By: #### MARCELLE TEMPLE, BETA2G, 5076-5, CARDIM ####[facility] [id number] [place] [address] [place] CARDIOLIPIN IGM ABSon 79-19-1240Zaaqfffiqnq IgM IA Qn (S)9.1 MPLNormal<12.5Avon HospitalComment on above:Order Comment: Specimen Type: BLOOD SPECIMENOrdering Facility: [facility] Address:[address] [place], [place] [address]Result Comment: <12.5 MPL Negative 12.5-20 MPL Indeterminate >20 MPL Positive The following results were obtained with the Stage I DiagnosticsA Ocean Butterfliese TIFFANIE IgM III LISSETTE. Cardiolipin IgM values obtained with the different manufacturers' assay methods may not be used interchangeably. The magnitude of the reported IgM levels cannot be correlated to an endpoint titer. ???Performed By: #### CARDIG, BETA2M, BETA2G, 5076-5, CARDIM ####[facility] [id number] [place] [address] [place] AMERICACB W Auto Differential panel (Bld)on 08-10-2022 Basophils (Bld) [#/Vol]0.03 10*3/uLNormal<0.11Avon HospitalComment on above: Order Comment: Specimen Type: BLOOD SPECIMEN Ordering Facility: [facility] Address: [address] [place], [place] [address]Performed By: #### 03000-6 #### [facility] CLIA [id number] [address] [place] [address] [place] AMERICABasophils/100 WBC (Bld)0.4 %NormalAvon HospitalComment on above:Order Comment: Specimen Type: BLOOD SPECIMEN Ordering Facility: [facility] Address: [address] [place], [place] [address]Performed By: #### 24035-4 #### [facility] CLIA [id number] [address] [place] [address] [place] AMERICADifferential cell count method Nom (Bld) AutoNormalAvon HospitalComment on above:Order Comment: Specimen Type: BLOOD SPECIMEN Ordering Facility: [facility] Address: [address] [place], [place] [address]Performed By: #### 10068-8 #### [facility] IA [id number] [address] [place] [address] [place] AMERICAEosinophils (Bld) [#/Vol]0.13 10*3/uL Normal<0.46Av HospitalComment on above:Order Comment: Specimen Type: BLOOD SPECIMEN Ordering Facility: [facility] Address: [address] [place], [place] [address]Performed By: #### 61641-4 #### [facility] IA [id number] [address] [place] [address] [place] AMERICAEosinophils/100 WBC (Bld)1.6 %NormalAv HospitalComment on above:Order Comment: Specimen Type: BLOOD SPECIMEN Ordering Facility: [facility] Address: [address] [place], [place] [address]Performed By: #### 19641-3 #### [facility] IA [id number] [place] [address] [place] OF AMERICAErythrocyte distribution width (RBC) [Ratio]12.4 %Cshome87.5-15.0Av HospitalComment on above:Order Comment: Specimen Type: BLOOD SPECIMEN Ordering Facility: [facility] Address: [address] [place], [place] [address]Performed By: #### 58730-9 #### [facility] IA [id number] [address] [place] [address] [place] AMERICAHematocrit (Bld) [Volume fraction]41.6 % Lvtiho96.0-46.0Av HospitalComment on above:Order Comment: Specimen Type: BLOOD SPECIMEN Ordering Facility: [facility] Address: [address] [place], [place] [address]Performed By: #### 60817-9 #### [facility] CLIA [id number] [address] [place] [address] [place] AMERICAHemoglobin (Bld) [Mass/Vol]13.4 g/dL Buflbz38.5-15.5Avo HospitalComment on above:Order Comment: Specimen Type: BLOOD SPECIMEN Ordering Facility: [facility] Address: [address] [place], [place] [address]Performed By: #### 74970-0 #### [facility] IA [id number] [address] [place] [address] [place] AMERICAImmature granulocytes (Bld) [#/Vol] 10*3/uLNormal<0.10Avon HospitalComment on above:Order Comment: Specimen Type: BLOOD SPECIMEN Ordering Facility: [facility] Address: [address] [place], [place] [address]Performed By: #### 72615-8 #### [facility] IA [id number] [address] [place] [address] [place] AMERICAImmature granulocytes/100 WBC (Bld)0.2 % NormalAv HospitalComment on above:Order Comment: Specimen Type: BLOOD SPECIMEN Ordering Facility: [facility] Address: [address] [place], [place] [address]Performed By: #### 03301-5 #### [facility] IA [id number] [address] [place] [address] [place] AMERICALymphocytes (Bld) [#/Vol]2.36 10*3/uL Normal1.00-4.00Av HospitalComment on above:Order Comment: Specimen Type: BLOOD SPECIMEN Ordering Facility: [facility] Address: [address] [place], [place] [address]Performed By: #### 50796-1 #### [facility] IA [id number] [address] [place] [address] [place] AMERICALymphocytes/100 WBC (Bld)28.3 %NormalAv HospitalComment on above:Order Comment: Specimen Type: BLOOD SPECIMEN Ordering Facility: [facility] Address: [address] [place], [place] [address]Performed By: #### 96818-9 #### [facility] IA [id number] [address] [place], [place] [id number] [place] [address] (RBC) [Entitic mass]30.0 pgNormal 26.0-34.0Avon HospitalComment on above:Order Comment: Specimen Type: BLOOD SPECIMEN Ordering Facility: [facility] Address: [address] [place], [place] [address]Performed By: #### 09480-6 #### [facility] IA [id number] [address] (RBC) [Mass/Vol]32.2 g/dLNormal 30.5-36.0Avon HospitalComment on above:Order Comment: Specimen Type: BLOOD SPECIMEN Ordering Facility: [facility] Address: [address] [place], [place] [address]Performed By: #### 78773-4 #### [facility] IA [id number] [address] (RBC) [Entitic vol]93.1 fLNormal 80.0-100.0Avon HospitalComment on above:Order Comment: Specimen Type: BLOOD SPECIMEN Ordering Facility: [facility] Address: [address] [place], [place] [address]Performed By: #### 15944-7 #### [facility] IA [id number] [address] [place], [place] [id number] [place], [place] [address]Monocytes (Bld) [#/Vol]0.62 10*3/uLNormal <0.87Av HospitalComment on above:Order Comment: Specimen Type: BLOOD SPECIMEN Ordering Facility: [facility] Address: [address] [place], [place] [address]Performed By: #### 94986-0 #### [facility] IA [id number] [address] [place] [address] [place] AMERICAMonocytes/100 WBC (Bld)7.4 %NormalAv HospitalComment on above:Order Comment: Specimen Type: BLOOD SPECIMEN Ordering Facility: [facility] Address: [address] [place], [place] [address]Performed By: #### 05590-8 #### [facility] IA [id number] [address] [place] [address] [place] AMERICANeutrophils (Bld) [#/Vol]5.19 10*3/uL Normal1.45-7.50Av HospitalComment on above:Order Comment: Specimen Type: BLOOD SPECIMEN Ordering Facility: [facility] Address: [address] [place], [place] [address]Performed By: #### 06710-4 #### [facility] IA [id number] [place], [place] [address] [place] AMERICANeutrophils/100 WBC (Bld)62.1 %NormalAv HospitalComment on above:Order Comment: Specimen Type: BLOOD SPECIMEN Ordering Facility: [facility] Address: [address] [address] [place], [place] [address]Performed By: #### 86390-1 #### [facility] [place] [id number] [place] [address] [place] OF AMERICANucleated RBC (Bld) [#/Vol]10*3/uLNormal <0.01Av HospitalComment on above:Order Comment: Specimen Type: BLOOD SPECIMEN Ordering Facility: [facility] Address: [address] [place], [place] [address]Performed By: #### 83716-7 #### [facility] [place] [id number] [place] [address] [place] AMERICANucleated RBC/100 WBC (Bld) [Ratio]0.0 /100 WBCNormalAvon HospitalComment on above:Order Comment: Specimen Type: BLOOD SPECIMEN Ordering Facility: [facility] Address: [address] [place], [place] [address]Performed By: #### 34282-1 #### [facility] [place] [id number] [place] [address] [place] AMERICAPlatelet mean volume (Bld) [Entitic vol] 10.3 fLNormal9.0-12.7Avon HospitalComment on above:Order Comment: Specimen Type: BLOOD SPECIMEN Ordering Facility: [facility] Address: [address] [place], [place] [address]Performed By: #### 08561-0 #### [facility] [place] [id number] [facility] [facility] [place] [address] [place] AMERICAPlatelets (Bld) [#/Vol]326 10*3/uLNormal 150-400Av HospitalComment on above:Order Comment: Specimen Type: BLOOD SPECIMEN Ordering Facility: [facility] Address: [address] [place], [place] [address]Performed By: #### 67876-1 #### [facility] IA [id number] [facility] [place] [place] [address] [place] INOVA ALEXANDRIA HOSPITALRBC (Bld) [#/Vol]4.47 10*6/uLNormal 3.90-5.20Av HospitalComment on above:Order Comment: Specimen Type: BLOOD SPECIMEN Ordering Facility: [facility] Address: [address] [place] [phone] By: #### 69370-8 #### [facility] [place] [id number] [facility] [facility] [place] [address] [place] [facility] COUNTY HOSPITALWBC (Bld) [#/Vol]8.35 10*3/uLNormal 3.70-11.00Av HospitalComment on above:Order Comment: Specimen Type: BLOOD SPECIMEN Ordering Facility: [facility] Address: [address] [place] [phone] By: #### 41074-5 #### [facility] [place] [id number] [address] [place] [address] [facility]ENTERCK SerPl-cCncon 97-42-4295KB [Catalytic activity/Vol]56 U/ABtquvo97-574Rgdd HospitalComment on above:Order Comment: Specimen Type: BLOOD SPECIMEN Ordering Facility: [facility] Address: [address] [place] [address]Vxxnoffwk By: #### 2157-6 #### [facility] CLIA [id number] [facility] [place] [address] [facility] CENTERCNOVon 12-14-5745BKSMXocfno Visit (RHEUAV) DONTAE VIVEROS ([id number]) 1970 F Date Time Provider Department 08/10/22 [...] as follows: -Sep 2017: was evaluated by area operations director Dr. Donald Ty (with edits for brevity [...] (+)fatigue HEENT: Positive for: Mouth sores (see [place]) Negative for: Trouble swallowing and Dry mouth [...] for: Eye dryness Negativ (more content not included)...Normal [facility] SpringfieldCardiolipin IgA Ser IA-aCncon 97-07-4991Adqauzglrcm IgA IA Qn (S)<9.0Normal<12.0Avon HospitalComment on above:Order Comment: Specimen Type: BLOOD SPECIMENOrdering Facility: [facility] Address:[address] [place], [place] [address]Result Comment: <12 APL Negative 12-20 APL Indeterminate >20 APL Positive The following results were obtained with the [employer] QUANTA Lite TIFFANIE IgA III LISSETTE. Cardiolipin IgA values obtained with the different manufacturers' assay methods may not be used interchangeably. The magnitude of the reported IgA levels cannot be correlated to an endpoint titer.Performed By: #### MARCELLE TEMPLE, FADY, 5076-5, ALLYSON ####[facility] [id number] [place] [address] [place] LUPUS PANELon 37-97-8722jSPW Coag (Bld) [Time]30.3 kRufnpm39.0-35.1[facility] Comment on above:Order Comment: Specimen Type: BLOOD SPECIMEN Ordering Facility: [facility] Address: [address] [place], [place] [address]Performed By: #### LUPPL #### [facility] CLIA [id number] [address] [place] [address] [place] AMERICAaPTT W excess hexagonal phase phospholipid Coag (PPP) [Time]46.5 jteyfbpCypjxe34.0-51.8[facility] Comment on above:Order Comment: Specimen Type: BLOOD SPECIMEN Ordering Facility: [facility] Address: [address] [place], [place] [address]Performed By: #### LUPPL #### [facility] CLIA [id number] [address] [place] [address] [place] AMERICADelta dRVVT Coag (PPP) [Time diff]1.3 delta secondsNormal<7.1Avon HospitalComment on above:Order Comment: Specimen Type: BLOOD SPECIMEN Ordering Facility: [facility] Address: [address] [place], [place] [address]Performed By: #### LUPPL #### [facility] CLIA [id number] [address] [place] [address] [place] AMERICAdRVVT Coag (PPP) [Time]38.6 tJilzdi23.0-45.7Avon HospitalComment on above:Order Comment: Specimen Type: BLOOD SPECIMEN Ordering Facility: [facility] Address: [address] [place] [address]Performed By: #### LUPPL #### [facility] CLIA [id number] [address] [place] [address] [place] AMERICAdRVVT factor substitution immediately after 1:2 addition of normal plasma Coag (PPP) [Time]37.4 seconds Nerlhn98.0-45.7Avon HospitalComment on above:Order Comment: Specimen Type: BLOOD SPECIMEN Ordering Facility: [facility] Address: [address] [place], [place] [address]Performed By: #### LUPPL #### [facility] IA [id number] [address] [place] [address] [place] AMERICAdRVVT W excess hexagonal phase phospholipid actual/normal Coag (PPP) [Relative time]45.1 secondsNormal 34.2-47.9Avon HospitalComment on above:Order Comment: Specimen Type: BLOOD SPECIMEN Ordering Facility: [facility] Address: [address] [place], [place] [address]Performed By: #### LUPPL #### [facility] IA [id number] [address] [place] [address] [place] AMERICAdRVVT/dRVVT.excess phospholipid Coag (PPP) [Ratio]1.06Normal<1.32Avon HospitalComment on above: Order Comment: Specimen Type: BLOOD SPECIMEN Ordering Facility: [facility] Address: [address] [place], [place] [address]Performed By: #### LUPPL #### [facility] IA [id number] [address] [place] [address] [place] AMERICALupus anticoagulant neutralization platelet Coag Ql (PPP)NegativeNormalNegativeAvon HospitalComment on above:Order Comment: Specimen Type: BLOOD SPECIMEN Ordering Facility: [facility] Address: [address] [place], [place] [address]Performed By: #### LUPPL #### [facility] IA [id number] [address] [place] [address] [place] AMERICAThrombin time Coag (PPP) [Time]16.8 secondsNormal<18.6Avon HospitalComment on above:Order Comment: Specimen Type: BLOOD SPECIMEN Ordering Facility: [facility] Address: [address] [place], [place] [address]Performed By: #### LUPPL #### [facility] [place] [id number] [address] [place] [address] [facility] CENTERPT panel Coag (PPP)on 31-21-7692IGQ Coag (PPP) [Relative time]1.0 {INR}Normal0.9-1.3Athe [facility] Comment on above:Order Comment: Specimen Type: BLOOD SPECIMEN Ordering Facility: [facility] Address: [address] [place] [phone] Comment: Vitamin K Antagonist (VKA) Therapeutic Range: INR 2 to 3 (Target INR of 2.5) Note: For patients treated with VKA drugs, such as warfarin, the [place] [employer] 2012 Guideline recommends [...] Chest 2012, 141:7S-47S Eugenio RA, et al. [facility] 2017, 70: 252-289Performed By: #### 17922-3, 83888-3 #### [facility] CLIA [id number] [address] [place] [address] [place] [facility] CENTERPT Coag (PPP) [Time]10.4 sNormal9.7-13.[address] [facility] [facility] HospitalComment on above:Order Comment: Specimen Type: BLOOD SPECIMEN Ordering Facility: [facility] Address: [address] [place] [address]Gohvckorj By: #### 16446-0, 51266-7 #### [facility] CLIA [id number] [address] [place] [address] [facility] CENTERURINALYSIS, DIPSTICK ONLYon 08-10-2022 Bilirubin Ql (U)NegativeNormalNegativePeoria HospitalComment on above:Order Comment: Specimen Type: URINE SPECIMENOrdering Facility: [facility] Address:[address] [place], [place] [address]Performed By: #### UA ####[facility] [id number] [place] [address] [place] AMERICAClarity (Unsp spec)ClearNormalClearAvon HospitalComment on above:Order Comment: Specimen Type: URINE SPECIMENOrdering Facility: [facility] Address:[address] [place], [place] [address]Performed By: #### UA ####[facility] [id number] [place] [address] [place] AMERICAColor (U)Yellow NormalYellowAvon HospitalComment on above:Order Comment: Specimen Type: URINE SPECIMENOrdering Facility: [facility] Address:[address] [place], [place] [address]Performed By: #### UA ####[facility] [id number] [place] [address] [place] Glucose Test strip (U) [Mass/Vol]NegativeNormalNegativeAvon HospitalComment on above:Order Comment: Specimen Type: URINE SPECIMENOrdering Facility: [facility] Address:[address] [place], [place] [address]Performed By: #### UA ####[facility] [id number] [place] [address] [place] AMERICAHemoglobin Ql (U)NegativeNormal NegativeAvon HospitalComment on above:Order Comment: Specimen Type: URINE SPECIMENOrdering Facility: [facility] Address:[address] [place], [place] [address]Performed By: #### UA ####[facility] [id number] [place] [address] [place] Ketones Ql (U)TraceAbnormalNegativeAvon HospitalComment on above:Order Comment: Specimen Type: URINE SPECIMENOrdering Facility: [facility] Address:[address] [place], [place] [address]Performed By: #### UA ####[facility] [id number] [place] [address] [facility] COUNTY HOSPITALLeukocyte esterase Test strip Ql (U)TraceAbnormal NegativeAv HospitalComment on above:Order Comment: Specimen Type: URINE SPECIMENOrdering Facility: [facility] Address:[address] [place], [place] [address]Performed By: #### UA ####[facility] [id number] [place] [address] [place] Nitrite Ql (U)NegativeNormalNegativeAv HospitalComment on above:Order Comment: Specimen Type: URINE SPECIMENOrdering Facility: [facility] Address:[address] [place], [place] [address]Performed By: #### UA ####[facility] [id number] [place] [id number] [place] AMERICApH (U)6.0 [pH]Normal5.0-8.0Av HospitalComment on above:Order Comment: Specimen Type: URINE SPECIMENOrdering Facility: [facility] Address:[address] [place], [place] [address]Performed By: #### UA ####[facility] [id number] [place] [id number] [place] AMERICAProtein (U) [Mass/Vol]NegativeNormal NegativeAv HospitalComment on above:Order Comment: Specimen Type: URINE SPECIMENOrdering Facility: [facility] Address:[address] [place], [place] [address]Performed By: #### UA ####[facility] [id number] [place] [id number] [place] Specific gravity (U) [Rel density]1.854Dukizg4.005-1.030Av HospitalComment on above:Order Comment: Specimen Type: URINE SPECIMENOrdering Facility: [facility] Address:[address] [place] [address]Performed By: #### UA ####[facility]ORYCLIA [id number] [place] [address] [place] [facility] COUNTY HOSPITALUrobilinogen Ql (U)0.2 EU/dLNormal 0.2-1.0 EU/dLPeoria HospitalComment on above:Order Comment: Specimen Type: URINE SPECIMENOrdering Facility: [facility] Address:[address] [place] [phone] By: #### UA ####[facility]ORYCLIA [id number] [place] [address] [place] OF AMERICAXR CHEST 2V FRONTAL/LATon 58-16-6155ID CHEST 2V FRONTAL/LAT* * *Final Report* * * DATE OF [...] thoracic spine. IMPRESSION: No acute radiographic abnormality. Dye Weigher: PSCB Transcribe Date/Time: Aug 10 2022 3:53P Dictated by : NISHI MOORE MD This examination was interpreted and the report reviewed and electronically signed by: NISHI MOORE MD on Aug 10 2022 3:53PM EST [id number] HealthaPTT PPPon 08-10-2022 aPTT Coag (PPP) [Time]27.5 pDddque04.0-32.4Avon HospitalComment on above:Order Comment: Specimen Type: BLOOD SPECIMEN Ordering Facility: [facility] Address: [address] [place] [address]Streslihq By: #### 07610-0, 10287-1 #### [facility] CLIA [id number] [place] [address] [place] AMERICAIMMUNOGLOBULINS IGA/IGM/IGG/IGE QUANTITA on 81-07-8629Cfjxmlyxxjhapd A, Qn, Smmys325 mg/dUNlnvcp99-453CbyRiverview Health Institute on above:Result Comment: Performed at: CBPerformed By: #### IMMUNGF #### [facility] [address] [place] [address] Dr. Heather DayImmunoglobulin E, Total5 IU/mLCritically low6-495The [facility] on above:Result Comment: Performed at: BNPerformed By: #### IMMUNGF #### [facility] [address] [place] [address] Dr. Heather DayImmunoglobulin G, Qn, Dcjyk908 mg/rNLibtbu199-4877JkpRiverview Health Institute on above:Result Comment: Performed at: CBPerformed By: #### IMMUNGF #### [facility] [address] [place] [address] Dr. Heather DayImmunoglobulin M, Qn, Serum67 mg/jRNzvkcl30-053Gqf [facility] on above:Result Comment: Performed at: CBPerformed By: #### IMMUNGF #### [facility] [address] [place] [address] Dr. Heather Ulloa by IFAon 43-54-7777Lpdckzkpkqp Antibodies, IFAPositive AbnormalThe [facility] HospitalComformerly [facility] on above:Result Comment: Negative <1:80 Borderline 1:80 Positive >1:80Performed By: #### SLEA #### [facility] [address] [place] [address] Dr. Heather Arambula [facility] on above: Performed By: #### SLEA #### [facility] [address] [place] [address] Dr. Heather Coy PatternNoSamaritan HospitalComment on above: Performed By: #### SLEA #### [facility] [address] [place] [address] [address] Heather DayHomogeneous Pattern1:320Critically highSumma Health Wadsworth - Rittman Medical Center Comment on above:Result Comment: ICAP nomenclature: AC-1Performed By: #### SLEA #### [facility] [address] [place] [address] [address] Heather DayMidbody PatternNormMercy Health St. Elizabeth Boardman HospitalComment on above: Performed By: #### SLEA #### [facility] [address] [place] [address] [address] Heather DayNote:CommentNoC[facility] Clinic Luther[facility] Hospital on above:Result Comment: For more information about Hep-2 cell [...] titers Nucleosomes, Histones Drug-induced SLE Speckled Sm, FISH AND WILDLIFE TECHNICIAN, SCL-70, SLE,MCTD,PSS (diffuse form), SS-A/SS-B Sjogrens Nucleolar SCL-70, PM- 1/SCL High titers Scleroderma, PM/DM Centromere Centromere PSS (limited form)w/Crest syndrome variable Nuclear Dot Sp100,j13-reoiuo Primary Biliary Cirrhosis Nuclear GP210, Primary Biliary Cirrhosis Membrane tenzin A,B,C Performed By: #### SLEA #### [facility] [address] [place] [address] Dr. Heather Pandya Dot PatternNoCleveland Clinic Lutheran Hospital on above: Performed By: #### SLEA #### [facility] [address] [place] [address] Dr. Heather Pandya Membrane PatternNormTriHealth Bethesda North Hospital on above:Performed By: #### SLEA #### [facility] [address] [place] [address] Dr. Heather Burnhamolar PatternNormTriHealth Bethesda North Hospital on above: Performed By: #### SLEA #### [facility] [address] [place] [address] Dr. Heather Trevino [facility] HospitalComment on above:Performed By: #### SLEA #### [facility] [address] [place] [address] Dr. Heather Dykes [facility] HospitalComment on above: Performed By: #### SLEA #### [facility] [address] [place] [address] Dr. Heather Mcgarry [employer]ar[employer] [facility] HospitalComment on above:Performed By: #### SLEA #### [facility] [address] [place] [address] Dr. Heather Ulloa DIRECTon 63-06-5548QRO DirectNegativeNormalNegativeThe [facility] HospitalComment on above:Performed By: #### ANAD #### [facility] [address] [place] [address] Dr. Heather DayANTISTREPTOLYSIN O AB (ASO)on 52-73-4594Ejgqaibqvpcgdunb O Ab49.4 IU/mLNormal0.0-200.0The [facility] HospitalComment on above:Performed By: #### ASOAB #### [facility] [address] [place] [address] Dr. Heather DayC3 and C4 COMPLEMENTon 71-06-6932Iuvjzebnoj C3, Ndait209 mg/dL Rkcpbs21-370Eyn [facility] HospitalComment on above:Performed By: #### SLEA #### [facility] [address] [place] [address] Dr. Heather DayComplement C4, Serum22 mg/gJWelxhj66-73Bqz [facility] Comment on above:Performed By: #### SLEA #### [facility] [address] [place] [address] Dr. Heather Johns PROFILE Aon 36-36-2504Ydtx-DNA (DS) Ab Qn<4Aegddr8-9Qsk [facility] HospitalComment on above:Result Comment: Negative <5 Equivocal 5 - 9 Positive >9Performed By: #### SLEA #### [facility] [address] [place] [address] [address] Heather DayAntichromatin Antibodies<0.1Cuwdbm0.0-0.9The [facility] Comment on above:Performed By: #### SLEA #### [facility] [address] [place] [address] Dr. Heather Lilly Latex Turbid.<10.0Normal<14.0The [facility] HospitalComment on above:Performed By: #### SLEA #### [facility] [address] [place] [address] Dr. Heather MckeonNP Antibodies0.7 AINormal0.0-0.9The [facility] HospitalComment on above:Performed By: #### SLEA #### [facility] [address] [place] [address] Dr. Heather Peguero Anti-SS-A<0.1Lqjywj7.0-0.9The [facility] HospitalComment on above:Performed By: #### SLEA #### [facility] [address] [place] [address] Dr. Heather Peguero Anti-SS-B<0.5Apqarz5.0-0.9The [facility] HospitalComment on above:Performed By: #### SLEA #### [facility] [address] [place] [address] Dr. Heather Reichith Antibodies<0.2Tzajnq1.0-0.9The [facility] HospitalComment on above:Performed By: #### SLEA #### [facility] [address] [place] [address] Dr. Heather Johnston AUTO DIFFon 53-32-0953NTPP #0.0 103/ulNormal0.0-0.1The [facility] HospitalComment on above:Performed By: #### SEDR #### [facility] [address] [place] [address] Dr. Heather DayBasophils/100 WBC (Bld)0.6 %Normal0.2-2.0The [facility] Comment on above:Performed By: #### SEDR #### [facility] [address] [place] [address] [address] Heather Romero #0.2 103/ulNormal0.0-0.7The [facility] HospitalComment on above: Performed By: #### SEDR #### [facility] [address] [place] [address] Dr. Heather Burnsosinophils/100 WBC (Bld)3.6 %Normal0.9-7.0The [facility] Comment on above:Performed By: #### SEDR #### [facility] [address] [place] [address] Dr. Heather Burnsrythrocyte distribution width (RBC) [Ratio]12.4 %Jrqcqn08.0-15.0 The [facility] HospitalComment on above:Performed By: #### SEDR #### [facility] [address] [place] [address] Dr. Heather DayHematocrit (Bld) [Volume fraction]36.7 %Pikmyf17.0-48.0The [facility] HospitalComment on above:Performed By: #### SEDR #### [facility] [address] [place] [address] Dr. Heather DayHemoglobin (Bld) [Mass/Vol]11.8 g/dLCritically low12.0-16.0The Madison Healthment on above:Performed By: #### SEDR #### [facility] [address] [place] [address] Dr. Heather Pollard #0.01 10e3/ulNormal0.00-0.03The [facility] HospitalComment on above:Performed By: #### SEDR #### [facility] [address] [place] [address] Dr. Heather Pollard %0.2 %Normal0.0-0.5The [facility] HospitalComment on above: Performed By: #### SEDR #### [facility] [address] [place] [address] Dr. Heather Palencia #2.4 103/ulNormal1.2-3.8The [facility] HospitalComment on above:Performed By: #### SEDR #### [facility] [address] [place] [address] Dr. Heather Valdesmphocytes/100 WBC (Bld)38.1 %Vgduoi45.5-60.0The [facility] HospitalComment on above:Performed By: #### SEDR #### [facility] [address] [place] [address] Dr. Heather Garza DIFF REQNONormalThe [facility] Lake HospitalComment on above: Performed By: #### SEDR #### [facility] [address] [place] [address] Dr. Heather Wyatt (RBC) [Entitic mass]29.6 mcOqgaee51.7-34.0The [facility] HospitalComment on above:Performed By: #### SEDR #### [facility] [address] [place] [address] Dr. Heather Wyatt (RBC) [Mass/Vol]32.2 g/sPNriuxt04.9-35.2The [facility] HospitalComment on above:Performed By: #### SEDR #### [facility] [address] [place] [address] Dr. Heather Cabral (RBC) [Entitic vol]92.2 qWDxizjr61.0-99.0The [facility] HospitalComment on above:Performed By: #### SEDR #### [facility] [address] [place] [address] Dr. Heather Isaac #0.5 103/ulNormal0.3-0.8The [facility] HospitalComment on above:Performed By: #### SEDR #### [facility] [address] [place] [address] Dr. Heather Whitneyocytes/100 WBC (Bld)7.7 %Normal1.7-12.0The [facility] on above:Performed By: #### SEDR #### [facility] [address] [place] [address] Dr. Heather Reyes #3.2 103/ulNormal1.4-6.5The [facility] HospitalComment on above:Performed By: #### SEDR #### [facility] [address] [place] [address] Dr. Heather Simmonsutrophils/100 WBC (Bld)49.8 %Szrrwd95.0-75.0The [facility] HospitalComment on above:Performed By: #### SEDR #### [facility] [address] [place] [address] Dr. Heather Newtonlet mean volume (Bld) [Entitic vol]10.1 fLNormal9.5-13.5The [facility] HospitalComment on above:Performed By: #### SEDR #### [facility] [address] [place] [address] Dr. Heather DayPLT290 103/jvNdgarc844-422Yuk [facility] HospitalComment on above: Performed By: #### SEDR #### [facility] [address] [place] [address] Dr. Heather CeballosC3.98 106/ulCritically low4.20-5.40The [facility] County HospitalComment on above:Performed By: #### SEDR #### [facility] [address] [place] [address] Dr. Heather DayWBC6.3 103/ulNormal4.0-11.0The [facility] HospitalComment on above: Performed By: #### SEDR #### [facility] [address] [place] [address] Dr. Heather Banks [id number] [Mass/Vol]mg/LNormal<=1.0The [facility] HospitalComment on above:Performed By: #### SEDR #### [facility] [address] [place] [address] Dr. Heather Abreu THYROXINE INDEX T7on 73-16-1257OXN6.29Fscnoc3.30-4.50The [facility] HospitalComment on above:Performed By: #### SEDR #### [facility] [address] [place] [address] Dr. Heather ColeyU35.0 %Dizfhm41.0-39.0The [facility] HospitalComment on above: Performed By: #### SEDR #### [facility] [address] [place] [address] Dr. Heather Sabillon4 [Mass/Vol]7.00 ug/dLNormal4.80-13.90The [facility] Comment on above:Performed By: #### SEDR #### [facility] [address] [place] [address] Dr. Heather Sterling 36-28-7312Adjk [Mass/Vol]49.0 ug/dLCritically low 50.0-170.0The [facility] HospitalComment on above:Performed By: #### SEDR #### [facility] [address] [place] [address] Dr. Heather Tran RATE WESTERGRENon 34-42-8230UMK RATE4 mm/hrNormal<=30The [facility] HospitalComment on above:Performed By: #### SEDR #### [facility] [address] [place] [address] Dr. Heather Shelton 70-80-5145TWN2.616 uIU/mLNormal0.358-3.740The [facility] HospitalComment on above:Performed By: #### SEDR #### [facility] [address] [place] [address] Dr. Heather DayURIC ACID SERUMon 43-99-4552Vvwol [Mass/Vol]2.1 mg/dLCritically low2.6-6.0The [facility] HospitalComment on above:Performed By: #### SEDR #### [facility] [address] [place] [address] Dr. Heather Sabillon4, T3U, FTI LABCORPon 46-82-8871Ytmp Thyroxine Index2.6Normal 1.2-4.9The [facility] HospitalComment on above:Performed By: #### SLEA #### [facility] [address] [place] [address] Dr. Heather DayT3 Prgrzv79 %Rqxbcs65-41Wim [facility] HospitalComment on above: Performed By: #### SLEA #### [facility] [address] [place] [address] Dr. Heather DayT4 [Mass/Vol]8.0 ug/dLNormal4.5-12.0The [facility] HospitalComment on above:Performed By: #### SLEA #### [facility] [address] [place] [address] Dr. Heather SwainC AUTO DIFFon [id number] #0.0 103/ulNormal0.0-0.1The [facility] HospitalComment on above:Performed By: #### SLEA #### [facility] [address] [place] [address] Dr. Heather DayBasophils/100 WBC (Bld)0.8 %Normal0.2-2.0[facility] Comment on above:Performed By: #### SLEA #### [facility] [address] [place] [address] Dr. Heather Romero #0.2 103/ulNormal0.0-0.7The [facility] HospitalComment on above: Performed By: #### SLEA #### [facility] [address] [place] [address] Dr. Heather Burnsosinophils/100 WBC (Bld)3.7 %Normal0.9-7.0The [facility] Comment on above:Performed By: #### SLEA #### [facility] [address] [place] [address] Dr. Heather Burnsrythrocyte distribution width (RBC) [Ratio]12.7 %Fodvpe18.0-15.0 The [facility] HospitalComment on above:Performed By: #### SLEA #### [facility] [address] [place] [address] Dr. Heather DayHematocrit (Bld) [Volume fraction]39.9 %Rbhiog75.0-48.0The [facility] HospitalComment on above:Performed By: #### SLEA #### [facility] [address] [place] [address] Dr. Heather DayHemoglobin (Bld) [Mass/Vol]13.1 g/mEUqdfhg92.0-16.0The [facility] Healthment on above:Performed By: #### SLEA #### [facility] [address] [place] [address] Dr. Heather Pollard #0.01 10e3/ulNormal0.00-0.03The [facility] HospitalComment on above:Performed By: #### SLEA #### [facility] [address] [place] [address] Dr. Heather Pollard %0.2 %Normal0.0-0.5The [facility] HospitalComformerly [facility] on above: Performed By: #### SLEA #### [facility] [address] [place] [address] Dr. Heather Palencia #1.5 103/ulNormal1.2-3.8The [facility] HospitalComment on above:Performed By: #### SLEA #### [facility] [address] [place] [address] Dr. Heather Brownleehocytes/100 WBC (Bld)28.6 %Icdlsj67.5-60.0The [facility] HospitalComformerly [facility] on above:Performed By: #### SLEA #### [facility] [address] [place] [address] Dr. Heather ParkUAL DIFF REQNONormalThe [facility] HospitalComment on above: Performed By: #### SLEA #### [facility] [address] [place] [address] Dr. Heather Wyatt (RBC) [Entitic mass]29.8 qvFvkwlp89.7-34.0The [facility] HospitalComment on above:Performed By: #### SLEA #### [facility] [address] [place] [address] Dr. Heather Wyatt (RBC) [Mass/Vol]32.8 g/mVLzxnmj98.9-35.2The [facility] HospitalComment on above:Performed By: #### SLEA #### [facility] [address] [address] [address] Heather WyattV (RBC) [Entitic vol]90.7 fEMctify86.0-99.0The [facility] HospitalComment on above:Performed By: #### SLEA #### [facility] [address] [place] [address] Dr. Heather Isaac #0.5 103/ulNormal0.3-0.8The [facility] HospitalComment on above:Performed By: #### SLEA #### [facility] [address] [place] [address] Dr. Heather Whitneyocytes/100 WBC (Bld)10.4 %Normal1.7-12.0The [facility] Comment on above:Performed By: #### SLEA #### [facility] [address] [place] [address] Dr. Heather Reyes #2.9 103/ulNormal1.4-6.5The [facility] HospitalComment on above:Performed By: #### SLEA #### [facility] [address] [place] [address] Dr. Heather Simmonsutrophils/100 WBC (Bld)56.3 %Uwuzjc99.0-75.0The [facility] HospitalComment on above:Performed By: #### SLEA #### [facility] [address] [place] [address] Dr. Heather Newtonlet mean volume (Bld) [Entitic vol]9.7 fLNormal9.5-13.5The [facility] HospitalComment on above:Performed By: #### SLEA #### [facility] [address] [place] [address] Dr. Heather DayPLT301 103/ghMdeesw289-640Zkp [facility] HospitalComment on above: Performed By: #### SLEA #### [facility] [address] [place] [address] Dr. Heather DayRBC4.40 106/ulNormal4.20-5.40The [facility] HospitalComformerly [facility] on above:Performed By: #### SLEA #### [facility] [address] [address] [address] Heather DayWBC5.2 103/ulNormal4.0-11.0The [facility] on above: Performed By: #### SLEA #### [facility] [address] [address] [address] Heather DayGLYCOHEMOGLOBIN A1Con 19-66-1284BAG RECOMMENDATIONSEE BELOWNormal The [facility] HospitalComformerly [facility] on above:Result Comment: ADA RECOMMENDED LIMIT 4.0 - 6.0 ADA THERAPEUTIC TARGET < 7.0 ACTION SUGGESTED > 7.0Performed By: #### SEDR #### [facility] [address] [place] [address] Dr. Heather DayGlucose [Mass/Vol]114 mg/dLNormalThe [facility] HospitalComformerly [facility] on above:Performed By: #### SEDR #### [facility] [address] [place] [address] Dr. Heather DayHbA1c (Bld) [Mass fraction]5.6 %Normal4.5-6.2The [facility] on above:Performed By: #### SEDR #### [facility] [address] [place] [address] Dr. Heather Sterling [id number] [Mass/Vol]124.0 ug/hHAjcprr20.0-170.0The [facility] HospitalComformerly [facility] on above:Performed By: #### SEDR #### [facility] [address] [place] [address] Dr. Heather DayPROF 14(COMP METB)on 60-08-8513Esisqdh [Mass/Vol]4.4 g/dLNormal 3.4-5.0The [facility] on above:Performed By: #### TSH, CMP #### [facility] [address] [place] [address] Dr. Heather DayAlbumin/Globulin [Mass ratio]1.4 {ratio}NormalThe [facility] HospitalComment on above:Performed By: #### TSH, CMP #### [facility] [address] [address] [address] Heather Kwok [Catalytic activity/Vol]58 U/OYpwbyq87-845Ztf [facility] HospitalComment on above:Performed By: #### TSH, CMP #### [facility] [address] [address] [address] Heather Giang [Catalytic activity/Vol]28 U/USsacar36-47Cff [facility] HospitalComment on above:Performed By: #### TSH, CMP #### [facility] [address] [address] [address] Heather Hustonon gap [Moles/Vol]10.6 mmol/LNormalThe [facility] Comment on above:Performed By: #### TSH, CMP #### [facility] [address] [address] [address] Heather DayAST [Catalytic activity/Vol]19 U/TVmcnws66-78Izj [facility] HospitalComment on above:Performed By: #### TSH, CMP #### [facility] [address] [address] [address] Heather DayBilirubin [Mass/Vol]0.6 mg/dLNormal0.2-1.0The [facility] Comment on above:Performed By: #### TSH, CMP #### [facility] [address] [address] [address] Heather DayCalcium [Mass/Vol]9.8 mg/dLNormal8.5-10.1The [facility] Comment on above:Performed By: #### TSH, CMP #### [facility] [address] [address] [address] Heather DayChloride [Moles/Vol]103 mmol/LFxbqgr54-029Sot [facility] Comment on above:Performed By: #### TSH, CMP #### [facility] [address] [address] [address] Heather DayCO2 [Moles/Vol]29.1 mmol/VUjbzcx01.0-32.0The [facility] Comment on above:Performed By: #### TSH, CMP #### [facility] [address] [address] [address] Heather DayCreatinine [Mass/Vol]0.72 mg/dLNormal0.55-1.02[facility] Medical CenterComment on above:Performed By: #### TSH, CMP #### [facility] [address] [address] [address] Heather BurnsGFR-AF NICARAGUAN>60Normal>=60The [facility] HospitalComment on above:Performed By: #### TSH, CMP #### [facility] [address] [address] [address] Heather BurnsGFR-NON AF NICARAGUAN>60Normal>=60The [facility] HospitalComment on above:Performed By: #### TSH, CMP #### [facility] [address] [address] [address] Heather DayGlobulin (S) [Mass/Vol]3.2 g/dLNormalThe [facility] HospitalComment on above:Performed By: #### TSH, CMP #### [facility] [address] [address] [address] Heather DayGlucose [Mass/Vol]100 mg/sBQjsrap94-923NrqSumma Health [facility] Comment on above:Performed By: #### TSH, CMP #### [facility] [address] [address] [address] Heather DayPotassium [Moles/Vol]4.7 mmol/LNormal3.5-5.1The [facility] Comment on above:Performed By: #### TSH, CMP #### [facility] [address] [address] [address] Heather DayProtein [Mass/Vol]7.6 g/dLNormal6.4-8.2The [facility] Comment on above:Performed By: #### TSH, CMP #### [facility] [address] [address] [address] Heather DaySodium [Moles/Vol]138 mmol/SIzhqvs409-926Sri [facility] Comment on above:Performed By: #### TSH, CMP #### [facility] [address] [place] [address] Dr. Heather Whyte nitrogen [Mass/Vol]17.0 mg/dLNormal7.0-18.0The [facility] HospitalComment on above:Performed By: #### TSH, CMP #### [facility] [address] [place] [address] Dr. Heather Whyte nitrogen/Creatinine [Mass ratio]23.6 mg/mgNormalThe [facility] HospitalComment on above:Performed By: #### TSH, CMP #### [facility] [address] [place] [address] Dr. Heather Shelton 96-61-3923TXA5.099 uIU/mLNormal0.358-3.740The [facility] HospitalComment on above:Performed By: #### SLEA #### [facility] [address] [place] [address] Dr. Heather Johnston AUTO DIFFon [id number] #0.0 103/ulNormal0.0-0.1[facility] Medical CenterComment on above:Performed By: #### SEDR #### [facility] [address] [place] [address] Dr. Heather DayBasophils/100 WBC (Bld)0.7 %Normal0.2-2.0[facility] Comment on above:Performed By: #### SEDR #### [facility] [address] [place] [address] Dr. Heather Romero #0.2 103/ulNormal0.0-0.7The [facility] HospitalComment on above: Performed By: #### SEDR #### [facility] [address] [place] [address] Dr. Heather Burnsosinophils/100 WBC (Bld)5.1 %Normal0.9-7.0The [facility] Comment on above:Performed By: #### SEDR #### [facility] [address] [place] [address] Dr. Heather Burnsrythrocyte distribution width (RBC) [Ratio]12.2 %Wmliqy51.0-15.0 The [facility] HospitalComment on above:Performed By: #### SEDR #### [facility] [address] [place] [address] Dr. Heather DayHematocrit (Bld) [Volume fraction]40.5 %Nllkoh90.0-48.0The [facility] HospitalComment on above:Performed By: #### SEDR #### [facility] [address] [place] [address] Dr. Heather DayHemoglobin (Bld) [Mass/Vol]13.1 g/oXFfzstl87.0-16.0The [facility] HospitalComment on above:Performed By: #### SEDR #### [facility] [address] [place] [address] Dr. Heather Pollard #0.01 10e3/ulNormal0.00-0.03The [facility] HospitalComment on above:Performed By: #### SEDR #### [facility] [address] [place] [address] Dr. Heather Pollard %0.2 %Normal0.0-0.5The [facility] HospitalComment on above: Performed By: #### SEDR #### [facility] [address] [place] [address] Dr. Heather ValdesMPH #1.5 103/ulNormal1.2-3.8The [facility] HospitalComment on above:Performed By: #### SEDR #### [facility] [address] [place] [address] Dr. Heather Valdesmphocytes/100 WBC (Bld)32.7 %Avpdng48.5-60.0The [facility] HospitalComment on above:Performed By: #### SEDR #### [facility] [address] [place] [address] Dr. Heather ParkUAL DIFF REQNONormalThe [facility] HospitalComment on above: Performed By: #### SEDR #### [facility] [address] [address] [address] Heather WyattH (RBC) [Entitic mass]29.8 nsJelygk23.7-34.0The [facility] HospitalComment on above:Performed By: #### SEDR #### [facility] [address] [place] [address] Dr. Heather Wyatt (RBC) [Mass/Vol]32.3 g/pMYefvfz33.9-35.2The [facility] HospitalComment on above:Performed By: #### SEDR #### [facility] [address] [place] [address] Dr. Heather Wyatt (RBC) [Entitic vol]92.0 wTEvjevk43.0-99.0The [facility] HospitalComment on above:Performed By: #### SEDR #### [facility] [address] [place] [address] Dr. Heather Isaac #0.4 103/ulNormal0.3-0.8The [facility] HospitalComment on above:Performed By: #### SEDR #### [facility] [address] [place] [address] Dr. Heather Whitneyocytes/100 WBC (Bld)9.5 %Normal1.7-12.0The [facility] Comment on above:Performed By: #### SEDR #### [facility] [address] [place] [address] Dr. Heather Reyes #2.4 103/ulNormal1.4-6.5The [facility] HospitalComment on above:Performed By: #### SEDR #### [facility] [address] [place] [address] Dr. Heather Simmonsutrophils/100 WBC (Bld)51.8 %Tsrgdd91.0-75.0The [facility] HospitalComment on above:Performed By: #### SEDR #### [facility] [address] [place] [address] Dr. Heather Newtonlet mean volume (Bld) [Entitic vol]10.1 fLNormal9.5-13.5The [facility] HospitalComment on above:Performed By: #### SEDR #### [facility] [address] [place] [address] Dr. Heather DayPLT260 103/nvWrhuhb490-556Woj [facility] HospitalComment on above: Performed By: #### SEDR #### [facility] [address] [address] [address] Heather DayRBC4.40 106/ulNormal4.20-5.40The [facility] HospitalComment on above:Performed By: #### SEDR #### [facility] [address] [place] [address] Dr. Heather DayWBC4.6 103/ulNormal4.0-11.0The [facility] HospitalComment on above: Performed By: #### SEDR #### [facility] [address] [place] [address] Dr. Heather Abreu THYROXINE INDEX T7on 00-40-4541MYE1.63NoSamaritan HospitalComment on above:Performed By: #### SLEA #### [facility] [address] [place] [address] Dr. Heather DayT3U35.0 %Pczaol80.5-40.5ThSt. John of God HospitalComment on above: Performed By: #### SLEA #### [facility] [address] [place] [address] Dr. Heather DayT4 [Mass/Vol]7.50 ug/dLNormal5.53-11.00The [facility] Comment on above:Performed By: #### SLEA #### [facility] [address] [place] [address] Dr. Heather DayGLYCOHEMOGLOBIN A1Con 41-89-1476JOQ RECOMMENDATIONADA THERAPEUTIC TARGET 6.0 - 7.0 ACTION SUGGESTED > 7.0NoSamaritan HospitalComment on above:Performed By: #### SLEA #### [facility] [address] [place] [address] Dr. Heather DayGlucose [Mass/Vol]120 mg/dLToledo HospitalComment on above:Performed By: #### SLEA #### [facility] [address] [place] [address] Dr. Heather DayHbA1c (Bld) [Mass fraction]5.8 %Normal<=6.0[facility] Comment on above:Performed By: #### SLEA #### [facility] [address] [place] [address] Dr. Heather Sterling 74-33-4243Rkbj [Mass/Vol]133.0 ug/qQXxmuyh57.0-170.0[facility] Medical CenterComment on above:Performed By: #### IRON #### [facility] [address] [place] [address] Dr. Heather HeckID PROFILEon 09-86-0997BTRE-HDL RATIO NORMSCleveland Clinic Union HospitalComment on above:Result Comment: 3.3 - 4.4 LOW RISK 4.4 - 7.1 AVERAGE RISK 7.1 - 11.0 MODERATE RISK >11.0 HIGH RISKPerformed By: #### SLEA #### [facility] [address] [place] [address] Dr. Heather Contrerasesterol [Mass/Vol]193 mg/dLNormal<=200[facility] Comment on above:Performed By: #### SLEA #### [facility] [address] [place] [address] Dr. Heather DayCholesterol in HDL [Mass/Vol]77 mg/dLToledo Hospital Comment on above:Performed By: #### SLEA #### [facility] [address] [place] [address] Dr. Heather DayCholesterol in LDL [Mass/Vol]104.8 mg/dLToledo HospitalComment on above:Performed By: #### SLEA #### [facility] [address] [place] [address] Dr. Heather Contrerasesterol.total/Cholesterol in HDL [Mass ratio]2.5 {ratio} NormalSumma Health Wadsworth - Rittman Medical CenterComment on above:Performed By: #### SLEA #### [facility] [address] [address] [address] Heather Verma NORMAL> or = 60 mg/dl - LOW CARDIOVASCULAR RISK <40 mg/dl - HIGH CARDIOVASCULAR RISKToledo HospitalComment on above:Performed By: #### SLEA #### [facility] [address] [address] [address] Heather Gutierrez CALC NORMALSEE BELOWNoSamaritan HospitalComment on above:Result Comment: <100 mg/dl OPTIMAL 100 - 129 mg/dl NEAR OR ABOVE OPTIMAL 130 - 159 mg/dl BORDERLINE HIGH 160 - 189 mg/dl HIGH >190 mg/dl VERY HIGH Performed By: #### SLEA #### [facility] [address] [place] [address] Dr. Heather DayTriglyceride [Mass/Vol]56 mg/dLNormal<=150The [facility] Comment on above:Performed By: #### SLEA #### [facility] [address] [address] [address] Heather Mcduffie CALC11.2 mg/dLNoSamaritan HospitalComment on above: Performed By: #### SLEA #### [facility] [address] [place] [address] Dr. Heather DayPROF 14(COMP METB)on 20-07-8981Phleyvi [Mass/Vol]4.2 g/dLNormal 3.5-5.0The [facility] on above:Performed By: #### SLEA #### [facility] [address] [place] [address] Dr. Heather DayAlbumin/Globulin [Mass ratio]1.2 {ratio}NormalThe [facility] HospitalComformerly [facility] on above:Performed By: #### SLEA #### [facility] [address] [place] [address] Dr. Heather DayALP [Catalytic activity/Vol]60 U/SQxfvdo07-310Att [facility] HospitalComment on above:Performed By: #### SLEA #### [facility] [address] [address] [address] Heather MoratayaT [Catalytic activity/Vol]29 U/LNormal9-52[facility] Comment on above:Performed By: #### SLEA #### [facility] [address] [address] [address] Heather DayAnion gap [Moles/Vol]11.7 mmol/LNormalThe [facility] Comment on above:Performed By: #### SLEA #### [facility] [address] [address] [address] Heather DayAST [Catalytic activity/Vol]22 U/BEvmfhr55-04Ycw [facility] HospitalComment on above:Performed By: #### SLEA #### [facility] [address] [place] [address] Dr. Heather DayBilirubin [Mass/Vol]0.5 mg/dLNormal0.2-1.3The [facility] Comment on above:Performed By: #### SLEA #### [facility] [address] [place] [address] Dr. Heather DayCalcium [Mass/Vol]9.2 mg/dLNormal8.4-10.2[facility] Comment on above:Performed By: #### SLEA #### [facility] [address] [place] [address] Dr. Heather DayChloride [Moles/Vol]104 mmol/HJhmqhd14-415Lrp [facility] Comment on above:Performed By: #### SLEA #### [facility] [address] [place] [address] Dr. Heather DayCO2 [Moles/Vol]30.6 mmol/LCritically high22.0-30.0The [facility] HospitalComment on above:Performed By: #### SLEA #### [facility] [address] [place] [address] Dr. Heather DayCreatinine [Mass/Vol]0.65 mg/dLNormal0.52-1.04The [facility] HospitalComment on above:Performed By: #### SLEA #### [facility] [address] [address] [address] Heather BurnsGFR-AF NICARAGUAN>60Normal>=60The [facility] HospitalComment on above:Performed By: #### SLEA #### [facility] [address] [address] [address] Heather BurnsGFR-NON AF NICARAGUAN>60Normal>=60The [facility] HospitalComment on above:Performed By: #### SLEA #### [facility] [address] [address] [address] Heather DayGlobulin (S) [Mass/Vol]3.4 g/dLNormalThe [facility] HospitalComment on above:Performed By: #### SLEA #### [facility] [address] [address] [address] Heather DayGlucose [Mass/Vol]91 mg/rTWpfnwk76-223TzqSumma Health [facility] Comment on above:Performed By: #### SLEA #### [facility] [address] [address] [address] Heather DayPotassium [Moles/Vol]4.3 mmol/LNormal3.4-5.0[facility] Comment on above:Performed By: #### SLEA #### [facility] [address] [address] [address] Heather DayProtein [Mass/Vol]7.6 g/dLNormal6.1-8.2[facility] Comment on above:Performed By: #### SLEA #### [facility] [address] [address] [address] Heather DaySodium [Moles/Vol]142 mmol/IGdmsjt357-713BdeSumma Health [facility] Comment on above:Performed By: #### SLEA #### [facility] [address] [address] [address] Heather DayUrea nitrogen [Mass/Vol]22.0 mg/dLCritically high7.0-17.0The [facility] County HospitalComment on above:Performed By: #### SLEA #### [facility] [address] [place] [address] Dr. Heather Whyte nitrogen/Creatinine [Mass ratio]33.8 mg/mgNoSamaritan HospitalComment on above:Performed By: #### SLEA #### [facility] [address] [place] [address] Dr. Heather Shelton 66-30-0999PIM1.806 uIU/mLNormal0.470-4.680The [facility] County HospitalComment on above:Performed By: #### SLEA #### [facility] [address] [place] [address] Dr. Heather Vences RANGESEE BELOWNoSamaritan HospitalComment on above: Result Comment: <0.34 UIU/ml HYPERTHYROID 0.34-5.60 UIU/ml EUTHYROID >5.60 UIU/ml HYPOTHYROIDPerformed By: #### SLEA #### [facility] [address] [place] [address] Dr. Heather DayCovid-19 PCR ([facility])on 01-26-4715XYEO-CoV-2 (COVID-19) RNA MEGAN+probe Ql (Unsp spec)Not detectedNormalNOT DETECTEDThe [facility] Comment on above:Result Comment: This test is not yet approved or cleared by the [place] FDA. When there are no FDA-approved or cleared tests available, and other criteria are met, FDA can make tests available under an emergency access mechanism called an Emergency Use Authorization (EUA). The EUA for this test is supported by the [place] of Health and Human Service's (HHS's) declaration that circumstances exist to justify the emergency use of in vitro diagnostics for the detection and/or diagnosis of the virus that causes COVID- 19. This EUA will remain in effect (meaning [...] of clinical signs and symptoms consistent with SARS-CoV-2.Performed By: #### CVDTBH #### [facility] [address] [place] [address] Dr. Heather Day Encounters Encounter DateEncounter TypeCare ProviderFacilityStart: 08-13-2025 End: 59-62-7439Ngeuxu outpatient visit 25 minutesEmily Ricardo Matta MD Work Phone: [facility] [place] DermatologyComment on above:Acne vulgaris (Primary Dx); Lichen planopilarisStart: 08-13-2025 End: 46-87-0408aatblgfgdnMQQYX A PETITTINot AvailableStart: 08-13-2025 End: 41-22-3649Wsodul flowsheetEmmark anthony Matta MD Work Phone: [facility] [place] DermatologyStart: 08-13-2025 End: 17-45-6694Klxvfq flowsheetEmmark anthony Matta MD Work Phone: [facility] DermatologyStart: 03-22-2025 End: 99-03-3507ilkxydwzgbBtpaoie [facility] Work Phone: Start: 03-22-2025 End: 01-86-5719Mntbwsgt ReferredLifecare Hospital of Mechanicsburg Work Phone: [facility] Path Spec [facility] HospStart: 03-22-2025 End: 68-13-9811Nemrgfdah Result EncounterMattbhavin JEAN Work Phone: noms External Department UnsolicitedStart: 03-22-2025 End: 42-62-9060Naygyyvdw Result EncounterMattbhavin JEAN Work Phone: noms External Department UnsolicitedStart: 02-17-2025 End: 73-87-0392Veqicc outpatient visit 25 minutesEmily Ricardo Matta MD Work Phone: noms SWS DERMComment on above:Acne vulgaris (Primary Dx)Start: 02-17-2025 End: 13-89-5014ujyxesscyfRZIHS A PETITTINot AvailableStart: 02-17-2025 End: 21-69-3086Ttsaoq flowsRadha Matta MD Work Phone: noms SWS DERMStart: 02-17-2025 End: 82-14-2335Jmggznryan Matta MD Work Phone: n[facility] SWS DERMStart: 08-22-2022 End: 82-15-7177myjcdodcraLD YADIRA HOYFacility:H3Nfsof: 40-99-6370lejtfazguo Khushi Velazco MD Work Phone: RheumatologyComment on above:Question regarding FOUR EXTRA LT BLUE MAN COAG TUBESStart: 08-10-2022 End: 20-36-6388haadmmufrjIAZFCM D MANZONFacility:[facility] Centertart: 08-10-2022 End: 73-65-9638Nnffkgvfry hospital visit by physicianXr [facility] Work Phone: [facility] Radiology GeneralComment on above: Positive DOROTHY (antinuclear antibody) [R76.8]Start: 08-02-2022 End: 90-06-3371kfhlclrjtyPB YADIRA HOYFacility:C0Bjehs: 07-07-2022 End: 81-52-0753yerhhdgrwvWN YADIRA HOYFacility:F9Znqlv: 06-28-2022 End: 43-51-4190vfkelcxzaiZS YADIRA HOYFacility:W2Ifsup: 06-28-2022 End: 03-90-0316doystrbsjeUJ YADIRA HOYFacility:F7Nbtbj: 62-78-2161Vhgtyiuzk for general adult medical examination without abnormal findingsDR YADIRA HOYThe [facility] HospitalStart: 12-16-2021 End: 72-78-7555Ovsyyofdj for general adult medical examination without abnormal findingsDR YADIRA HOYFacility:V1Mlavr: 12-16-2021 End: 30-07-7478rzymyrnlswUY YADIRA HOYFacility:F0Dvowo: 06-69-1233hzqmhchjgf CLAUS MOOREFacility:A0Kiuev: 09-02-2021 End: 49-62-0274uohnujbyweMQ YADIRA HOYFacility:H1 Procedures DateProcedureProcedure DetailPerforming ClinicianStart: 52-26-4727HUJCIYadkin Valley Community Hospitallucy JEAN Work Phone: Start: 51-57-2914Abnubxwzzx exam chest 2 viewsKhushi Velazco MD Work Phone: Plan of Treatment DateCare ActivityDetailAuthorStart: 11-05-2025 End: 24-14-4169Axnvukc encounter vyrrddaix66/22/2026 2:15 PM EST Office Visit [facility] [address] [place] [address] Kaylyn Matta MD [address] [place], [place] [id number] [facility] [place] DermatologyStart: 08-13-2025 End: 02-81-5741Ebfbwjx encounter procedureNOMS SWS DERMComment on above:Arrived Start: 48-88-6395KWQBG-19 Vaccine ( season)COVID-19 Vaccine ()[facility] HealthcareStart: 09-01-1335Kjuowxaab vaccinationNOMS HealthcareStart: 60-74-6303Qstte [facility] Hospitaltart: 40-27-1743Einkilwg identified in Urine by CultureUrine [facility] Centertart: 02-17-2025 End: 14-88-7540Oehltix encounter hledrfuxz70/06/2025 3:35 PM EDT Office Visit [facility] [address] [place] [address] Kaylyn Matta MD [address] [place] [address] ArrivedNOMS SWS DERMComment on above:ArrivedStart: 70-55-0229Lwcuh-19 Vaccine ()Covid-19 Vaccine ()[facility] Hospitaltart: 33-20-1244Mieqirzcj vaccinationInfluenza Vaccine (#1)[facility] Hospitaltart: 43-11-8495Gzhqbfppdl AssessmentDepression Assessment [facility] Hospitaltart: 05-35-7667Fchmpbgxp vaccinationINFLUENZA (#1)[facility] Hospitaltart: 28-73-6104RNXWUYRQSU ASSESSMENTDEPRESSION ASSESSMENTOhioHealth Berger Hospitaltart: 96-74-4378IKROX-19 VACCINE (3 - Booster for Pfizer series)COVID-19 VACCINE (3 - Booster for Pfizer series)[facility] Hospitaltart: 55-97-9384BUVNCCIP SCREENDIABETES SCREENOhioHealth Berger Hospitaltart: 39-07-1630Pglcfjgr Screening Diabetes ScreeningOhioHealth Berger Hospitaltart: 44-39-6754MJSPDUBK VACCINE (1 of 2) SHINGRIX VACCINE (1 of 2)[facility] Hospitaltart: 72-54-5671NYGDISUDH (FIT-DNA) COLOGUARD (FIT-DNA)[facility] Hospitaltart: 30-80-1556QozjcvjxxjlHFTKISVKEFH [facility]tart: 35-80-0086JRKOZNJDJV CANCER SCREENINGCOLORECTAL CANCER SCREENINGOhioHealth Berger Hospitaltart: 18-32-4107IV COLONOGRAPHYCT COLONOGRAPHY [facility]tart: 38-23-2308NPZXU OCCULT BLOODFECAL OCCULT BLOODOhioHealth Berger Hospitaltart: 45-63-5874Gvgyv 1996 panel - Serum or PlasmaLipid Screening [facility] Hospitaltart: 73-39-6913GLZVT SCREENLIPID SCREENOhioHealth Berger Hospitaltart: 75-89-3299DFPBDIJYBHLWWGBHJMDOVNSKHFGeggmoxsb ClinicStart: 59-32-0120Tfapfnfsqbo [facility] Hospitaltart: 19-98-0614Tanydwhmd for malignant neoplasm of breast MammogramNOMD HealthcareStart: 14-41-5004VXW TESTINGHPV TESTINGMercy Health Kings Mills Hospital Start: 73-78-4643Noopeuxxw for malignant neoplasm of cervixNOMS HealthcareStart: 12-00-2930KIO TESTINGPAP TESTINGOhioHealth Berger Hospitaltart: 49-38-1624Lbthvcslc for malignant neoplasm of cervixPap SmearNOMD HealthcareStart: 65-20-7349Xnjxkgkhm B Vaccines (1 of 3 - 19+ 3-dose series)Hepatitis B Vaccines (1 of 3 - 19+ 3-dose series)[facility] HealthcareStart: 42-35-0381Yxuqa microalbumin profileOhioHealth Berger Hospitaltart: 43-08-1724LGYMQVSEW C SCREENINGHEPATITIS C SCREENINGOhioHealth Berger Hospitaltart: 56-91-5950ZKN SCREENINGHIV SCREENINGOhioHealth Berger Hospitaltart: 13-99-8982BUyB/Tdap/Td Vaccines (1 - Tdap)DTaP/Tdap/Td Vaccines (1 - Tdap)[facility] CenterStart: 45-05-5137MWF Vaccines (1 of 1 - Standard series)MMR Vaccines (1 of 1 - Standard series)[facility] CenterStart: 45-58-6358ZELMVSKTV B (1 of 3 - 3-dose series)HEPATITIS B (1 of 3 - 3-dose series)[facility] Hospitaltart: 76-43-6135Owiqxqsti B Vaccine (1 of 3 - 3-dose series)Hepatitis B Vaccine (1 of 3 - 3-dose series)[facility]rt: 30-65-4967Mbyqhbkto for malignant neoplasm of colonCameron Regional Medical CenterURINE CULTURE - [facility] Routine 03/22/2025 6:05 PM [facility] Work Phone: Payers DatePayer CategoryPayerPolicy [id number] BLUE CARD PPO OOS [id number] 2021-Present [phone] [address] [place], [place] [address]WKT [id number] [place] [address] [id number] 2.16840.1.212945.3.57[id number] 2.16840.1.398413.3.57[id number] 2.16840.1.017799.3.57[id number] 2.0.1.561974.3.57[id number] 2.0.1.453174.3.57[id number] 2.0.1.118214.3.57[id number] 2.160.1.373394.3.57[id number] 2.0.1.435291.3.57[id number] 2.840.1.827323.3.57[id number] 2.0.1.840474.3.57[id number] 2.840.1.144371.3.579.2.786144-61-9867Pemm-[id number] UnknownAnthem /[id number]-[id number] [id number] 2.16840.1.055815.3.579.2.531 Social History DateTypeDetailFacilityStart: 08-10-2022 End: 03-44-7747Kxjwzuj smoking status NHISNever smoked tobaccoMercy Health Kings Mills Hospital Start: 08-10-2022 End: 02-05-4219Okskrsl use and exposureSmokeless tobacco non-userOhioHealth Berger Hospitaltart: 08-10-2022 End: 99-98-8180Kjfmjym intakeCurrent non-drinker of alcohol (finding)[facility] Hospitaltart: 94-19-7131Kkd Assigned At BirthNot on [facility] Hospitaltart: 07-31-2022 End: 76-92-6851Voyvzmau to SARS-CoV-2 (event)Not sureOhioHealth Berger Hospitaltart: 08-10-2022 End: 18-35-0630Ejuxqfb of Social functionOhioHealth Berger Hospitaltart: 08-10-2022 End: 32-97-2172Ygmnzav use panelOhioHealth Berger Hospitaltart: 95-90-0007Dwsjeweu Score (1-100), lower number is lower riskNot on [facility] HealthStart: 03-24-2025 SexFemale (finding)[facility] Hospitaltart: 34-08-4832Ktd Assigned At [place] History of Present illness Narrative 08-13-2025 Note Date & MpysRrbgOzhahumt16-05-5808 History of Present illness Narrative* Kaylyn Matta MD - 08/13/2025 3:30 PM EDT Follow up: Diagnosis: Acne Location: face Last visit: 6 months ago Symptoms: denies dry skin, denies GI upset Status: clear, happy with treatment Treatments tried and failed: spironolactone, doxycycline, minocycline, Current treatment: Ceftin 250 mg every day, Benzaclin Gel and started Winlevi. - doing well tried to stop Ceftin on her own and flared again. All pertinent medical history, medications, and allergies were reviewed. General Exam: alert, oriented to person, place, and time, normal affect, well appearing Unaccompanied A focused exam completed based on patient reported problems, see below: Skin Exam 1. ACNE VULGARIS Head - Anterior (Face) Clear today, Well controlled with current treatment. Continue Ceftin 250 mg every day, Benzaclin gel in the morning and Winlevi in the evening. Patient reports she is unable to taper off oral antibiotics at this time without flaring. Discussed risks oflong term use of antibiotics. Patient happy at this time with current treatment. Encouraged patientto take a daily probiotic. Refills were sent in at last visit, not needed at this time. Notify clinic if flaring despite treatment or if side effects develop. Return to clinic in 3 months. 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 Avoiding some topical preservatives and products can help, list provided. Treatments include topical steroids, ILK, and oral prescriptions. Start fluocinonide solution, apply to affected areas at bedtime and may rinse in the morning if shewants to. Return to clinic in 3 months, can cancel if happy with treatment. - fluocinonide (Lidex) 0.05 % external solution - Head - Anterior (Face) - Apply to affected areas on the scalp, up to twice a day when flared, 30 day supply Next Visit: 3 months documented in this encounterC[facility] Instructions 08-13-2025 Note Date & HsbxTrnbQbquyjbp96-89-1130 Instructions* Patient Instructions* Sasha Rivera MA - 08/13/2025 3:30 PM EDT AVOID FRAGRANCES Sometimes Fragrance may not be listed in the ingredients and instead one of these ingredients will be listed: Citronellol / Farnesol Citral a-Hexylcinnamicaldehyde Geraniol Cinnamyl alcohol [place] garcia Lyral Limonene Cinnamaldehyde Isoeugenol a-Amylcinnamaldehyde Linalool Hydroxycitronellal Eugenol Coumarine AVOID FORMALDEHYDE RELEASERS INCLUDING: Quaternium-15 DMDM hydantoin Imidazolidinyl urea Diazolidinyl urea Polyoxymethylene urea Sodium hydroxymethylglycinate Bromopol AVOID HAIR COLOR/DYES AND OTHER PRODUCTS WITH THE FOLLOWING INGREDIENTS: Ammonium persulfate Paraphenylenediamine (PPD) Methylchloroisothiazolinone (MCI/IN) USE ZINC-CONTAINING MINERAL SUNSCREENS, FACIAL MOISTURIZES, AND MAKEUP WITH SPF. IT IS BEST TO USE FRAGRANCE FREE PRODUCTS. AVOID THE FOLLOWING: Gallate mix Dodecyl gallate Octyl gallate documented in this encounterNOMD Healthcare History of Present illness Narrative 02-17-2025 Note Date & DtrdEbufClvxbdrb87-05-5448 History of Present illness Narrative* Kaylyn Matta MD - 02/17/2025 3:35 PM EDT Follow up Diagnosis: Acne Location: face Last visit: 1 year ago Symptoms: denies dry skin, denies GI upset Status: clear, happy with treatment Treatments tried and failed: spironolactone, doxycycline, minocycline Current treatment: Ceftin 250 mg every day, tries to take breaks but then starts to break out aftermissing a few days, Benzaclin gel qd All [...] antibiotics given risks of staying on them nursing home. Start Winlevi cream bid. Instructed on use [...] Next Visit: 6 months documented in this [facility] Progress note 08-10-2022 Note Date & YsorTbkrCktseliv76-47-8345 NoteHNO ID: [id number] Author: RT Tam(R) Service: ? Author Type: [...] BY: RT Tam(R) August 10, 2022 3:47 [facility] Progress note 08-10-2022 Note Date & AomgAkbuLtftsosc90-12-4810 NoteHNO ID: [id number] Author: Khushi Velazco MD Service: ? 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 The history as it pertains to her current complaints is outlined as follows: -Sep 2017: was evaluated by area operations director Dr. Donald Ty (with edits for brevity [...] (+)fatigue HEENT: Positive for: Mouth sores (see [place]) Negative for: Trouble swallowing and Dry mouth [...] for: Dysuria and Hematuria HEMATOLOGIC/LYMPHATIC: PCP Yadira Millan MD, MD PAST MEDICAL HISTORY Diagnosis Date Cataract Dry eye Macular (more content not included)...[facility] History of Present illness Narrative 08-10-2022 Note Date & GusgVdciTjkxtkhe87-09-5498 History of Present illness Narrative* Kaylyn Ochoa RT(R) - 08/10/2022 3:50 PM EDT Radiology Service Progress Note PATIENT NAME: Dontae West DATE OF SERVICE: August 10, 2022 TIME: 3:47 PM PATIENT IDENTITY VERIFICATION COMPLETED USING TWO (2) IDENTIFIERS: Name and Date of confirmedby patient verbally and Name and Date of [...] IV DATA: Not applicable SIGNED BY: RT Tam(Irina) August 10, 2022 3:47 PM documented [facility] encounterMer[facility] Evaluation note Note Date & TypeNoteFacilityEvaluation note* Diagnosis Positive DOROTHY (antinuclear antibody) Other and unspecified nonspecific immunological findings documented in this encounter [facility] Evaluation note Note Date & TypeNoteFacilityEvaluation note* Diagnosis Acne vulgaris- Primary Other acne documented in this encounter [facility] Evaluation note Note Date & TypeNoteFacilityEvaluation noteNo assessment information available [facility] Work Phone: Evaluation note Note Date & TypeNoteFacilityEvaluation note* Diagnosis Acne vulgaris- Primary Other acne Lichen planopilaris Lichen planus documented in this encounter [facility] Summary Purpose Family History No Family History Records FoundNo Family History Records FoundNo Family History Records FoundNo Family History Records FoundNo Family History Records Found Advance Directives No Advanced Directives Records Found Advance Directive Response Recorded Date/ Time Advance Directives No September 12:16pm Additional Source Comments INFORMATION SOURCE (unrecogn ized section and content) DATE CREATED AUTHOR 08/12/2022 [facility] DATE CREATED AUTHOR AUTHOR'S ORGANIZ ATRADHA 08/27/2022 [facility] DATE CREATED AUTHOR AUTHOR'S ORGANIZ ATION 09/04/2022 [facility] DATE CREATED AUTHOR AUTHOR'S ORGANIZ ATION 03/28/2025 [facility] DATE CREATED AUTHOR AUTHOR'S ORGANIZ ATION 08/15/2025 [facility] EPIC Source Comments (unrecognize d section and content) In the event this informatio n is protected by the Federal Confidentiality of Alcohol and Drug Abuse Patient Records regulations: The Federal rules restrict any use of the information to criminally investigate or prosecute any alcohol or drug abuse patient.[facility] HospitalIn the event this information is protected by the Federal Confidentiality of Alcohol and Drug Abuse Patient Records regulations: The Federal rules restrict any use of the information to criminally investigate or prosecute any alcohol or drug abuse patient.[facility] Care Teams (unrecognized sec tion and content) Team MemberRelationshipSpecialtyStart DateEnd Date Yadira Millan MD PCP - GeneralFamily Medicine06/12/17Team MemberRelationshipSpecialtyStart DateEnd Date Yadira Millan MD PCP - GeneralFamily Medicine06/12/17 Team Status: Inactive Member Role Status Dates Manfred Baltazar DO Attending Provider Active S tart: March 22, 2025 End: March 22, 2025 Reason for Visit (unrecogniz ed section and content) ReasonCommentsFollow-upReasonCommentsAcne Goals (unrecognized section and content) Goals may be documented in a n alternate section FOR RECORDS PERTAINING TO PATIENTS WHO ARE [...] BE BASED ON THE PRIMARY CLINICAL RECORDS. [facility] [employer] [facility]. provides no warranty or guarantee of the accuracy or completeness of information in this document.
--- NOTE | 2025-09-22 10:13 | MM_ITS ---
Patient Name: DONTAE MIDDLETON MR#: [id number] : 1970 Exam Date: 09/22/2025 Ordering Doctor: DR YADIRA MILLAN . RADIOLOGY REPORT PROCEDURE: MM TOMOSYNTHESIS SCREENING BI COMPARISON: None. INDICATIONS: Screening Calculator Name NCI Breast Cancer Risk Assessment Tool 5 Year Breast Cancer Risk 0.80% Lifetime Breast Cancer Risk 5.50% Personal Breast Cancer No Personal Ovarian Cancer No Treatments None Family Cancers Mother with cervical cancer at age 50; Son with all cancer at age 15. LOCATION: [facility] BREAST COMPOSITION: There are scattered areas of fibroglandular density. FINDINGS: RIGHT BREAST: No significant suspicious finding. Benign-appearing calcifications are present. LEFT BREAST: No significant suspicious finding. DIAGNOSTIC CATEGORY 2--BENIGN FINDING. NO CHANGE FROM COMPARISON. RECOMMENDATIONS: ROUTINE MAMMOGRAM AND CLINICAL EVALUATION IN 12 MONTHS. Dictated by: Joao Walker MD on 09/22/2025 at 13:57 Approved by: Joao Walker MD on 09/22/2025 at 13:59
[2025-09-22 10:35] LABS: Hematocrit 41.5 % (36.0-48.0); Hemoglobin 13.5 g/dL (12.0-16.0); Immature Granulocytes Abs Auto 0.01 10^3/uL (0.00-0.03); Immature Granulocytes Pct Auto 0.2 % (0.0-0.5); Lymphocytes Absolute Auto 2.1 10^3/uL (1.2-3.8); Mean Corpuscular HGB Conc 32.5 g/dL (29.9-35.2); Mean Corpuscular Hemoglobin 30.0 pg (26.7-34.0); Mean Corpuscular Volume 92.2 fL (81.0-99.0); Platelet Count 326 10^3/uL (150-450); Red Blood Count 4.50 10^6/uL (4.20-5.40); White Blood Count 5.5 10^3/uL (4.0-11.0)
[2025-09-22 10:55] LABS: Alanine Aminotransferase 31 U/L (14-59); Albumin Globulin Ratio 1.3; Albumin Level 4.3 g/dL (3.4-5.0); Alkaline Phosphatase 58 U/L (46-116); Anion Gap 11.8; Aspartate Amino Transferase 25 U/L (15-37); Blood Urea Nitrogen 15.0 mg/dL (7.0-18.0); Calcium 9.4 mg/dL (8.5-10.1); Carbon Dioxide 31.4 mmol/L (21.0-32.0); Chloride 105 mmol/L (98-107); Cholesterol 221 mg/dL (<=200); Estimated GFR (African America >60 (>=60 mL/min/1.73m^2); Estimated GFR (Non-African Ame >60 (>=60 mL/min/1.73m^2); Free T3 2.85 pg/mL (2.18-3.98); Globulin 3.4 g/dL; Glucose 95 mg/dL (74-106); HDL Cholesterol 75 mg/dL (40-60); Potassium 4.2 mmol/L (3.5-5.1); Sodium 144 mmol/L (136-145); Thyroid Stimulating Hormone 2.156 uIU/mL (0.358-3.740); Total Protein 7.7 g/dL (6.4-8.2); Triglycerides 90 mg/dL (<=150); VLDL CHOLESTEROL 18.0 mg/dL
== END 2025-09-22 09:41 | disposition home or self-care (01) ==
LOC: MAMMO 09:41
PROVIDERS: PCP Family Medicine; Visit Provider Family Medicine
DX: Z00.00 Encounter for general adult medical examination without abnormal findings (principal); Z80.8 Family history of malignant neoplasm of other organs or systems; Z12.31 Encounter for screening mammogram for malignant neoplasm of breast
CPT/HCPCS: 36415; 77063; 77067; 80053; 80061; 83036; 84436; 84443; 84481; 85025